=== PATIENT | female | born 1950 | race Hispanic/Latino ===

== ENCOUNTER 2017-02-06 21:37 | Inpatient (IN) | payer MEDICARE, MEDICAID ==
[2017-02-06 21:53] VITALS: BMI 29.7
--- NOTE | 2017-02-06 21:57 | ED PDOC ---
Arrival/HPI - General Time Seen by Provider: 02/06/17 21:38 Historian: Patient, Family (daughter ) - History of Present Illness Narrative History of Present Illness (Text): 02/06/17 21:54 Merrick Goldberg is a 66 year old female, with a history of diabetes, hyperlipidemia, and CVA, presents to the emergency department for evaluation of altered mental status. According to daughter, patient was eating dinner when she suddenly stopped talking and fell off the the chair onto the floor. Daughter reports that patient's eyes were open, but was non-responsive to verbal commands. Currently patient is awake, alert and oriented X3. Denies any headache, dizziness, fever, chills, chest pain, shortness of breath, nausea, vomiting, urinary incontinence, or any other complaints at this time. PMD: . Time/Duration: Prior to Arrival Symptom Onset: Sudden Symptom Course: Improving Context: Home Past Medical History - Provider Review Nursing Documentation Reviewed: Yes - Infectious Disease Hx of Infectious Diseases: None - Cardiac Hx Cardiac Disorders: Yes Hx Hypertension: Yes - Pulmonary Hx Respiratory Disorders: No - Neurological HX Cerebrovascular Accident: Yes - HEENT Hx HEENT Disorder: No - Renal Hx Renal Disorder: No - Endocrine/Metabolic Hx Diabetes Mellitus Type 2: Yes - Hematological/Oncological Hx Blood Disorders: Yes Hx Anemia: Yes Hx Blood Transfusions: No - Integumentary Hx Dermatological Disorder: No - Musculoskeletal/Rheumatological Hx Arthritis: Yes - Gastrointestinal Hx Gastrointestinal Disorders: No - Genitourinary/Gynecological Hx Genitourinary Disorders: Yes Hx Urinary Tract Infection: Yes - Psychiatric Hx Psychophysiologic Disorder: No Hx Substance Use: No - Surgical History Hx Cardiac Catheterization: Yes (MANY MANY YEARS AGO) Hx Coronary Stent: Yes (DAUGHTER THINKS SO , BUT NOT SURE) - Anesthesia Hx Anesthesia: No (IV SEDATION ONLY) Hx Anesthesia Reactions: No Hx Malignant Hyperthermia: No Family/Social History - Physician Review Nursing Documentation Reviewed: Yes Family/Social History: No Known Family HX Smoking Status: Heavy Smoker > 10 Cigarettes Daily Hx Alcohol Use: No Hx Substance Use: No Allergies/Home Meds Allergies/Adverse Reactions: Allergies No Known Allergies Allergy (Verified 06/29/16 06:57) Review of Systems - Physician Review All systems were reviewed & negative as marked: Yes - Review of Systems Constitutional: Normal. absent: Fatigue, Fevers Respiratory: Normal. absent: SOB, Cough Cardiovascular: Normal. absent: Chest Pain, Palpitations Genitourinary Female: Normal. absent: Dysuria, Frequency Neurological: Other (Altered mental status ). absent: Focal Weakness, Seizure Psychiatric: Normal. absent: Anxiety, Depression Physical Exam Vital Signs Temp Pulse Resp BP Pulse Ox 02/06/17 23:38 68 19 138/65 100 02/06/17 21:53 97.7 F 64 16 132/56 L 100 Temperature: Afebrile Blood Pressure: Normal Pulse: Regular Respiratory Rate: Normal Appearance: Positive for: Well-Appearing, Non-Toxic, Comfortable Pain Distress: None Mental Status: Positive for: Alert and Oriented X 3 - Systems Exam Head: Present: Atraumatic, Normocephalic Pupils: Present: PERRL Extroacular Muscles: Present: EOMI Mouth: Present: Moist Mucous Membranes Neck: Present: Normal Range of Motion Respiratory/Chest: Present: Clear to Auscultation, Good Air Exchange. No: Respiratory Distress, Accessory Muscle Use Cardiovascular: Present: Regular Rate and Rhythm, Normal S1, S2. No: Murmurs Abdomen: Present: Normal Bowel Sounds. No: Tenderness, Distention, Peritoneal Signs Upper Extremity: Present: Normal Inspection. No: Cyanosis, Edema Lower Extremity: Present: Normal Inspection. No: Edema Neurological: Present: GCS=15, CN II-XII Intact, Speech Normal, Motor Func Grossly Intact, Normal Sensory Function Skin: Present: Warm, Dry, Normal Color. No: Rashes Psychiatric: Present: Alert, Oriented x 3, Normal Insight, Normal Concentration Medical Decision Making ED Course and Treatment: 02/06/17 22:01 Impression: A 66 year old female who presents to the emergency department for evaluation of syncope and right sided facial droop. Differential Diagnosis included but are not limited to: TIA Plan: -- CT Head -- EKG -- Labs -- Chest X-ray -- Reassess and disposition Progress Notes: 02/06/17 22:01 Code stroke called Case discussed with who does not recommend tPA because symptoms have resolved. EKG reviewed by me: NSR @ [address]pm[address] Left [address] deviation[address] Head reviewed by me: IMPRESSION: No acute findings. Patient evaluated by , who agrees with the plan to observe patient at telemetry for TIA. Accepts patient under hospitalist service. - Lab Interpretations Lab Results: 02/06/17 22:20 02/06/17 22:20 Lab Results 02/06/17 22:20: Blood Type AB NEGATIVE, Antibody Screen Negative, BBK History Checked No verified bt 02/06/17 22:20: Sodium 139, Potassium 4.7, Chloride 108 H, Carbon Dioxide 24, Anion Gap 12, BUN 20, Creatinine 0.8, Est GFR ( Amer) > 60, Est GFR (Non- Af Amer) > 60, Random Glucose 227 H, Calcium 9.2, Total Bilirubin 0.3, AST 27, ALT 33, Alkaline Phosphatase 75, Troponin I < 0.01, Total Protein 7.5, Albumin 4.1, Globulin 3.4, Albumin/Globulin Ratio 1.2, Triglycerides 104, Cholesterol 177, LDL Cholesterol Direct 75, HDL Cholesterol 80 H 02/06/17 22:20: PT 10.8, INR 1.00, APTT 20.5 L 02/06/17 22:20: WBC 9.1 D, RBC 3.49 L, Hgb 10.0 L, Hct 29.7 L, MCV 85.1, MCH 28.7, MCHC 33.7, RDW 12.9, Plt Count 249, MPV 10.9, Gran % 59.7, Lymph % (Auto) 34.1, Preble % (Auto) 4.7, Eos % (Auto) 1.0 L, Baso % (Auto) 0.5, Gran # 5.44, Lymph # 3.1, Preble # 0.4, Eos # 0.1, Baso # 0.05 I have reviewed the lab results: Yes - RAD Interpretation Narrative RAD Interpretations (Text): EXAM: CT Head Without Intravenous Contrast FINDINGS: There is atrophy. There is chronic small vessel ischemic disease. Again seen is old lacunar infarct in the right basal ganglia with ex vacuo dilatation of the adjacent right lateral ventricle unchanged from prior. The previously seen left parietal occipital acute infarct has evolved to chronic encephalomalacia. No acute infarct. There is no hemorrhage or edema. No significant fluid in the sinuses. The osseous structures are normal. IMPRESSION: No acute findings. Radiology Orders: 02/06/17 21:53 HEAD W/O (CODE STROKE) [CT] Stat CHEST PORTABLE [RAD] Stat Outer Diameter Technician: Radiologist - Medication Orders Current Medication Orders: Acetaminophen (Tylenol 325mg Tab) 650 mg PO Q6H PRN PRN Reason: Pain, moderate (4-7) Aspirin (Aspirin Chewable) 81 mg PO DAILY [facility] Atorvastatin Calcium (Lipitor) 40 mg PO HS [facility] Donepezil HCl (Aricept) 5 mg PO HS [facility] Enoxaparin Sodium (Lovenox) 40 mg SC DAILY [facility] PRN Reason: Protocol Hydralazine HCl (Apresoline) 10 mg IVP Q6H PRN PRN Reason: Systolic Blood Pressure Sodium Chloride (Sodium Chloride 0.9%) 1,000 mls @ 100 mls/hr IV .Q10H [facility] Stop: 02/07/17 19:14 Last Admin: 02/06/17 23:47 Dose: 100 mls/hr Insulin Detemir (Levemir) 20 unit SC HS [facility] Nicotine (Nicoderm Cq) 1 patch TD DAILY [facility] Discontinued Medications Insulin Detemir (Levemir) 10 unit SC ONCE ONE Stop: 02/07/17 00:02 Last Admin: 02/07/17 00:55 Dose: Not Given Non-Admin Reason: Patient Refused NIHSS Scale ([place]) Time Performed: 21:50 - How Severe is the Stoke Baseline Level of Consciousness: 0=Alert LOC to Questions: 0=Both comments correct LOC to commands: 0=Obeys both correctly Best Gaze: 0=Normal Visual: 0=No visual loss Facial: 0=Normal Motor Arm - Left: 0=No drift Motor Arm - Right: 0=No drift Motor Leg - Left: 0=No drift Motor Leg - Right: 0=No drift Limb Ataxia: 0=Absent Sensory: 0=Normal Best Language: 0=No aphasia Dysarthia: 0=Normal articulation Extinction & Inattention (Neglect): 0=Normal, no object Score: 0 Risk Level: No Stroke Risk rTPA Inclusion/Exclusion - Refusal of Treatment Patient Refused Treatment: No - Inclusion Criteria for Altepase Patient is 18 years or Older: Yes The Clinical Diagnosis of Ischemic Stroke That is Causing a Potentially Disabling Neurological Deficit: No Time of Onset is Well Established to be Less Than 270 Minute Before Treatment Would Begin: Yes Risk/Benefit Discussed With Patient/Family Member Present: Yes - Exclusion Criteria for Altepase Uncontrolled Hypertension at Time of Treatment (Systolic BP above 185 or Diastolic BP above 110 mmHg): No - Warning to TPA With Conditions Following Conditions Weighed Against Anticipated Benefit: Yes Condition: Rapid Improvement - Scribe Statement The provider has reviewed the documentation as recorded by the Leandroibe Pablo Saha Provider Attestation: All medical record entries made by the Leandroibmahendra were at my direction and personally dictated by me. I have reviewed the chart and agree that the record accurately reflects my personal performance of the history, physical exam, medical decision making, and the department course for this patient. I have also personally directed, reviewed, and agree with the discharge instructions and disposition. Disposition/Present on Arrival - Present on Arrival Any Indicators Present on Arrival: No History of DVT/PE: No History of Uncontrolled Diabetes: Yes Urinary Catheter: No History Surgical Site Infection Following: None - Disposition Have Diagnosis and Disposition been Completed?: Yes Diagnosis: Altered mental state, Syncope, Transient ischemic attack Disposition: HOSPITALIZED Disposition Time: 22:45 Condition: GOOD
--- NOTE | 2017-02-06 22:17 | CT ---
EXAM: CT Head Without Intravenous Contrast CLINICAL HISTORY: 66 years old, female; Signs and symptoms; Other: Possible CVA; Additional info: Code stroke TECHNIQUE: Axial computed tomography images of the head/brain without intravenous contrast. This CT exam was performed using one or more of the following dose reduction techniques: automated exposure control, adjustment of the mA and/or kV according to patient size, and/or use of iterative reconstruction technique. EXAM DATE/TIME: 02/06/2017 9:53 PM COMPARISON: CT - HEAD W/O CONTRAST 09/28/2016 9:23:25 PM FINDINGS: There is atrophy. There is chronic small vessel ischemic disease. Again seen is old lacunar infarct in the right basal ganglia with ex vacuo dilatation of the adjacent right lateral ventricle unchanged from prior. The previously seen left parietal occipital acute infarct has evolved to chronic encephalomalacia. No acute infarct. There is no hemorrhage or edema. No significant fluid in the sinuses. The osseous structures are normal. IMPRESSION: No acute findings.
[2017-02-06 22:28] LABS: ADD MANUAL DIFF? NO
[2017-02-06 22:42] LABS: ALB/GLOB RATIO 1.2 (1.1-1.8); ALKALINE PHOSPHATASE 75 U/L (38-133); ALT/SGPT 33 U/L (7-56); AST/SGOT 27 U/L (15-39); BILIRUBIN,TOTAL 0.3 mg/dL (0.2-1.3); BLOOD UREA NITROGEN 20 mg/dL (7-21); CALCIUM 9.2 mg/dL (8.4-10.5); CARBON DIOXIDE 24 mmol/L (21-33); CHLORIDE 108 mmol/L (98-107); CHOLESTEROL 177 mg/dL (130-200); GFR AFRICAN-AMERICAN > 60; GLUCOSE,RANDOM 227 mg/dL (70-110); POTASSIUM 4.7 mmol/L (3.6-5.0); SODIUM 139 mmol/L (132-148); TOTAL PROTEIN 7.5 g/dL (5.8-8.3)
[2017-02-06 23:03] LABS: BASO # 0.05 K/mm3 (0.0-2.0); BASO % 0.5 % (0.0-3.0); EOS # 0.1 (0.0-0.7); GRAN # 5.44 (1.4-6.5); GRAN % 59.7 % (50.0-68.0); HEMATOCRIT 29.7 % (36.0-48.0); LYMPH # 3.1 (1.2-3.4); LYMPH % 34.1 % (22.0-35.0); MEAN CELL VOLUME 85.1 fL (80.0-105.0); MEAN CORPUSCULAR HEMOGLOBIN 28.7 pg (25.0-35.0); MEAN CORPUSCULAR HGB CONC 33.7 g/dl (31.0-37.0); MEAN PLATELET VOLUME 10.9 fl (7.0-11.0); MONO # 0.4 (0.1-0.6); MONO % 4.7 % (1.0-6.0); PLATELET COUNT 249 10^3/uL (120.0-450.0); RED CELL DISTRIBUTION WIDTH 12.9 % (11.5-14.5); TROPONIN I < 0.01 ng/mL; WHITE BLOOD COUNT 9.1 10^3/ul (4.5-11.0)
[2017-02-06 23:05] LABS: PARTIAL THROMBOPLASTIN TIME 20.5 Seconds (23.7-30.8)
--- NOTE | 2017-02-06 23:13 | CP.PCM.HP ---
History of Present Illness - History of Present Illness History of Present Illness: CC: CODE Stroke after AMS today HPI: 66 y/o female with a PMHx CVA (09/2016), Htn, DM, Dementia is brought in to the ED today via EMS due to a sudden change in her mental status witness by her family. Patient's daughter states they were all at the dinner table eating dinner when the patient suddenly stopped talking and appeared to have a blank stare on her face and fell off her chair on her side to the floor. She remained awake and did not lose conciousness however was not verbally responsive and had to have the food in her mouth removed by hand. Her daughter reports that she appeared "pale and yellow." EMS is reported to have found the patient with an adequate FSBS of 177 however blood pressure was 90/50mmHg and she received a 500cc IVF bolus en route to the ED. In the ED a Code stroke was called and her head CT returned negative for an acute CVA. tPA was not recommended as patient's symptoms resolved and she currently did not complain of having major defecits. The patient herself currently is complaining of left lower extremity weakness as well as numbness and tingling which is new, otherwise denies any complaints of shortness of breath, chest pain/heaviness, dizziness, light headedness, fever, chills, headache, nausea or vomiting. The patient's daughter states that the patient had stopped smoking for about 1 month after her last stroke, however began smoking again a few weeks after returning home from rehab. PMhx: Dementia (diagnosed 05/2016, daughter is unable to relay which type) CVA 09/2016 (patient was [place] [facility], treated for about a week and then discharged to [facility] where she stayed another 2 weeks) Htn DM OA Allergies:NKDA Fam Hx: DM, Htn, CAD in multiple family members Soc Hx: 2 ppd for over 50yrs; denies etoh use; denies illicit drug use, lives at home with her daughter and her family Meds: Levemir 20units SQ hs Metformin 1000mg po bid ASA 81mg po daily Donepezil - dose unknown Zestril 5mg po daily Lipitor 40mg po hs Tylenol prn Ferrex pills Present on Admission - Present on Admission Any Indicators Present on Admission: Yes History of Uncontrolled Diabetes: Yes Review of Systems - Review of Systems Review of Systems: As per HPI otherwise negative for a 12 point ROS Past Patient History - Infectious Disease Hx of Infectious Diseases: None - Past Medical History & Family History Past Medical History?: Yes - Past Social History Smoking Status: Heavy Smoker > 10 Cigarettes Daily Alcohol: None Drugs: Denies Home Situation {Lives}: With Family - CARDIAC Hx Cardiac Disorders: Yes Hx Hypertension: Yes - PULMONARY Hx Respiratory Disorders: No - NEUROLOGICAL HX Cerebrovascular Accident: Yes - HEENT Hx HEENT Problems: No - RENAL Hx Chronic Kidney Disease: No - ENDOCRINE/METABOLIC Hx Diabetes Mellitus Type 2: Yes - HEMATOLOGICAL/ONCOLOGICAL Hx Blood Disorders: Yes Hx Anemia: Yes Hx Blood Transfusions: No - INTEGUMENTARY Hx Dermatological Problems: No - MUSCULOSKELETAL/RHEUMATOLOGICAL Hx Arthritis: Yes - GASTROINTESTINAL Hx Gastrointestinal Disorders: No - GENITOURINARY/GYNECOLOGICAL Hx Genitourinary Disorders: Yes Hx Urinary Tract Infection: Yes - PSYCHIATRIC Hx Psychophysiologic Disorder: No Hx Substance Use: No - SURGICAL HISTORY Hx Cardiac Catheterization: Yes (MANY MANY YEARS AGO) Hx Coronary Stent: Yes (DAUGHTER THINKS SO , BUT NOT SURE) - ANESTHESIA Hx Anesthesia: No (IV SEDATION ONLY) Hx Anesthesia Reactions: No Hx Malignant Hyperthermia: No Meds Allergies/Adverse Reactions: Allergies Allergy/AdvReac Type Severity Reaction Status Date / Time No Known Allergies Allergy Verified 06/29/16 06:57 Physical Exam - Constitutional Appears: Non-toxic, No Acute Distress - Head Exam Head Exam: ATRAUMATIC, NORMOCEPHALIC - Eye Exam Eye Exam: EOMI - ENT Exam ENT Exam: Mucous Membranes Moist - Neck Exam Neck exam: Positive for: Normal Inspection - Respiratory Exam Respiratory Exam: Clear to Auscultation Bilateral, NORMAL BREATHING PATTERN. absent: Rales, Rhonchi, Wheezes - Cardiovascular Exam Cardiovascular Exam: REGULAR RHYTHM, +S1, +S2 - GI/Abdominal Exam GI & Abdominal Exam: Soft. absent: Distended, Guarding, Rebound, Tenderness - Rectal Exam Rectal Exam: Deferred - Neurological Exam Neurological exam: Alert, CN II-XII Intact, Oriented x3 Additional comments: 5/5 strength RUE/RLE; 3/5 strength LLE, 5/5 strength LUE; unable to discriminate between 2 points on the left lower extremity, able to tell on the RLE - Psychiatric Exam Psychiatric exam: Normal Affect, Normal Mood - Skin Skin Exam: Dry, Intact, Normal Color, Warm Results - Vital Signs Recent Vital Signs: Last Vital Signs Temp 97.7 F 02/06/17 21:53 Pulse 64 02/06/17 21:53 Resp 16 02/06/17 21:53 BP 132/56 L 02/06/17 21:53 Pulse Ox 100 02/06/17 21:53 - Labs Result Diagrams: 02/06/17 22:20 Labs: Laboratory Results - last 24 hr 02/06/17 22:20 Sodium 139 Potassium 4.7 Chloride 108 H Carbon Dioxide 24 Anion Gap 12 BUN 20 Creatinine 0.8 Est GFR ( Amer) > 60 Est GFR (Non-Af Amer) > 60 Random Glucose 227 H Calcium 9.2 Total Bilirubin 0.3 AST 27 ALT 33 Alkaline Phosphatase 75 Total Protein 7.5 Albumin 4.1 Globulin 3.4 Albumin/Globulin Ratio 1.2 Triglycerides 104 Cholesterol 177 HDL Cholesterol 80 H - EKG Data EKG Interpreted by: Myself EKG shows normal: Sinus rhythm (NSR @ 67 bpm; no ST elevations or depressions noted) - Imaging and Cardiology CT scan - head Status: Image reviewed by me, Report reviewed by me (no acute ICH/mass/shift) Assessment & Plan - Assessment and Plan (Free Text) Assessment: 66 y/o female with a PMHx Htn, DM, CVA earlier this year, tobacco use and Dementia presents to the ED after a brief period of AMS concerning for another CVA. Initial CT of the head is negative and patient is now more alert and responsive however does still have complaints of numbness and weakness of her left lower extremity. She will be admitted to further evaluate for TIA vs CVA. Plan: 1) AMS - CVA vs TIA vs transient hypotension - initial CT Head is negative; will place on neurocheck Q4h; c/w ASA 81mg po daily, lipitor 40hs; neuro consult with Dr. Reynolds who is aware of the patient. Patient was noted to improve rapidly with the administration of a 500cc fluid bolus by EMS which may also be a cause for her sudden change in mental status, however it does not explain the new left lower extremity weakness and numbness. May need an MRI tomorrow if her weakness persists; will defer to neurology. PT/OT eval as well as swallow eval in the aM. 2) Htn - will monitor and hold off on hypotensive agents for now 3) DM - will place on Levemir 20units HS + ISS; hold metformin for now; FS ACHS 4) Dementia - c/w donepezil 5mg po hs beginning tomorrow after she is seen by a speech therapist for a formal swallow evaluation 5) GI/DVT ppx - will place her on protonix po daily; Lovenox SQ QD 6) Tobacco use - nicotine patch 14mcg td daily while she is an inpatient.
[2017-02-06] MEDS ORDERED: Sodium Chloride 0.9% 1,000 ML IV SCH (23:15)
[2017-02-07] MEDS ORDERED: Insulin Detemir 100 units/ml Vial (Levemir) SC ONE (00:01)
[2017-02-07 06:57] LABS: ADD MANUAL DIFF? NO
[2017-02-07 07:01] LABS: BASO # 0.03 K/mm3 (0.0-2.0); BASO % 0.4 % (0.0-3.0); EOS # 0.1 (0.0-0.7); EOS % 0.9 % (1.5-5.0); GRAN # 5.03 (1.4-6.5); GRAN % 61.3 % (50.0-68.0); HEMATOCRIT 30.5 % (36.0-48.0); LYMPH # 2.7 (1.2-3.4); LYMPH % 32.8 % (22.0-35.0); MEAN CELL VOLUME 84.5 fL (80.0-105.0); MEAN CORPUSCULAR HEMOGLOBIN 29.4 pg (25.0-35.0); MEAN CORPUSCULAR HGB CONC 34.8 g/dl (31.0-37.0); MEAN PLATELET VOLUME 10.7 fl (7.0-11.0); MONO # 0.4 (0.1-0.6); MONO % 4.6 % (1.0-6.0); PLATELET COUNT 234 10^3/uL (120.0-450.0); RED CELL DISTRIBUTION WIDTH 12.9 % (11.5-14.5); WHITE BLOOD COUNT 8.2 10^3/ul (4.5-11.0)
[2017-02-07 07:17] LABS: ALB/GLOB RATIO 1.3 (1.1-1.8); ALKALINE PHOSPHATASE 79 U/L (38-133); ALT/SGPT 31 U/L (7-56); AST/SGOT 30 U/L (15-39); BILIRUBIN,TOTAL 0.3 mg/dL (0.2-1.3); BLOOD UREA NITROGEN 20 mg/dL (7-21); CARBON DIOXIDE 24 mmol/L (21-33); CHLORIDE 111 mmol/L (95-110); GFR AFRICAN-AMERICAN > 60; GLUCOSE,RANDOM 242 mg/dL (70-110); POTASSIUM 4.3 mmol/L (3.6-5.0); SODIUM 141 mmol/L (132-148); TOTAL PROTEIN 7.3 g/dL (5.8-8.3)
--- NOTE | 2017-02-07 08:01 | RAD ---
HISTORY: tia COMPARISON: 09/28/2016 FINDINGS: LUNGS: No active pulmonary disease. PLEURA: No significant pleural effusion identified, no pneumothorax apparent. CARDIOVASCULAR: Normal. OSSEOUS STRUCTURES: No significant abnormalities. VISUALIZED UPPER ABDOMEN: Normal. OTHER FINDINGS: None. IMPRESSION: No active disease.
[2017-02-07] MEDS: Enoxaparin 40 mg Syringe SC SCH (09:34)
--- NOTE | 2017-02-07 14:26 | CP.PCM.PN ---
<Henry Whyte - Last Filed: 02/07/17 15:38> Subjective - Date & Time of Evaluation Date of Evaluation: 02/07/17 Time of Evaluation: 09:00 - Subjective Subjective: Patient seen and examined this morning w/ medical attending. Patient appears to be in good mood. Patient is out of bed to chair. Patient reports improvement in her left lower extremity, she states she has better control over it than she did yesterday. No acute events over night. Tolerating diet. Objective - Vital Signs/Intake and Output Vital Signs (last 24 hours): Temp Pulse Resp BP Pulse Ox 98 F 69 20 166/57 H 99 02/07/17 12:00 02/07/17 12:28 02/07/17 12:00 02/07/17 12:28 02/07/17 05:47 Intake and Output: 02/07/17 02/07/17 06:59 18:59 Intake Total 500 Output Total 0 Balance 500 - Medications Medications: Current Medications Acetaminophen (Tylenol 325mg Tab) 650 mg PO Q6H PRN PRN Reason: Pain, moderate (4-7) Aspirin (Aspirin Chewable) 81 mg PO DAILY [facility] Last Admin: 02/07/17 09:31 Dose: 81 mg Atorvastatin Calcium (Lipitor) 40 mg PO HS [facility] Donepezil HCl (Aricept) 5 mg PO HS [facility] Enoxaparin Sodium (Lovenox) 40 mg SC DAILY [facility] PRN Reason: Protocol Last Admin: 02/07/17 09:34 Dose: 40 mg Hydralazine HCl (Apresoline) 10 mg IVP Q6H PRN PRN Reason: Systolic Blood Pressure Insulin Detemir (Levemir) 20 unit SC HS [facility] Insulin Human Regular (Humulin R Low) 0 units SC ACHS [facility] PRN Reason: Protocol Lisinopril (Zestril) 5 mg PO DAILY [facility] Last Admin: 02/07/17 12:28 Dose: 5 mg Nicotine (Nicoderm Cq) 1 patch TD DAILY [facility] Last Admin: 02/07/17 09:31 Dose: 1 patch - Labs Labs: 02/07/17 06:45 02/07/17 06:45 PT 10.8 Seconds (9.9-11.8) 02/06/17 22:20 INR 1.00 (0.93-1.08) 02/06/17 22:20 APTT 20.5 Seconds (23.7-30.8) L 02/06/17 22:20 - Constitutional Appears: No Acute Distress - Head Exam Head Exam: NORMOCEPHALIC - Eye Exam Eye Exam: Normal appearance - ENT Exam ENT Exam: Mucous Membranes Moist - Respiratory Exam Respiratory Exam: NORMAL BREATHING PATTERN - Cardiovascular Exam Cardiovascular Exam: +S1, +S2. absent: Tachycardia - GI/Abdominal Exam GI & Abdominal Exam: Soft. absent: Distended, Firm, Guarding, Rigid, Tenderness - Neurological Exam Neurological Exam: Alert, Awake Neuro motor strength exam: Left Upper Extremity: 4, Right Upper Extremity: 5, Left Lower Extremity: 3 (left thigh), Right Lower Extremity: 5 - Psychiatric Exam Psychiatric exam: Normal Mood - Skin Skin Exam: Dry, Warm Assessment and Plan - Assessment and Plan (Free Text) Assessment: 66F with a PMHx HTN , DM, CVA (09/2016), tobacco use and Dementia presents to the ED after a brief period of AMS concerning for another CVA. Initial CT of the head is negative and patient is now more alert and responsive reports numbness and weakness have improved. Plan: 1) AMS - CVA vs TIA vs transient hypotension -Initial CT Head is negative -neurocheck Q4h -ASA 81mg po daily -Lipitor 40hs -Neuro consult with Dr. Reynolds, recs appreciated -F/u MRI -PT/OT eval 2) HTN -will monitor -Lisinopril 5mg daily 3) DM -Levemir 20units HS + ISS; hold metformin for now; FS ACHS -Resume metformin 4) Dementia - donepezil 5mg po hs 5) GI/DVT ppx -Protonix -Lovenox 6) Tobacco use - nicotine patch 14mcg td daily while she is an inpatient. Assessment and plan discussed with medical attending. <Zheng CARRILLO,Marcia - Last Filed: 02/07/17 17:45> Objective - Vital Signs/Intake and Output Vital Signs (last 24 hours): Temp Pulse Resp BP Pulse Ox 98 F 61 20 166/57 H 99 02/07/17 12:00 02/07/17 14:00 02/07/17 12:00 02/07/17 12:28 02/07/17 05:47 Intake and Output: 02/07/17 02/07/17 06:59 18:59 Intake Total 1380 Output Total 2000 Balance -620 - Medications Medications: Current Medications Acetaminophen (Tylenol 325mg Tab) 650 mg PO Q6H PRN PRN Reason: Pain, moderate (4-7) Aspirin (Aspirin Chewable) 81 mg PO DAILY [facility] Last Admin: 02/07/17 09:31 Dose: 81 mg Atorvastatin Calcium (Lipitor) 40 mg PO HS [facility] Donepezil HCl (Aricept) 5 mg PO HS [facility] Enoxaparin Sodium (Lovenox) 40 mg SC DAILY [facility] PRN Reason: Protocol Last Admin: 02/07/17 09:34 Dose: 40 mg Hydralazine HCl (Apresoline) 10 mg IVP Q6H PRN PRN Reason: Systolic Blood Pressure Insulin Detemir (Levemir) 20 unit SC HS [facility] Insulin Human Regular (Humulin R Low) 0 units SC ACHS [facility] PRN Reason: Protocol Lisinopril (Zestril) 5 mg PO DAILY [facility] Last Admin: 02/07/17 12:28 Dose: 5 mg Metformin HCl (Glucophage) 1,000 mg PO BID [facility] Last Admin: 02/07/17 17:36 Dose: 1,000 mg Nicotine (Nicoderm Cq) 1 patch TD DAILY [facility] Last Admin: 02/07/17 09:31 Dose: 1 patch - Labs Labs: 02/07/17 06:45 02/07/17 06:45 PT 10.8 Seconds (9.9-11.8) 02/06/17 22:20 INR 1.00 (0.93-1.08) 02/06/17 22:20 APTT 20.5 Seconds (23.7-30.8) L 02/06/17 22:20 Attending/Attestation - Attestation I have personally seen and examined this patient.: Yes I have fully participated in the care of the patient.: Yes I have reviewed all pertinent clinical information, including history, physical exam and plan: Yes Notes (Text): 02/07/17 17:43 Patient was seen and examined with medical aides teacher .Agreed with resident assessment and plan. Patient leg weakness has improved.She is feeling at her base line.We will follow up MRI of Brain and will follow up Neurology consult. If MRI showed any new infarct, will switch aspirin to Plavix. Management plan was discussed in detail with patient Education was provided.
[2017-02-07] MEDS: Insulin Reg-LOW-Coverage SC SCH ×2 (17:36→21:49)
--- NOTE | 2017-02-07 19:33 | CON ---
DATE: 02/07/2017 CHIEF COMPLAINT: Altered mental status. HISTORY OF PRESENT ILLNESS: This is a 66-year-old woman with a history of CVA in 09/2016, hypertensio n, dementia, type 2 diabetes mellitus who had a sudden change in mental status witnessed by the famil y where she was at the dinner table eating dinner when suddenly she started talking and had a blank s tare on her face and fell off her chair on the side and did not lose any consciousness but had food i n her mouth and she appeared kind of pale and yellow; however, her blood pressure was taken where it was 90/50 and received a 500 mL IV bolus in the en route. Currently, CT head showed no acute intracr anial abnormalities. There is an old right lacunar basal ganglia infarct. Currently, she is sitting up and doing much better. She is no longer complaining of any paresthesias in her extremities, movi ng all extremities without any difficulty and is smiling and tolerating her diet. Her hemoglobin A1c is 10.6 indicating poorly controlled diabetes. She does have evidence of cognitive impairment on ex amination. PAST MEDICAL HISTORY: Type 2 diabetes mellitus, hypertension, CVA on 09/2016, history of tobacco use. SOCIAL HISTORY: Still smokes less than 10 cigarettes per day. No illicit alcohol or illicit drug us e. REVIEW OF SYSTEMS: A 14-point review of systems is negative except in the HPI. ALLERGIES: No known allergies. CURRENT MEDICATIONS: Reviewed via nurses' reconciliation sheet. PHYSICAL EXAMINATION: VITAL SIGNS: Temperature 97.6, pulse rate is 64, blood pressure 160/77, respiratory rate of 20. GENERAL: The patient is sitting up in bed in no acute distress. HEENT: Atraumatic, normocephalic. PERRLA. Extraocular muscles is intact. NECK: Supple, no JVD, no adenopathy noted. LUNGS: Clear to auscultation. No adventitious sounds. HEART: S1, S2, normal rate and rhythm. No murmurs, rubs, or gallops. ABDOMEN: Soft, nontender, nondistended. Bowel sounds are present. EXTREMITIES: No clubbing, no cyanosis. Peripheral pulses 2+ felt bilaterally. NEUROLOGIC: The patient is alert, oriented to person, place, month and year. Speech is fluent, with out any errors. Cranial nerves II-XII are intact. MOTOR: Moves all extremities equally. No pronator drift seen. SENSORY: Decreased light touch, pinprick bilaterally. Decreased vibration in toes. DTRs are 2+ throughout and 1 in both knees and 0 at the ankles. She does have evidence of cognitive impairmen t. She has poor attention span, poor recall after 5 minutes and slow thought process. COORDINATION: [id number] intact. GAIT: Deferred for now. LABORATORY DATA: A1c is 10.6 indicating poorly controlled diabetes. CT head showed no acute intracr anial abnormalities. Sodium is 141, potassium 4.3, chloride of 111, carbon dioxide 24, BUN of 20, cr eatinine 0.7, glucose of 242. ASSESSMENT AND PLAN: This is a 66-year-old woman with a past medical history of hypertension, diabet es, history of cerebrovascular accident earlier this year, tobacco use, dementia, had a brief period of altered mental status and CT head showed no acute intracranial abnormality. It was found that she had a low systolic and diastolic blood pressure of 90/50 and was given transient IV bolus of fluid a nd improved. Currently, she is denying any paresthesias in the extremities as she was complaining of on her admission. She does have evidence of diabetic peripheral neuropathy along with her uncontrol led diabetes with an A1c of 10.6. As well, she does have evidence of moderate cognitive impairment f rom underlying medical conditions. At this time, recommend: 1. Aspirin 81 mg and Lipitor 40 mg p.o. daily for stroke prevention. 2. Diabetic education needs to be given. Needs to have blood sugars between 140-180 and needs andrew r diabetic control given the uncontrolled A1c of 10.6. 3. Monitor electrolytes and correct accordingly. 4. Consider some physical therapy and follow up with the primary team with no further neurological w orkup needed at this time; will sign off. Arian Reynolds MD cc: [id number] TT: 02/07/2017 19:32:28 Confirmation # [id number] Dictation # [id number] eliza
[2017-02-07] MEDS: Insulin Detemir 100 units/ml Vial (Levemir) SC SCH (21:52)
--- NOTE | 2017-02-08 01:43 | CARD ---
APPROVED REPORT EKG Measurement Heart [id number] <Conclusion> Normal sinus rhythm Left axis deviation Moderate voltage criteria for LVH, may be normal variant Cannot rule out Septal infarct, age undetermined Abnormal ECG
[2017-02-08 07:37] LABS: ADD MANUAL DIFF? NO
[2017-02-08] MEDS: Insulin Reg-LOW-Coverage SC SCH ×4 (07:39→22:10)
[2017-02-08 07:47] LABS: BASO # 0.03 K/mm3 (0.0-2.0); BASO % 0.5 % (0.0-3.0); EOS # 0.1 (0.0-0.7); EOS % 1.4 % (1.5-5.0); GRAN # 2.63 (1.4-6.5); GRAN % 41.3 % (50.0-68.0); HEMATOCRIT 29.1 % (36.0-48.0); LYMPH # 3.2 (1.2-3.4); LYMPH % 50.4 % (22.0-35.0); MEAN CELL VOLUME 84.3 fL (80.0-105.0); MEAN CORPUSCULAR HEMOGLOBIN 28.1 pg (25.0-35.0); MEAN CORPUSCULAR HGB CONC 33.3 g/dl (31.0-37.0); MEAN PLATELET VOLUME 10.7 fl (7.0-11.0); MONO # 0.4 (0.1-0.6); MONO % 6.4 % (1.0-6.0); PLATELET COUNT 266 10^3/uL (120.0-450.0); RED CELL DISTRIBUTION WIDTH 13.2 % (11.5-14.5); WHITE BLOOD COUNT 6.4 10^3/ul (4.5-11.0)
[2017-02-08] MEDS: Enoxaparin 40 mg Syringe SC SCH (09:41)
--- NOTE | 2017-02-08 12:24 | CP.PCM.DIS ---
Provider - Provider Date of Admission: 02/06/17 22:47 Attending physician: Marcia Calzada MD Primary care physician: Avelino Greenfield MD [facility] Course - Lab Results Lab Results: Most Recent Lab Values WBC 6.4 10^3/ul (4.5-11.0) D 02/08/17 05:00 RBC 3.45 10^6/uL (3.5-6.1) L 02/08/17 05:00 Hgb 9.7 gm/dL (12.0-16.0) L 02/08/17 05:00 Hct 29.1 % (36.0-48.0) L 02/08/17 05:00 MCV 84.3 fL (80.0-105.0) 02/08/17 05:00 MCH 28.1 pg (25.0-35.0) 02/08/17 05:00 MCHC 33.3 g/dl (31.0-37.0) 02/08/17 05:00 RDW 13.2 % (11.5-14.5) 02/08/17 05:00 Plt Count 266 10^3/uL (120.0-450.0) 02/08/17 05:00 MPV 10.7 fl (7.0-11.0) 02/08/17 05:00 Gran % 41.3 % (50.0-68.0) L 02/08/17 05:00 Lymph % (Auto) 50.4 % (22.0-35.0) H 02/08/17 05:00 Ransom % (Auto) 6.4 % (1.0-6.0) H 02/08/17 05:00 Eos % (Auto) 1.4 % (1.5-5.0) L 02/08/17 05:00 Baso % (Auto) 0.5 % (0.0-3.0) 02/08/17 05:00 Gran # 2.63 (1.4-6.5) 02/08/17 05:00 Lymph # 3.2 (1.2-3.4) 02/08/17 05:00 Ransom # 0.4 (0.1-0.6) 02/08/17 05:00 Eos # 0.1 (0.0-0.7) 02/08/17 05:00 Baso # 0.03 K/mm3 (0.0-2.0) 02/08/17 05:00 PT 10.8 Seconds (9.9-11.8) 02/06/17 22:20 INR 1.00 (0.93-1.08) 02/06/17 22:20 APTT 20.5 Seconds (23.7-30.8) L 02/06/17 22:20 Sodium 141 mmol/L (132-148) 02/07/17 06:45 Potassium 4.3 mmol/L (3.6-5.0) 02/07/17 06:45 Chloride 111 mmol/L (95-110) H 02/07/17 06:45 Carbon Dioxide 24 mmol/L (21-33) 02/07/17 06:45 Anion Gap 10 (10-20) 02/07/17 06:45 BUN 20 mg/dL (7-21) 02/07/17 06:45 Creatinine 0.7 mg/dL (0.5-1.4) 02/07/17 06:45 Est GFR ( Amer) > 60 02/07/17 06:45 Est GFR (Non-Af Amer) > 60 02/07/17 06:45 POC Glucose (mg/dL) 188 mg/dL (65-110) H 02/08/17 11:15 Random Glucose 242 mg/dL (70-110) H 02/07/17 06:45 Hemoglobin A1c 10.6 % (4.2-6.5) H 02/07/17 06:45 Calcium 9.0 mg/dL (8.4-10.5) 02/07/17 06:45 Total Bilirubin 0.3 mg/dL (0.2-1.3) 02/07/17 06:45 AST 30 U/L (15-39) 02/07/17 06:45 ALT 31 U/L (7-56) 02/07/17 06:45 Alkaline Phosphatase 79 U/L (38-133) 02/07/17 06:45 Troponin I < 0.01 ng/mL 02/06/17 22:20 Total Protein 7.3 g/dL (5.8-8.3) 02/07/17 06:45 Albumin 4.1 g/dL (3.0-4.8) 02/07/17 06:45 Globulin 3.1 gm/dL 02/07/17 06:45 Albumin/Globulin Ratio 1.3 (1.1-1.8) 02/07/17 06:45 Triglycerides 104 mg/dL (35-160) 02/06/17 22:20 Cholesterol 177 mg/dL (130-200) 02/06/17 22:20 LDL Cholesterol Direct 75 mg/dL (0-129) 02/06/17 22:20 HDL Cholesterol 80 mg/dL (29-60) H 02/06/17 22:20 Blood Type AB NEGATIVE 02/06/17 22:20 Blood Type Confirm AB NEGATIVE 02/07/17 06:45 Antibody Screen Negative 02/06/17 22:20 BBK History Checked No verified bt 02/06/17 22:20 Discharge Exam - Head Exam Head Exam: NORMOCEPHALIC Discharge Plan - Follow Up Plan Condition: GOOD Disposition: HOME/ ROUTINE Referrals: Avelino Greenfield [Primary Care Provider] -
--- NOTE | 2017-02-08 15:57 | CP.PCM.PN ---
<Henry Whyte - Last Filed: 02/08/17 15:59> Subjective - Date & Time of Evaluation Date of Evaluation: 02/08/17 Time of Evaluation: 08:15 - Subjective Subjective: Patient seen and examined this morning with medical attending. Patient is alert and oriented to person and place. No acute events over night. Field Appraiser phone used to facilitated interview. 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 Tolerating diet. Awaiting placement as daughter states she is incapable of taking care of her mother. Objective - Vital Signs/Intake and Output Vital Signs (last 24 hours): Temp Pulse Resp BP Pulse Ox 98.3 F 59 L 18 150/69 100 02/08/17 12:00 02/08/17 12:00 02/08/17 12:00 02/08/17 12:00 02/08/17 05:38 Intake and Output: 02/08/17 02/08/17 06:59 18:59 Intake Total 533 Output Total 1000 Balance -467 - Medications Medications: Current Medications Acetaminophen (Tylenol 325mg Tab) 650 mg PO Q6H PRN PRN Reason: Pain, moderate (4-7) Aspirin (Aspirin Chewable) 81 mg PO DAILY [facility] Last Admin: 02/08/17 09:41 Dose: 81 mg Atorvastatin Calcium (Lipitor) 40 mg PO HS [facility] Last Admin: 02/07/17 21:27 Dose: 40 mg Donepezil HCl (Aricept) 5 mg PO HS [facility] Last Admin: 02/07/17 21:27 Dose: 5 mg Enoxaparin Sodium (Lovenox) 40 mg SC DAILY [facility] PRN Reason: Protocol Last Admin: 02/08/17 09:41 Dose: 40 mg Hydralazine HCl (Apresoline) 10 mg IVP Q6H PRN PRN Reason: Systolic Blood Pressure Insulin Detemir (Levemir) 20 unit SC HS [facility] Last Admin: 02/07/17 21:52 Dose: 20 unit Insulin Human Regular (Humulin R Low) 0 units SC [facility] PRN Reason: Protocol Last Admin: 02/08/17 11:37 Dose: 1 units Lisinopril (Zestril) 5 mg PO DAILY [facility] Last Admin: 02/08/17 09:41 Dose: 5 mg Metformin HCl (Glucophage) 1,000 mg PO BID [facility] Last Admin: 02/08/17 09:40 Dose: 1,000 mg Nicotine (Nicoderm Cq) 1 patch TD DAILY [facility] Last Admin: 02/08/17 09:41 Dose: 1 patch - Labs Labs: 02/08/17 05:00 02/07/17 06:45 PT 10.8 Seconds (9.9-11.8) 02/06/17 22:20 INR 1.00 (0.93-1.08) 02/06/17 22:20 APTT 20.5 Seconds (23.7-30.8) L 02/06/17 22:20 - Constitutional Appears: No Acute Distress - Head Exam Head Exam: NORMOCEPHALIC - Eye Exam Eye Exam: Normal appearance - ENT Exam ENT Exam: Mucous Membranes Moist - Respiratory Exam Respiratory Exam: NORMAL BREATHING PATTERN - Cardiovascular Exam Cardiovascular Exam: +S1, +S2 - GI/Abdominal Exam GI & Abdominal Exam: Soft. absent: Distended, Firm, Guarding, Rigid, Tenderness - Extremities Exam Extremities Exam: absent: Pedal Edema - Neurological Exam Neurological Exam: Alert, Awake - Psychiatric Exam Psychiatric exam: Normal Mood - Skin Skin Exam: Dry, Intact, Normal Color Assessment and Plan - Assessment and Plan (Free Text) Assessment: 66F with a PMHx HTN , DM, CVA (09/2016), tobacco use and Dementia presents to the ED after a brief period of AMS concerning for another CVA. Initial CT of the head is negative and patient is now more alert and responsive reports numbness and weakness have improved. Plan: 1) AMS - CVA vs TIA vs transient hypotension -Initial CT Head is negative -neurocheck Q4h -ASA 81mg po daily -Lipitor 40hs -Neuro consult with Dr. Reynolds, recommends continuation of ASA 81mg and lipitor 40mg -PT/OT eval 2) HTN -Lisinopril 5mg daily 3) DM -Levemir 20units HS + ISS;resume metformin 4) Dementia - donepezil 5mg po hs 5) GI/DVT ppx -Protonix -Lovenox 6) Tobacco use - nicotine patch 14mcg td daily while she is an inpatient. Awaiting possible TCU vs LTAC placement. Patient's daughter states she is not capable of taking care of her mother any longer. Assessment and plan discussed with medical attending. <Zheng CARRILLO,Marcia - Last Filed: 02/09/17 07:57> Objective - Vital Signs/Intake and Output Vital Signs (last 24 hours): Temp Pulse Resp BP Pulse Ox 98.3 F 68 18 141/65 97 02/09/17 07:42 02/09/17 07:42 02/09/17 07:42 02/09/17 07:42 02/09/17 07:42 Intake and Output: 02/09/17 02/09/17 06:59 18:59 Intake Total 427 Output Total 0 Balance 427 - Medications Medications: Current Medications Acetaminophen (Tylenol 325mg Tab) 650 mg PO Q6H PRN PRN Reason: Pain, moderate (4-7) Aspirin (Aspirin Chewable) 81 mg PO DAILY [facility] Last Admin: 02/08/17 09:41 Dose: 81 mg Atorvastatin Calcium (Lipitor) 40 mg PO HS [facility] Last Admin: 02/08/17 22:11 Dose: 40 mg Donepezil HCl (Aricept) 5 mg PO [facility] Last Admin: 02/08/17 22:09 Dose: 5 mg Enoxaparin Sodium (Lovenox) 40 mg SC DAILY [facility] PRN Reason: Protocol Last Admin: 02/08/17 09:41 Dose: 40 mg Hydralazine HCl (Apresoline) 10 mg IVP Q6H PRN PRN Reason: Systolic Blood Pressure Insulin Detemir (Levemir) 20 unit SC [facility] Last Admin: 02/08/17 22:10 Dose: 20 unit Insulin Human Regular (Humulin R Low) 0 units SC [facility] PRN Reason: Protocol Last Admin: 02/08/17 22:10 Dose: Not Given Lisinopril (Zestril) 5 mg PO DAILY [facility] Last Admin: 02/08/17 09:41 Dose: 5 mg Metformin HCl (Glucophage) 1,000 mg PO BID [facility] Last Admin: 02/08/17 17:06 Dose: 1,000 mg Nicotine (Nicoderm Cq) 1 patch TD DAILY [facility] Last Admin: 02/08/17 09:41 Dose: 1 patch - Labs Labs: PT 10.8 Seconds (9.9-11.8) 02/06/17 22:20 INR 1.00 (0.93-1.08) 02/06/17 22:20 APTT 20.5 Seconds (23.7-30.8) L 02/06/17 22:20 Attending/Attestation - Attestation I have personally seen and examined this patient.: Yes I have fully participated in the care of the patient.: Yes I have reviewed all pertinent clinical information, including history, physical exam and plan: Yes Notes (Text): 02/09/17 07:54 Patient was seen and examined with medical office secretary 66F with a PMHx HTN , DM, CVA (09/2016), tobacco use and Dementiawas admitted with Possible TIA, mental status is back to base line.Patient has advance dementia and family does not want to take her home, she is awaiting for placement.Case management is working on disposition.
[2017-02-08] MEDS: Insulin Detemir 100 units/ml Vial (Levemir) SC SCH (22:10)
[2017-02-09 07:39] LABS: ADD MANUAL DIFF? NO
[2017-02-09 07:57] LABS: BASO # 0.03 K/mm3 (0.0-2.0); BASO % 0.4 % (0.0-3.0); EOS # 0.1 (0.0-0.7); EOS % 1.8 % (1.5-5.0); GRAN # 2.89 (1.4-6.5); GRAN % 40.4 % (50.0-68.0); HEMATOCRIT 29.4 % (36.0-48.0); LYMPH # 3.6 (1.2-3.4); LYMPH % 50.7 % (22.0-35.0); MEAN CELL VOLUME 84.5 fL (80.0-105.0); MEAN CORPUSCULAR HEMOGLOBIN 28.7 pg (25.0-35.0); MEAN PLATELET VOLUME 10.7 fl (7.0-11.0); MONO # 0.5 (0.1-0.6); MONO % 6.7 % (1.0-6.0); PLATELET COUNT 258 10^3/uL (120.0-450.0); RED CELL DISTRIBUTION WIDTH 13.2 % (11.5-14.5); WHITE BLOOD COUNT 7.2 10^3/ul (4.5-11.0)
[2017-02-09] MEDS: Insulin Reg-LOW-Coverage SC SCH ×4 (08:00→21:29)
[2017-02-09] MEDS: Enoxaparin 40 mg Syringe SC SCH (09:41)
--- NOTE | 2017-02-09 13:36 | CP.PCM.DIS ---
Provider - Provider Date of Admission: 02/08/17 12:20 Attending physician: Marcia Calzada MD Primary care physician: Avelino Greenfield MD Consults: Dr. Brody Reynolds Time Spent in preparation of Discharge (in minutes): 35 Hospital Course - Lab Results Lab Results: Most Recent Lab Values WBC 7.2 10^3/ul (4.5-11.0) 02/09/17 07:00 RBC 3.48 10^6/uL (3.5-6.1) L 02/09/17 07:00 Hgb 10.0 gm/dL (12.0-16.0) L 02/09/17 07:00 Hct 29.4 % (36.0-48.0) L 02/09/17 07:00 MCV 84.5 fL (80.0-105.0) 02/09/17 07:00 MCH 28.7 pg (25.0-35.0) 02/09/17 07:00 MCHC 34.0 g/dl (31.0-37.0) 02/09/17 07:00 RDW 13.2 % (11.5-14.5) 02/09/17 07:00 Plt Count 258 10^3/uL (120.0-450.0) 02/09/17 07:00 MPV 10.7 fl (7.0-11.0) 02/09/17 07:00 Gran % 40.4 % (50.0-68.0) L 02/09/17 07:00 Lymph % (Auto) 50.7 % (22.0-35.0) H 02/09/17 07:00 Grady % (Auto) 6.7 % (1.0-6.0) H 02/09/17 07:00 Eos % (Auto) 1.8 % (1.5-5.0) 02/09/17 07:00 Baso % (Auto) 0.4 % (0.0-3.0) 02/09/17 07:00 Gran # 2.89 (1.4-6.5) 02/09/17 07:00 Lymph # 3.6 (1.2-3.4) H 02/09/17 07:00 Grady # 0.5 (0.1-0.6) 02/09/17 07:00 Eos # 0.1 (0.0-0.7) 02/09/17 07:00 Baso # 0.03 K/mm3 (0.0-2.0) 02/09/17 07:00 PT 10.8 Seconds (9.9-11.8) 02/06/17 22:20 INR 1.00 (0.93-1.08) 02/06/17 22:20 APTT 20.5 Seconds (23.7-30.8) L 02/06/17 22:20 Sodium 141 mmol/L (132-148) 02/07/17 06:45 Potassium 4.3 mmol/L (3.6-5.0) 02/07/17 06:45 Chloride 111 mmol/L (95-110) H 02/07/17 06:45 Carbon Dioxide 24 mmol/L (21-33) 02/07/17 06:45 Anion Gap 10 (10-20) 02/07/17 06:45 BUN 20 mg/dL (7-21) 02/07/17 06:45 Creatinine 0.7 mg/dL (0.5-1.4) 02/07/17 06:45 Est GFR ( Amer) > 60 02/07/17 06:45 Est GFR (Non-Af Amer) > 60 02/07/17 06:45 POC Glucose (mg/dL) 147 mg/dL (65-110) H 02/08/17 22:07 Random Glucose 242 mg/dL (70-110) H 02/07/17 06:45 Hemoglobin A1c 10.6 % (4.2-6.5) H 02/07/17 06:45 Calcium 9.0 mg/dL (8.4-10.5) 02/07/17 06:45 Total Bilirubin 0.3 mg/dL (0.2-1.3) 02/07/17 06:45 AST 30 U/L (15-39) 02/07/17 06:45 ALT 31 U/L (7-56) 02/07/17 06:45 Alkaline Phosphatase 79 U/L (38-133) 02/07/17 06:45 Troponin I < 0.01 ng/mL 02/06/17 22:20 Total Protein 7.3 g/dL (5.8-8.3) 02/07/17 06:45 Albumin 4.1 g/dL (3.0-4.8) 02/07/17 06:45 Globulin 3.1 gm/dL 02/07/17 06:45 Albumin/Globulin Ratio 1.3 (1.1-1.8) 02/07/17 06:45 Triglycerides 104 mg/dL (35-160) 02/06/17 22:20 Cholesterol 177 mg/dL (130-200) 02/06/17 22:20 LDL Cholesterol Direct 75 mg/dL (0-129) 02/06/17 22:20 HDL Cholesterol 80 mg/dL (29-60) H 02/06/17 22:20 Blood Type AB NEGATIVE 02/06/17 22:20 Blood Type Confirm AB NEGATIVE 02/07/17 06:45 Antibody Screen Negative 02/06/17 22:20 BBK History Checked No verified bt 02/06/17 22:20 - Hospital Course Hospital Course: HPI: 66 y/o female with a PMHx CVA (09/2016), Htn, DM, Dementia is brought in to the ED today via EMS due to a sudden change in her mental status witness by her family. Patient's daughter states they were all at the dinner table eating dinner when the patient suddenly stopped talking and appeared to have a blank stare on her face and fell off her chair on her side to the floor. She remained awake and did not lose conciousness however was not verbally responsive and had to have the food in her mouth removed by hand. Her daughter reports that she appeared "pale and yellow." EMS is reported to have found the patient with an adequate FSBS of 177 however blood pressure was 90/50mmHg and she received a 500cc IVF bolus en route to the ED. In the ED a Code stroke was called and her head CT returned negative for an acute CVA. tPA was not recommended as patient's symptoms resolved and she currently did not complain of having major defecits. The patient herself currently is complaining of left lower extremity weakness as well as numbness and tingling which is new, otherwise denies any complaints of shortness of breath, chest pain/heaviness, dizziness, light headedness, fever, chills, headache, nausea or vomiting. The patient's daughter states that the patient had stopped smoking for about 1 month after her last stroke, however began smoking again a few weeks after returning home from rehab. Telemetry, obs Syncope and TIA. 1) AMS - CVA vs TIA vs transient hypotension -Initial CT Head is negative -neurocheck Q4h -ASA 81mg po daily -Lipitor 40hs -Neuro consult with Dr. Reynolds, recs appreciated -F/u MRI -PT/OT eval 2) HTN -will monitor -Lisinopril 5mg daily 3) DM -Levemir 20units HS + ISS; hold metformin for now; FS ACHS -Resume metformin 4) Dementia - donepezil 5mg po hs 5) GI/DVT ppx -Protonix -Lovenox 6) Tobacco use - nicotine patch 14mcg td daily while she is an inpatient. Assessment and plan discussed with medical attending. MRI of Brain and will follow up Neurology consult. If MRI showed any new infarct, will switch aspirin to Plavix. 1) AMS - CVA vs TIA vs transient hypotension -Initial CT Head is negative -neurocheck Q4h -ASA 81mg po daily -Lipitor 40hs -Neuro consult with Dr. Reynolds, recommends continuation of ASA 81mg and lipitor 40mg -PT/OT eval 2) HTN -Lisinopril 5mg daily 3) DM -Levemir 20units HS + ISS;resume metformin 4) Dementia - donepezil 5mg po hs 5) GI/DVT ppx -Protonix -Lovenox 6) Tobacco use - nicotine patch 14mcg td daily while she is an inpatient. Awaiting possible TCU vs LTAC placement. Patient's daughter states she is not capable of taking care of her mother any longer. 66F with a PMHx HTN , DM, CVA (09/2016), tobacco use and Dementiawas admitted with Possible TIA, mental status is back to base line.Patient has advance dementia and family does not want to take her home, she is awaiting for placement.Case management is working on disposition. Discharge Exam - Head Exam Head Exam: ATRAUMATIC, NORMOCEPHALIC - Eye Exam Eye Exam: EOMI, Normal appearance - ENT Exam ENT Exam: Mucous Membranes Moist, Normal Exam - Respiratory Exam Respiratory Exam: Clear to PA & Lateral, NORMAL BREATHING PATTERN - Cardiovascular Exam Cardiovascular Exam: +S1, +S2. absent: Tachycardia - GI/Abdominal Exam GI & Abdominal Exam: Soft. absent: Tenderness - Exam External exam: absent: Ecchymosis, Erythema - Extremities Exam Extremities exam: normal inspection, pedal pulses present - Back Exam Back exam: absent: CVA tenderness (L), CVA tenderness (R) - Skin Skin Exam: Intact, Warm Discharge Plan - Follow Up Plan Condition: GOOD Disposition: REHAB FACILITY/REHAB UNIT Instructions: Syncope (DC), Syncope (GEN), Altered Mental Status (GEN) Referrals: Avelino Greenfield [Primary Care Provider] -
--- NOTE | 2017-02-09 16:11 | CP.PCM.PN ---
<Teresita Wilson - Last Filed: 02/09/17 16:14> Subjective - Date & Time of Evaluation Date of Evaluation: 02/09/17 Time of Evaluation: 08:55 - Subjective Subjective: Pt seen and evaluated at bedside. Afebrile overnight. Denies fever, SOB, chest pain, abd pain, N/V, urinary changes. Objective - Vital Signs/Intake and Output Vital Signs (last 24 hours): Temp Pulse Resp BP Pulse Ox 98.3 F 70 18 142/67 97 02/09/17 07:42 02/09/17 09:40 02/09/17 07:42 02/09/17 09:40 02/09/17 07:42 Intake and Output: 02/09/17 02/09/17 06:59 18:59 Intake Total 427 Output Total 0 Balance 427 - Medications Medications: Current Medications Acetaminophen (Tylenol 325mg Tab) 650 mg PO Q6H PRN PRN Reason: Pain, moderate (4-7) Aspirin (Aspirin Chewable) 81 mg PO DAILY [facility] Last Admin: 02/09/17 09:41 Dose: 81 mg Atorvastatin Calcium (Lipitor) 40 mg PO HS [facility] Last Admin: 02/08/17 22:11 Dose: 40 mg Donepezil HCl (Aricept) 5 mg PO HS [facility] Last Admin: 02/08/17 22:09 Dose: 5 mg Enoxaparin Sodium (Lovenox) 40 mg SC DAILY [facility] PRN Reason: Protocol Last Admin: 02/09/17 09:41 Dose: 40 mg Hydralazine HCl (Apresoline) 10 mg IVP Q6H PRN PRN Reason: Systolic Blood Pressure Insulin Detemir (Levemir) 20 unit SC HS [facility] Last Admin: 02/08/17 22:10 Dose: 20 unit Insulin Human Regular (Humulin R Low) 0 units SC [facility] PRN Reason: Protocol Last Admin: 02/09/17 12:12 Dose: 1 units Lisinopril (Zestril) 5 mg PO DAILY [facility] Last Admin: 02/09/17 09:40 Dose: 5 mg Metformin HCl (Glucophage) 1,000 mg PO BID [facility] Last Admin: 02/09/17 09:41 Dose: 1,000 mg Nicotine (Nicoderm Cq) 1 patch TD DAILY [facility] Last Admin: 02/09/17 09:40 Dose: 1 patch - Labs Labs: 02/09/17 07:00 PT 10.8 Seconds (9.9-11.8) 02/06/17 22:20 INR 1.00 (0.93-1.08) 02/06/17 22:20 APTT 20.5 Seconds (23.7-30.8) L 02/06/17 22:20 - Additional Findings Additional findings: - Head Exam Head Exam: ATRAUMATIC, NORMOCEPHALIC - Eye Exam Eye Exam: EOMI, Normal appearance - ENT Exam ENT Exam: Mucous Membranes Moist, Normal Exam - Respiratory Exam Respiratory Exam: Clear to PA & Lateral, NORMAL BREATHING PATTERN - Cardiovascular Exam Cardiovascular Exam: +S1, +S2. absent: Tachycardia - GI/Abdominal Exam GI & Abdominal Exam: Soft. absent: Tenderness - Exam External exam: absent: Ecchymosis, Erythema - Extremities Exam Extremities exam: normal inspection, pedal pulses present - Back Exam Back exam: absent: CVA tenderness (L), CVA tenderness (R) - Skin Skin Exam: Intact, Warm Assessment and Plan - Assessment and Plan (Free Text) Plan: 66F with a PMHx HTN , DM, CVA (09/2016), tobacco use and Dementiawas admitted with Possible TIA, mental status is back to base line. 1) AMS - CVA vs TIA vs transient hypotension -Initial CT Head is negative -neurocheck Q4h -ASA 81mg po daily -Lipitor 40hs -Neuro consult with Dr. Reynolds, recommends continuation of ASA 81mg and lipitor 40mg 2) HTN -Lisinopril 5mg daily 3) DM -Levemir 20units HS + ISS, metformin 4) Dementia - donepezil 5mg po hs 5) GI/DVT ppx -Protonix -Lovenox 6) Tobacco use - nicotine patch 14mcg td daily while she is an inpatient. 7) insomnia: ambien 5mg PO HS Awaiting TCU placement <Zheng CARRILLO,Marcia - Last Filed: 02/09/17 17:45> Objective - Vital Signs/Intake and Output Vital Signs (last 24 hours): Temp Pulse Resp BP Pulse Ox 97.9 F 81 18 104/60 96 02/09/17 16:44 02/09/17 16:44 02/09/17 16:44 02/09/17 16:44 02/09/17 16:44 Intake and Output: 02/09/17 02/09/17 06:59 18:59 Intake Total 427 Output Total 0 Balance 427 - Medications Medications: Current Medications Acetaminophen (Tylenol 325mg Tab) 650 mg PO Q6H PRN PRN Reason: Pain, moderate (4-7) Aspirin (Aspirin Chewable) 81 mg PO DAILY [facility] Last Admin: 02/09/17 09:41 Dose: 81 mg Atorvastatin Calcium (Lipitor) 40 mg PO HS [facility] Last Admin: 02/08/17 22:11 Dose: 40 mg Donepezil HCl (Aricept) 5 mg PO HS [facility] Last Admin: 02/08/17 22:09 Dose: 5 mg Enoxaparin Sodium (Lovenox) 40 mg SC DAILY [facility] PRN Reason: Protocol Last Admin: 02/09/17 09:41 Dose: 40 mg Hydralazine HCl (Apresoline) 10 mg IVP Q6H PRN PRN Reason: Systolic Blood Pressure Insulin Detemir (Levemir) 20 unit SC HS [facility] Last Admin: 02/08/17 22:10 Dose: 20 unit Insulin Human Regular (Humulin R Low) 0 units SC [facility] PRN Reason: Protocol Last Admin: 02/09/17 12:12 Dose: 1 units Lisinopril (Zestril) 5 mg PO DAILY [facility] Last Admin: 02/09/17 09:40 Dose: 5 mg Metformin HCl (Glucophage) 1,000 mg PO BID [facility] Last Admin: 02/09/17 09:41 Dose: 1,000 mg Nicotine (Nicoderm Cq) 1 patch TD DAILY [facility] Last Admin: 02/09/17 09:40 Dose: 1 patch Zolpidem Tartrate (Ambien) 5 mg PO HS PRN; Protocol PRN Reason: Insomnia - Labs Labs: 02/09/17 07:00 PT 10.8 Seconds (9.9-11.8) 02/06/17 22:20 INR 1.00 (0.93-1.08) 02/06/17 22:20 APTT 20.5 Seconds (23.7-30.8) L 02/06/17 22:20 Attending/Attestation - Attestation I have personally seen and examined this patient.: Yes I have fully participated in the care of the patient.: Yes I have reviewed all pertinent clinical information, including history, physical exam and plan: Yes Notes (Text): 02/09/17 17:44 Patient was seen and examined with medical secretary teacher .Agreed with resident assessment and plan. Patient is stable at base line, has advance dementia, she is awaiting for placement.Mental status is at base line. Management plan was discussed in detail with patient Education was provided.
--- NOTE | 2017-02-09 18:18 | PN ---
DATE: 02/09/2017 This is a 66-year-old female with past medical history of hypertension, diabetes, CVA and also has a history of dementia, and brief period of altered mental state. CT scan was done which shows CAT scan was negative. PHYSICAL EXAMINATION: HEENT: Normocephalic, atraumatic. NECK: Supple. NEUROLOGIC: Awake, oriented to self and place. No aphasia. Cranial nerves II through XII were test ed. Pupils reactive and EOM intact. Visual piedra full. No facial asymmetry. Tongue midline. Mo tor examination: Moves all the extremities equally. Tone normal. Deep tendon reflexes 1+. Both pl antars are downgoing. Sensory grossly intact. Cerebellar gait deferred. The patient is ambulating hallway. Waiting for TRCU. Continue present management. We will follow up. Patrick Reynolds MD cc: [id number] TT: 02/09/2017 18:17:13 Confirmation # [id number] Dictation # [id number] fabby
[2017-02-09] MEDS: Insulin Detemir 100 units/ml Vial (Levemir) SC SCH (21:32)
[2017-02-10 06:50] LABS: ADD MANUAL DIFF? NO
[2017-02-10 06:55] LABS: URINE BILIRUBIN NEGATIVE (NEGATIVE); URINE BLOOD TRACE-INTACT (NEGATIVE); URINE GLUCOSE (UA) NEGATIVE (NEGATIVE); URINE KETONE NEGATIVE (NEGATIVE); URINE LEUKOCYTE ESTERASE SMALL Leu/uL (NEGATIVE); URINE PROTEIN NEGATIVE mg/dL (<30 mg/dL); URINE UROBILINOGEN 0.2 E.U./dL (<1 E.U./dL)
[2017-02-10 07:01] LABS: URINE APPEARANCE SL CLOUDY (CLEAR); URINE COLOR YELLOW (YELLOW)
[2017-02-10 07:02] LABS: URINE BACTERIA TRACE (NEG); URINE EPITHELIAL CELLS 0 - 2 /hpf (0-5)
[2017-02-10 07:23] LABS: BASO # 0.02 K/mm3 (0.0-2.0); BASO % 0.3 % (0.0-3.0); EOS # 0.1 (0.0-0.7); EOS % 1.2 % (1.5-5.0); GRAN # 3.31 (1.4-6.5); GRAN % 43.9 % (50.0-68.0); HEMATOCRIT 30.3 % (36.0-48.0); LYMPH # 3.6 (1.2-3.4); LYMPH % 47.7 % (22.0-35.0); MEAN CELL VOLUME 84.6 fL (80.0-105.0); MEAN CORPUSCULAR HEMOGLOBIN 28.8 pg (25.0-35.0); MEAN PLATELET VOLUME 10.4 fl (7.0-11.0); MONO # 0.5 (0.1-0.6); MONO % 6.9 % (1.0-6.0); PLATELET COUNT 256 10^3/uL (120.0-450.0); RED CELL DISTRIBUTION WIDTH 13.1 % (11.5-14.5); WHITE BLOOD COUNT 7.5 10^3/ul (4.5-11.0)
[2017-02-10] MEDS: Insulin Reg-LOW-Coverage SC SCH ×4 (08:25→21:24)
--- NOTE | 2017-02-10 09:39 | CP.PCM.PN ---
<Teresita Wilson - Last Filed: 02/10/17 11:26> Subjective - Date & Time of Evaluation Date of Evaluation: 02/10/17 Time of Evaluation: 07:50 - Subjective Subjective: Pt seen and evaluated at bedside. Denies chest pain, n/v, abdominal pain and urinary changes. Afebrile overnight. Objective - Vital Signs/Intake and Output Vital Signs (last 24 hours): Temp Pulse Resp BP Pulse Ox 98.0 F 61 18 131/63 97 02/10/17 06:00 02/10/17 06:00 02/10/17 06:00 02/10/17 06:00 02/10/17 06:00 Intake and Output: 02/10/17 02/10/17 06:59 18:59 Intake Total 600 Balance 600 - Medications Medications: Current Medications Acetaminophen (Tylenol 325mg Tab) 650 mg PO Q6H PRN PRN Reason: Pain, moderate (4-7) Aspirin (Aspirin Chewable) 81 mg PO DAILY [facility] Last Admin: 02/09/17 09:41 Dose: 81 mg Atorvastatin Calcium (Lipitor) 40 mg PO HS [facility] Last Admin: 02/09/17 21:32 Dose: 40 mg Donepezil HCl (Aricept) 5 mg PO HS [facility] Last Admin: 02/09/17 21:28 Dose: 5 mg Enoxaparin Sodium (Lovenox) 40 mg SC DAILY [facility] PRN Reason: Protocol Last Admin: 02/09/17 09:41 Dose: 40 mg Hydralazine HCl (Apresoline) 10 mg IVP Q6H PRN PRN Reason: Systolic Blood Pressure Insulin Detemir (Levemir) 20 unit SC HS [facility] Last Admin: 02/09/17 21:32 Dose: 20 unit Insulin Human Regular (Humulin R Low) 0 units SC [facility] PRN Reason: Protocol Last Admin: 02/09/17 21:29 Dose: Not Given Lisinopril (Zestril) 5 mg PO DAILY [facility] Last Admin: 02/09/17 09:40 Dose: 5 mg Metformin HCl (Glucophage) 1,000 mg PO BID [facility] Last Admin: 02/09/17 18:18 Dose: 1,000 mg Nicotine (Nicoderm Cq) 1 patch TD DAILY [facility] Last Admin: 02/09/17 09:40 Dose: 1 patch Zolpidem Tartrate (Ambien) 5 mg PO HS PRN; Protocol PRN Reason: Insomnia - Labs Labs: 02/10/17 06:40 PT 10.8 Seconds (9.9-11.8) 02/06/17 22:20 INR 1.00 (0.93-1.08) 02/06/17 22:20 APTT 20.5 Seconds (23.7-30.8) L 02/06/17 22:20 - Constitutional Appears: Non-toxic, No Acute Distress - Head Exam Head Exam: ATRAUMATIC, NORMOCEPHALIC - Eye Exam Eye Exam: EOMI, Normal appearance - ENT Exam ENT Exam: Mucous Membranes Moist, Normal Exam - Respiratory Exam Respiratory Exam: Clear to Ausculation Bilateral, NORMAL BREATHING PATTERN - Cardiovascular Exam Cardiovascular Exam: +S1, +S2. absent: Bradycardia - GI/Abdominal Exam GI & Abdominal Exam: Soft. absent: Tenderness - Exam External exam: absent: Ecchymosis, Erythema - Extremities Exam Extremities Exam: Normal Capillary Refill. absent: Tenderness - Neurological Exam Neurological Exam: Alert, Awake Additional comments: oriented to self and place only - Skin Skin Exam: Intact, Normal Color Assessment and Plan - Assessment and Plan (Free Text) Plan: 66F with a PMHx HTN , DM, CVA (09/2016), tobacco use and Dementiawas admitted with Possible TIA, mental status is back to base line. 1) AMS - CVA vs TIA vs transient hypotension -Initial CT Head is negative -neurocheck Q4h -ASA 81mg po daily -Lipitor 40hs -Neuro consult with Dr. Reynolds, recommends continuation of ASA 81mg and lipitor 40mg 2) HTN -Lisinopril 5mg daily 3) DM -Levemir 20units HS + ISS, metformin 4) Dementia - donepezil 5mg po hs 5) GI/DVT ppx -Protonix -Lovenox 6) Tobacco use - nicotine patch 14mcg td daily while she is an inpatient. 7) insomnia: ambien 5mg PO HS Awaiting TCU placement <Zheng CARRILLO,Marcia - Last Filed: 02/10/17 11:51> Objective - Vital Signs/Intake and Output Vital Signs (last 24 hours): Temp Pulse Resp BP Pulse Ox 98.0 F 61 18 131/63 97 02/10/17 06:00 02/10/17 06:00 02/10/17 06:00 02/10/17 09:41 02/10/17 06:00 Intake and Output: 02/10/17 02/10/17 06:59 18:59 Intake Total 600 180 Balance 600 180 - Medications Medications: Current Medications Acetaminophen (Tylenol 325mg Tab) 650 mg PO Q6H PRN PRN Reason: Pain, moderate (4-7) Aspirin (Aspirin Chewable) 81 mg PO DAILY [facility] Last Admin: 02/10/17 09:42 Dose: 81 mg Atorvastatin Calcium (Lipitor) 40 mg PO HS [facility] Last Admin: 02/09/17 21:32 Dose: 40 mg Donepezil HCl (Aricept) 5 mg PO HS [facility] Last Admin: 02/09/17 21:28 Dose: 5 mg Enoxaparin Sodium (Lovenox) 40 mg SC DAILY [facility] PRN Reason: Protocol Last Admin: 02/10/17 09:42 Dose: 40 mg Hydralazine HCl (Apresoline) 10 mg IVP Q6H PRN PRN Reason: Systolic Blood Pressure Insulin Detemir (Levemir) 20 unit SC HS [facility] Last Admin: 02/09/17 21:32 Dose: 20 unit Insulin Human Regular (Humulin R Low) 0 units SC [facility] PRN Reason: Protocol Last Admin: 02/10/17 08:25 Dose: Not Given Lisinopril (Zestril) 5 mg PO DAILY [facility] Last Admin: 02/10/17 09:41 Dose: 5 mg Metformin HCl (Glucophage) 1,000 mg PO BID [facility] Last Admin: 02/10/17 09:42 Dose: 1,000 mg Nicotine (Nicoderm Cq) 1 patch TD DAILY [facility] Last Admin: 02/10/17 09:42 Dose: 1 patch Zolpidem Tartrate (Ambien) 5 mg PO HS PRN; Protocol PRN Reason: Insomnia - Labs Labs: 02/10/17 06:40 PT 10.8 Seconds (9.9-11.8) 02/06/17 22:20 INR 1.00 (0.93-1.08) 02/06/17 22:20 APTT 20.5 Seconds (23.7-30.8) L 02/06/17 22:20 Attending/Attestation - Attestation I have personally seen and examined this patient.: Yes I have fully participated in the care of the patient.: Yes I have reviewed all pertinent clinical information, including history, physical exam and plan: Yes Notes (Text): 02/10/17 11:50 Patient was seen and examined with medical support specialist .Agreed with resident assessment and plan. 66 F with PMH of HTN , DM, CVA (09/2016), tobacco use and Dementia, was admitted with Possible TIA, (Patient was found to be confused, unable to speak), was found to be hypotensive at that time, blood pressure improved with IV fluid bolus, CT head was negative, mental status is back to base line. Tele was negative for any arrhythmia. Patient was evaluated by Neurology, no further work up was needed. Patient has advance dementia and family does not want to take her home, she is awaiting for TCU placement. Management plan was discussed in detail with patient Education was provided.
[2017-02-10] MEDS: Enoxaparin 40 mg Syringe SC SCH (09:42)
[2017-02-10 17:12] VITALS: TEMP 98
[2017-02-10] MEDS: Insulin Detemir 100 units/ml Vial (Levemir) SC SCH (21:33)
[2017-02-11 06:54] LABS: ADD MANUAL DIFF? NO
[2017-02-11 07:13] LABS: BASO # 0.01 K/mm3 (0.0-2.0); BASO % 0.2 % (0.0-3.0); EOS # 0.1 (0.0-0.7); EOS % 1.5 % (1.5-5.0); GRAN # 3.01 (1.4-6.5); GRAN % 49.8 % (50.0-68.0); HEMATOCRIT 30.4 % (36.0-48.0); LYMPH # 2.6 (1.2-3.4); LYMPH % 42.9 % (22.0-35.0); MEAN CELL VOLUME 83.7 fL (80.0-105.0); MEAN CORPUSCULAR HEMOGLOBIN 27.8 pg (25.0-35.0); MEAN CORPUSCULAR HGB CONC 33.2 g/dl (31.0-37.0); MEAN PLATELET VOLUME 10.6 fl (7.0-11.0); MONO # 0.3 (0.1-0.6); MONO % 5.6 % (1.0-6.0); PLATELET COUNT 258 10^3/uL (120.0-450.0); RED CELL DISTRIBUTION WIDTH 13.1 % (11.5-14.5)
[2017-02-11 07:15] LABS: ALB/GLOB RATIO 1.2 (1.1-1.8); ALKALINE PHOSPHATASE 66 U/L (38-133); ALT/SGPT 33 U/L (7-56); AST/SGOT 28 U/L (15-39); BILIRUBIN,TOTAL 0.3 mg/dL (0.2-1.3); BLOOD UREA NITROGEN 21 mg/dL (7-21); CALCIUM 9.4 mg/dL (8.4-10.5); CARBON DIOXIDE 28 mmol/L (21-33); CHLORIDE 109 mmol/L (98-107); GFR AFRICAN-AMERICAN > 60; GLUCOSE,RANDOM 54 mg/dL (70-110); POTASSIUM 4.3 mmol/L (3.6-5.0); SODIUM 145 mmol/L (132-148); TOTAL PROTEIN 7.2 g/dL (5.8-8.3)
[2017-02-11 07:18] VITALS: PULSE 65; RESP 18; O2SAT 99
[2017-02-11] MEDS: Insulin Reg-LOW-Coverage SC SCH ×3 (09:08→16:21)
[2017-02-11] MEDS: Enoxaparin 40 mg Syringe SC SCH (10:25)
[2017-02-11 10:29] VITALS: BP 166/78
[2017-02-11] MEDS ORDERED: Insulin Detemir 100 units/ml Vial (Levemir) SC SCH (12:44)
--- NOTE | 2017-02-11 14:32 | CP.PCM.DIS ---
<Teresita Wilson - Last Filed: 02/11/17 14:32> Provider - Provider Date of Admission: 02/08/17 12:20 Attending physician: Yelena Rojas MD Primary care physician: Avelino Greenfield MD Consults: Dr. Brody Reynolds Time Spent in preparation of Discharge (in minutes): 35 Hospital Course - Lab Results Lab Results: Micro Results 02/10/17 06:00 Urine,Clean Catch Urine Culture - Final No Growth (<1,000 CFU/ML) Most Recent Lab Values WBC 6.0 10^3/ul (4.5-11.0) 02/11/17 06:30 RBC 3.63 10^6/uL (3.5-6.1) 02/11/17 06:30 Hgb 10.1 gm/dL (12.0-16.0) L 02/11/17 06:30 Hct 30.4 % (36.0-48.0) L 02/11/17 06:30 MCV 83.7 fL (80.0-105.0) 02/11/17 06:30 MCH 27.8 pg (25.0-35.0) 02/11/17 06:30 MCHC 33.2 g/dl (31.0-37.0) 02/11/17 06:30 RDW 13.1 % (11.5-14.5) 02/11/17 06:30 Plt Count 258 10^3/uL (120.0-450.0) 02/11/17 06:30 MPV 10.6 fl (7.0-11.0) 02/11/17 06:30 Gran % 49.8 % (50.0-68.0) L 02/11/17 06:30 Lymph % (Auto) 42.9 % (22.0-35.0) H 02/11/17 06:30 [place] % (Auto) 5.6 % (1.0-6.0) 02/11/17 06:30 Eos % (Auto) 1.5 % (1.5-5.0) 02/11/17 06:30 Baso % (Auto) 0.2 % (0.0-3.0) 02/11/17 06:30 Gran # 3.01 (1.4-6.5) 02/11/17 06:30 Lymph # 2.6 (1.2-3.4) 02/11/17 06:30 [place] # 0.3 (0.1-0.6) 02/11/17 06:30 Eos # 0.1 (0.0-0.7) 02/11/17 06:30 Baso # 0.01 K/mm3 (0.0-2.0) 02/11/17 06:30 PT 10.8 Seconds (9.9-11.8) 02/06/17 22:20 INR 1.00 (0.93-1.08) 02/06/17 22:20 APTT 20.5 Seconds (23.7-30.8) L 02/06/17 22:20 Sodium 145 mmol/L (132-148) 02/11/17 06:30 Potassium 4.3 mmol/L (3.6-5.0) 02/11/17 06:30 Chloride 109 mmol/L (98-107) H 02/11/17 06:30 Carbon Dioxide 28 mmol/L (21-33) 02/11/17 06:30 Anion Gap 12 (10-20) 02/11/17 06:30 BUN 21 mg/dL (7-21) 02/11/17 06:30 Creatinine 0.9 mg/dL (0.5-1.4) 02/11/17 06:30 Est GFR ( Amer) > 60 02/11/17 06:30 Est GFR (Non-Af Amer) > 60 02/11/17 06:30 POC Glucose (mg/dL) 159 mg/dL (65-110) H 02/10/17 11:31 Random Glucose 54 mg/dL (70-110) L 02/11/17 06:30 Hemoglobin A1c 10.6 % (4.2-6.5) H 02/07/17 06:45 Calcium 9.4 mg/dL (8.4-10.5) 02/11/17 06:30 Total Bilirubin 0.3 mg/dL (0.2-1.3) 02/11/17 06:30 AST 28 U/L (15-39) 02/11/17 06:30 ALT 33 U/L (7-56) 02/11/17 06:30 Alkaline Phosphatase 66 U/L (38-133) 02/11/17 06:30 Troponin I < 0.01 ng/mL 02/06/17 22:20 Total Protein 7.2 g/dL (5.8-8.3) 02/11/17 06:30 Albumin 3.9 g/dL (3.0-4.8) 02/11/17 06:30 Globulin 3.3 gm/dL 02/11/17 06:30 Albumin/Globulin Ratio 1.2 (1.1-1.8) 02/11/17 06:30 Triglycerides 104 mg/dL (35-160) 02/06/17 22:20 Cholesterol 177 mg/dL (130-200) 02/06/17 22:20 LDL Cholesterol Direct 75 mg/dL (0-129) 02/06/17 22:20 HDL Cholesterol 80 mg/dL (29-60) H 02/06/17 22:20 Urine Color Yellow (YELLOW) 02/10/17 06:00 Urine Appearance Sl cloudy (CLEAR) 02/10/17 06:00 Urine pH 6.0 (4.7-8.0) 02/10/17 06:00 Ur Specific [place] <= 1.005 (1.005-1.035) 02/10/17 06:00 Urine Protein Negative mg/dL (<30 mg/dL) 02/10/17 06:00 Urine Glucose (UA) Negative mg/dL (NEGATIVE) 02/10/17 06:00 Urine Ketones Negative mg/dL (NEGATIVE) 02/10/17 06:00 Urine Blood Trace-intact (NEGATIVE) H 02/10/17 06:00 Urine Nitrate Negative (NEGATIVE) 02/10/17 06:00 Urine Bilirubin Negative (NEGATIVE) 02/10/17 06:00 Urine Urobilinogen 0.2 E.U./dL (<1 E.U./dL) 02/10/17 06:00 Ur Leukocyte Esterase Small Kae/uL (NEGATIVE) H 02/10/17 06:00 Urine RBC 1 - 3 /hpf (0-2) 02/10/17 06:00 Urine WBC 1 - 3 /hpf (0-6) 02/10/17 06:00 Ur Epithelial Cells 0 - 2 /hpf (0-5) 02/10/17 06:00 Urine Bacteria Trace (NEG) 02/10/17 06:00 Blood Type AB NEGATIVE 02/06/17 22:20 Blood Type Confirm AB NEGATIVE 02/07/17 06:45 Antibody Screen Negative 02/06/17 22:20 BBK History Checked No verified bt 02/06/17 22:20 Discharge Exam - Additional Findings Additional findings: - Constitutional Appears: Non-toxic, No Acute Distress - Head Exam Head Exam: ATRAUMATIC, NORMOCEPHALIC - Eye Exam Eye Exam: EOMI, Normal appearance - ENT Exam ENT Exam: Mucous Membranes Moist, Normal Exam - Respiratory Exam Respiratory Exam: Clear to Ausculation Bilateral, NORMAL BREATHING PATTERN - Cardiovascular Exam Cardiovascular Exam: +S1, +S2. absent: tachycardia - GI/Abdominal Exam GI & Abdominal Exam: Soft, Non-tender - Exam External exam: absent: Ecchymosis, Erythema - Extremities Exam Extremities Exam: Normal Capillary Refill. absent: Tenderness - Neurological Exam Neurological Exam: Alert, Awake - Skin Skin Exam: Intact, Normal Color Discharge Plan - Follow Up Plan Condition: GOOD Disposition: REHAB FACILITY/REHAB UNIT Instructions: Syncope (DC), Syncope (GEN), Altered Mental Status (GEN) Referrals: Avelino Greenfield [Primary Care Provider] - <Yelena Rojas - Last Filed: 02/11/17 19:58> Provider - Provider Date of Admission: 02/08/17 12:20 Attending physician: Yelena Rojas MD Primary care physician: Avelino Greenfield MD Hospital Course - Lab Results Lab Results: Micro Results 02/10/17 06:00 Urine,Clean Catch Urine Culture - Final No Growth (<1,000 CFU/ML) Most Recent Lab Values WBC 6.0 10^3/ul (4.5-11.0) 02/11/17 06:30 RBC 3.63 10^6/uL (3.5-6.1) 02/11/17 06:30 Hgb 10.1 gm/dL (12.0-16.0) L 02/11/17 06:30 Hct 30.4 % (36.0-48.0) L 02/11/17 06:30 MCV 83.7 fL (80.0-105.0) 02/11/17 06:30 MCH 27.8 pg (25.0-35.0) 02/11/17 06:30 MCHC 33.2 g/dl (31.0-37.0) 02/11/17 06:30 RDW 13.1 % (11.5-14.5) 02/11/17 06:30 Plt Count 258 10^3/uL (120.0-450.0) 02/11/17 06:30 MPV 10.6 fl (7.0-11.0) 02/11/17 06:30 Gran % 49.8 % (50.0-68.0) L 02/11/17 06:30 Lymph % (Auto) 42.9 % (22.0-35.0) H 02/11/17 06:30 [place] % (Auto) 5.6 % (1.0-6.0) 02/11/17 06:30 Eos % (Auto) 1.5 % (1.5-5.0) 02/11/17 06:30 Baso % (Auto) 0.2 % (0.0-3.0) 02/11/17 06:30 Gran # 3.01 (1.4-6.5) 02/11/17 06:30 Lymph # 2.6 (1.2-3.4) 02/11/17 06:30 [place] # 0.3 (0.1-0.6) 02/11/17 06:30 Eos # 0.1 (0.0-0.7) 02/11/17 06:30 Baso # 0.01 K/mm3 (0.0-2.0) 02/11/17 06:30 PT 10.8 Seconds (9.9-11.8) 02/06/17 22:20 INR 1.00 (0.93-1.08) 02/06/17 22:20 APTT 20.5 Seconds (23.7-30.8) L 02/06/17 22:20 Sodium 145 mmol/L (132-148) 02/11/17 06:30 Potassium 4.3 mmol/L (3.6-5.0) 02/11/17 06:30 Chloride 109 mmol/L (98-107) H 02/11/17 06:30 Carbon Dioxide 28 mmol/L (21-33) 02/11/17 06:30 Anion Gap 12 (10-20) 02/11/17 06:30 BUN 21 mg/dL (7-21) 02/11/17 06:30 Creatinine 0.9 mg/dL (0.5-1.4) 02/11/17 06:30 Est GFR ( Amer) > 60 02/11/17 06:30 Est GFR (Non-Af Amer) > 60 02/11/17 06:30 POC Glucose (mg/dL) 159 mg/dL (65-110) H 02/10/17 11:31 Random Glucose 54 mg/dL (70-110) L 02/11/17 06:30 Hemoglobin A1c 10.6 % (4.2-6.5) H 02/07/17 06:45 Calcium 9.4 mg/dL (8.4-10.5) 02/11/17 06:30 Total Bilirubin 0.3 mg/dL (0.2-1.3) 02/11/17 06:30 AST 28 U/L (15-39) 02/11/17 06:30 ALT 33 U/L (7-56) 02/11/17 06:30 Alkaline Phosphatase 66 U/L (38-133) 02/11/17 06:30 Troponin I < 0.01 ng/mL 02/06/17 22:20 Total Protein 7.2 g/dL (5.8-8.3) 02/11/17 06:30 Albumin 3.9 g/dL (3.0-4.8) 02/11/17 06:30 Globulin 3.3 gm/dL 02/11/17 06:30 Albumin/Globulin Ratio 1.2 (1.1-1.8) 02/11/17 06:30 Triglycerides 104 mg/dL (35-160) 02/06/17 22:20 Cholesterol 177 mg/dL (130-200) 02/06/17 22:20 LDL Cholesterol Direct 75 mg/dL (0-129) 02/06/17 22:20 HDL Cholesterol 80 mg/dL (29-60) H 02/06/17 22:20 Urine Color Yellow (YELLOW) 02/10/17 06:00 Urine Appearance Sl cloudy (CLEAR) 02/10/17 06:00 Urine pH 6.0 (4.7-8.0) 02/10/17 06:00 Ur Specific [place] <= 1.005 (1.005-1.035) 02/10/17 06:00 Urine Protein Negative mg/dL (<30 mg/dL) 02/10/17 06:00 Urine Glucose (UA) Negative mg/dL (NEGATIVE) 02/10/17 06:00 Urine Ketones Negative mg/dL (NEGATIVE) 02/10/17 06:00 Urine Blood Trace-intact (NEGATIVE) H 02/10/17 06:00 Urine Nitrate Negative (NEGATIVE) 02/10/17 06:00 Urine Bilirubin Negative (NEGATIVE) 02/10/17 06:00 Urine Urobilinogen 0.2 E.U./dL (<1 E.U./dL) 02/10/17 06:00 Ur Leukocyte Esterase Small Kae/uL (NEGATIVE) H 02/10/17 06:00 Urine RBC 1 - 3 /hpf (0-2) 02/10/17 06:00 Urine WBC 1 - 3 /hpf (0-6) 02/10/17 06:00 Ur Epithelial Cells 0 - 2 /hpf (0-5) 02/10/17 06:00 Urine Bacteria Trace (NEG) 02/10/17 06:00 Blood Type AB NEGATIVE 02/06/17 22:20 Blood Type Confirm AB NEGATIVE 02/07/17 06:45 Antibody Screen Negative 02/06/17 22:20 BBK History Checked No verified bt 02/06/17 22:20 Attending/Attestation - Attestation I have personally seen and examined this patient.: Yes I have fully participated in the care of the patient.: Yes I have reviewed all pertinent clinical information, including history, physical exam and plan: Yes Notes (Text): 02/11/17 19:57 Patient seen and examined independently at the bedside along with the resident. Labs, vitals and notes reviewed. Discussed and agree with the plan of care outlined by the resident post discharge to the TCU
--- NOTE | 2017-02-13 07:23 | CON ---
DATE: 02/12/2017 CHIEF COMPLAINT: Followup for altered mental status. Currently in TCU. HISTORY OF PRESENT ILLNESS: This is a 66-year-old woman with a history of CVA in 09/2016, hypertensio n, dementia and type 2 diabetes mellitus who was admitted initially to [facility] 02/07/20 17 for sudden change in mental status, which was witnessed by the family where she was eating dinner at the dinner table and when she started talking, had a blank stare and fell off a chair, but did not lose any consciousness, but had food in her mouth and she appeared kind of pale and her blood pressu re at that time was 90/50 and received a 500 mL IV bolus en route to the hospital. CAT scan showed n o acute intracranial abnormalities, just an old right lacunar basis infarct. Currently, she was hydr ated and her electrolytes were corrected throughout her hospital course. She had an A1c of 10.6 and her diabetic regimen was managed. She is currently in TCU for underlying physical rehabilitation. S he is following commands. PAST MEDICAL HISTORY: Type 2 diabetes mellitus, history of hypertension, CVA on 09/2016, history of t obacco use. SOCIAL HISTORY: Smokes less than 10 cigarettes per day. No illicit drug use or alcohol abuse. REVIEW OF SYSTEMS: A 14-point review of systems was negative except for the HPI. ALLERGIES: No known drug allergies. CURRENT MEDICATIONS: Reviewed via nurses' reconciliation sheet. PHYSICAL EXAMINATION: VITAL SIGNS: Temperature 98, pulse rate of 71, blood pressure 125/54, respiratory rate of 15, oxygen saturation of 96% on room air. GENERAL: The patient is sitting up in bed in no acute distress. HEENT: Atraumatic, normocephalic. PERRLA. Extraocular muscles intact. NECK: Supple, no JVD, no adenopathy noted. LUNGS: Clear to auscultation. No adventitious sounds. HEART: S1, S2, normal rate and rhythm. No murmurs, rubs, or gallops. ABDOMEN: Soft, nontender, nondistended. Bowel sounds present. EXTREMITIES: No clubbing, no cyanosis. Peripheral pulses 2+ felt bilaterally. NEUROLOGIC: The patient is alert, oriented to person, place, month and year. Speech is fluent, with out any errors. Cranial nerves II through XII are intact. MOTOR: Slight increased tone throughout. Moves all extremities equally. No pronator drift seen. SENSORY: Decreased light touch and pinprick up to the calves bilaterally. Decreased vibration in th e toes. Proprioception intact bilaterally. DTRs 2+ throughout, 1 at both knees and 0 at the ankles. She does have evidence of cognitive impairment and poor attention span, poor recall and slow though t process from a mental status perspective, but otherwise gait is deferred for now. LABORATORY DATA: Sodium is 141, potassium 5.4, chloride of 106, carbon dioxide 28, BUN of 25, creati nine , glucose of 177. ASSESSMENT AND PLAN: This is a 66-year-old woman with a past medical history of hypertension, type 2 diabetes mellitus, history of cerebrovascular accident earlier this year in 09/2016, tobacco use and dementia who had a brief period of altered mental status on 02/06/2017 and was brought to the hospital and found to have low systolic and diastolic blood pressure of 90/50 mmHg and given IV fluid boluses and was transfused and did well. Her electrolytes were maintained. She is currently in TCU for zaria abilitation. Her brief period of altered mental status was secondary to transient cerebral hypoperfu sivan to the brain. Her gait instability is secondary to diabetic peripheral neuropathy from uncontro lled diabetes given an A1c of 10.6, and she does have moderate cognitive impairment from underlying g eneral medical conditions. At this time, recommend: 1. Aspirin 81 mg and Lipitor 40 mg p.o. daily for stroke prevention. 2. Diabetic education needs to be given. Is to keep her blood sugars between 140-180 and better andre betic control given her uncontrolled A1c of 10.6. 3. Monitor electrolytes. She has hyperkalemia today. Need to monitor and replace or correct. 4. She is to continue with physical and occupational therapy; currently in rehabilitation and contin ue with current present localized. No further neurological workup at this time. Thank you, will sign off. Arian Reynolds MD cc: [phone] TT: 02/12/2017 16:53:36 Confirmation # [id number] Dictation # [id number]
--- NOTE | 2017-02-17 09:24 | PQF GENQUE ---
02/17/17 Dr. Brody Rojas, Per [employer] income auditor, please clarify principal diagnosis--TIA? Hypotension? Other? Thank you. Clarification of your documentation is requested to better reflect the severity of illness and intensity of treatment of your patient. Indicators present [] Specify: [] [] Specify: [] [] Specify: [] [] Specify: [] Location in the medical record that reflects the above clinical findings: [] Treatment Provided: [] PHYSICIAN'S RESPONSE Transient Hypotension would be the discharge diagnosis based upon review of her vitals, resolution of symptoms and exam. Neurology evaluation is consistent with this assessment and diagnosis as well. Based on your medical judgment of the clinical indicators outlined above please clarify the following: [] Practitioner response [] If unable to determine, please check the box, sign and date. Present On Admission (POA) Indicator: [] Present at the time of admission [] Not present at the time of admission [] Clinically Undetermined In responding to this query, please exercise your independent professional judgment. The fact that a question is asked does not imply that any particular answer is desired or expected. Thank you for your clarification on this documentation. If you have any questions please call:[ ] * Thank you, [ ] manager wound care [facility]
== END 2017-02-11 16:30 | DRG 315 ==
LOC: ED 21:37 → UNDOADMOB 22:47 → ERH 22:47 → 2RSO 02-07 00:50 → ERH 02-07 00:50 → INTOOBSV 02-08 11:20 → OBSVTOIN 02-08 11:20 → 2RSO 02-08 12:20 → 3RNO 02-08 18:40
PROVIDERS: ADMIT Internal Medicine; ATTEND Internal Medicine
DX: I95.9 Hypotension, unspecified (principal); G45.9 Transient cerebral ischemic attack, unspecified; E11.42 Type 2 diabetes mellitus with diabetic polyneuropathy; F03.90 Unspecified dementia, unspecified severity, without behavioral disturbance, psychotic disturbance, mood disturbance, and anxiety; E11.65 Type 2 diabetes mellitus with hyperglycemia; E87.5 Hyperkalemia; W07.XXXA Fall from chair, initial encounter; R41.82 Altered mental status, unspecified; E78.5 Hyperlipidemia, unspecified; F17.210 Nicotine dependence, cigarettes, uncomplicated; I10 Essential (primary) hypertension; Z82.49 Family history of ischemic heart disease and other diseases of the circulatory system; Z83.3 Family history of diabetes mellitus; Z86.73 Personal history of transient ischemic attack (TIA), and cerebral infarction without residual deficits; Z87.440 Personal history of urinary (tract) infections; Z95.5 Presence of coronary angioplasty implant and graft; M19.90 Unspecified osteoarthritis, unspecified site; R40.2412 Glasgow coma scale score 13-15, at arrival to emergency department; Y92.001 Dining room of unspecified non-institutional (private) residence as the place of occurrence of the external cause; D64.9 Anemia, unspecified; G47.00 Insomnia, unspecified

== ENCOUNTER 2017-02-11 16:33 | Inpatient (IN) | payer OTHER, MEDICAID ==
[2017-02-11] MEDS ORDERED: Pneumococcal 23-Valent Vaccine IM ONE (18:02)
[2017-02-11 18:03] VITALS: BMI 28.6
[2017-02-11] MEDS: Insulin Reg-LOW-Coverage SC SCH (21:54)
[2017-02-11] MEDS: Insulin Detemir 100 units/ml Vial (Levemir) SC SCH (21:55)
[2017-02-12] MEDS: Enoxaparin 40 mg Syringe SC SCH (06:11)
[2017-02-12] MEDS: Insulin Reg-LOW-Coverage SC SCH ×5 (07:36→21:56)
[2017-02-12 08:32] LABS: ADD MANUAL DIFF? NO
[2017-02-12 08:37] LABS: BASO # 0.05 K/mm3 (0.0-2.0); BASO % 0.6 % (0.0-3.0); EOS # 0.1 (0.0-0.7); EOS % 1.7 % (1.5-5.0); GRAN # 3.99 (1.4-6.5); GRAN % 50.9 % (50.0-68.0); LYMPH # 3.2 (1.2-3.4); LYMPH % 41.3 % (22.0-35.0); MEAN CELL VOLUME 84.5 fL (80.0-105.0); MEAN CORPUSCULAR HEMOGLOBIN 28.6 pg (25.0-35.0); MEAN CORPUSCULAR HGB CONC 33.9 g/dl (31.0-37.0); MEAN PLATELET VOLUME 10.9 fl (7.0-11.0); MONO # 0.4 (0.1-0.6); MONO % 5.5 % (1.0-6.0); PLATELET COUNT 264 10^3/uL (120.0-450.0); RED CELL DISTRIBUTION WIDTH 13.1 % (11.5-14.5); WHITE BLOOD COUNT 7.8 10^3/ul (4.5-11.0)
[2017-02-12 08:48] LABS: ALB/GLOB RATIO 1.3 (1.1-1.8); ALKALINE PHOSPHATASE 88 U/L (38-133); ALT/SGPT 31 U/L (7-56); AST/SGOT 29 U/L (15-39); BILIRUBIN,TOTAL 0.5 mg/dL (0.2-1.3); BLOOD UREA NITROGEN 25 mg/dL (7-21); CALCIUM 9.6 mg/dL (8.4-10.5); CARBON DIOXIDE 28 mmol/L (21-33); CHLORIDE 106 mmol/L (98-107); GFR AFRICAN-AMERICAN > 60; GLUCOSE,RANDOM 177 mg/dL (70-110); POTASSIUM 5.4 mmol/L (3.6-5.0); SODIUM 141 mmol/L (132-148); TOTAL PROTEIN 7.7 g/dL (5.8-8.3)
[2017-02-12] MEDS ORDERED: Sod Polystyrene Sulf 15 gm/60 ml Oral Susp PO ONE (09:44)
--- NOTE | 2017-02-12 21:04 | CP.PCM.HP ---
<Teresita Wilson - Last Filed: 02/12/17 21:21> History of Present Illness - History of Present Illness History of Present Illness: 66 yo F w/PMHx history of HTN, DM, CVA, dementia, presents from discharge from [facility] admission for AMS, TIA and syncope, for the purpose of rehabilitation. Pt denies chest pain, abdominal pain, n/v/fever/chills, hematuria, dysuria, and diarrhea. PMHx: HTN, DM, CVA, dementia PSHx: questionable cardiac cath SocialHx: 2 ppd for over 50yrs; denies etoh use; denies illicit drug use, lives at home with her daughter and her family Allergies: NKDA HomeMeds: Levemir 20units SQ hs, Metformin 1000mg po bid, ASA 81mg po daily, Donepezil - dose unknown, Zestril 5mg po daily, Lipitor 40mg po hs, Tylenol prn , Ferrex pills Fam Hx: DM, Htn, CAD in multiple family members Present on Admission - Present on Admission Any Indicators Present on Admission: No Review of Systems - Review of Systems All systems: reviewed and no additional remarkable complaints except - Constitutional Constitutional: absent: Chills, Fever - Cardiovascular Cardiovascular: absent: Chest Pain, Dyspnea - Respiratory Respiratory: absent: Cough, Dyspnea - Gastrointestinal Gastrointestinal: absent: Abdominal Pain, Diarrhea - Genitourinary Genitourinary: absent: Hematuria, Pyuria Past Patient History - Infectious Disease Hx of Infectious Diseases: None - Past Medical History & Family History Past Medical History?: Yes - Past Social History Smoking Status: Heavy Smoker > 10 Cigarettes Daily - CARDIAC Hx Cardiac Disorders: Yes Hx Congestive Heart Failure: No Hx Hypercholesterolemia: Yes Hx Hypertension: Yes - PULMONARY Hx Chronic Obstructive Pulmonary Disease (COPD): No Hx Pneumonia: No - NEUROLOGICAL HX Cerebrovascular Accident: Yes - HEENT Hx HEENT Problems: No - RENAL Hx Renal Failure: No - ENDOCRINE/METABOLIC Hx Diabetes Mellitus Type 1: No Hx Diabetes Mellitus Type 2: Yes Hx Hypothyroidism: No - HEMATOLOGICAL/ONCOLOGICAL Hx Cancer: No - INTEGUMENTARY Hx Dermatological Problems: No - MUSCULOSKELETAL/RHEUMATOLOGICAL Hx Arthritis: Yes Hx Rheumatoid Arthritis: No - GASTROINTESTINAL Hx Gastroesophageal Reflux: No - GENITOURINARY/GYNECOLOGICAL Hx Reproductive Disorders: No - PSYCHIATRIC Hx Psychophysiologic Disorder: No Hx Substance Use: No - SURGICAL HISTORY Hx Cardiac Catheterization: Yes (MANY MANY YEARS AGO) Hx Coronary Stent: Yes (DAUGHTER THINKS SO , BUT NOT SURE) - ANESTHESIA Hx Anesthesia: No (IV SEDATION ONLY) Hx Anesthesia Reactions: No Hx Malignant Hyperthermia: No Meds Allergies/Adverse Reactions: Allergies Allergy/AdvReac Type Severity Reaction Status Date / Time No Known Allergies Allergy Verified 06/29/16 06:57 Physical Exam - Constitutional Appears: Non-toxic, No Acute Distress - Head Exam Head Exam: ATRAUMATIC, NORMOCEPHALIC - Eye Exam Eye Exam: EOMI, Normal appearance - ENT Exam ENT Exam: Mucous Membranes Moist, Normal Exam - Respiratory Exam Respiratory Exam: Clear to Auscultation Bilateral, NORMAL BREATHING PATTERN - Cardiovascular Exam Cardiovascular Exam: +S1, +S2. absent: Bradycardia - GI/Abdominal Exam GI & Abdominal Exam: Soft. absent: Tenderness - Exam External exam: absent: Ecchymosis, Erythema - Extremities Exam Extremities exam: Positive for: normal capillary refill, pedal pulses present - Back Exam Back exam: absent: CVA tenderness (L), CVA tenderness (R) - Neurological Exam Neurological exam: Alert - Skin Skin Exam: Intact, Normal Color Results - Vital Signs Recent Vital Signs: Last Vital Signs Temp 98 F 02/11/17 17:52 Pulse 65 02/12/17 11:00 Resp 15 02/11/17 17:52 BP 161/73 H 02/12/17 11:00 Pulse Ox - Labs Result Diagrams: 02/12/17 08:31 02/12/17 08:31 Labs: Laboratory Results - last 24 hr 02/11/17 02/12/17 02/12/17 21:42 08:31 08:31 WBC 7.8 D RBC 3.67 Hgb 10.5 L Hct 31.0 L MCV 84.5 MCH 28.6 MCHC 33.9 RDW 13.1 Plt Count 264 MPV 10.9 Gran % 50.9 Lymph % (Auto) 41.3 H Stearns % (Auto) 5.5 Eos % (Auto) 1.7 Baso % (Auto) 0.6 Gran # 3.99 Lymph # 3.2 Stearns # 0.4 Eos # 0.1 Baso # 0.05 Sodium 141 Potassium 5.4 H Chloride 106 Carbon Dioxide 28 Anion Gap 12 BUN 25 H Creatinine 1.0 Est GFR ( Amer) > 60 Est GFR (Non-Af Amer) 55 POC Glucose (mg/dL) 125 H Random Glucose 177 H Calcium 9.6 Total Bilirubin 0.5 AST 29 ALT 31 Alkaline Phosphatase 88 Total Protein 7.7 Albumin 4.3 Globulin 3.4 Albumin/Globulin Ratio 1.3 02/12/17 11:34 WBC RBC Hgb Hct MCV MCH MCHC RDW Plt Count MPV Gran % Lymph % (Auto) Stearns % (Auto) Eos % (Auto) Baso % (Auto) Gran # Lymph # Stearns # Eos # Baso # Sodium Potassium Chloride Carbon Dioxide Anion Gap BUN Creatinine Est GFR ( Amer) Est GFR (Non-Af Amer) POC Glucose (mg/dL) 199 H Random Glucose Calcium Total Bilirubin AST ALT Alkaline Phosphatase Total Protein Albumin Globulin Albumin/Globulin Ratio Assessment & Plan - Assessment and Plan (Free Text) Plan: 66 yo F w/PMHx history of HTN, DM, CVA, dementia, presents from discharge from [facility] admission for AMS and syncope, for the purpose of rehabilitation: TIA-ASA 81mg po daily, Lipitor 40hs HTN-Lisinopril 5mg daily DM -Levemir 15 units HS + ISS, metformin Tobacco use - nicotine patch 14mcg td daily insomnia: ambien 5mg PO HS Dementia - donepezil 5mg po hs GI/DVT ppx -Protonix, Lovenox -Lovenox <Yelena Rojas - Last Filed: 02/13/17 18:02> Results - Vital Signs Recent Vital Signs: Last Vital Signs Temp 98 F 02/11/17 17:52 Pulse 62 02/13/17 10:29 Resp 15 02/11/17 17:52 BP 133/53 L 02/13/17 10:29 Pulse Ox - Labs Result Diagrams: 02/13/17 06:30 02/13/17 07:45 Labs: Laboratory Results - last 24 hr 02/12/17 02/12/17 02/12/17 06:47 16:50 21:31 WBC RBC Hgb Hct MCV MCH MCHC RDW Plt Count MPV Gran % Lymph % (Auto) Stearns % (Auto) Eos % (Auto) Baso % (Auto) Gran # Lymph # Stearns # Eos # Baso # Sodium Potassium Chloride Carbon Dioxide Anion Gap BUN Creatinine Est GFR ( Amer) Est GFR (Non-Af Amer) POC Glucose (mg/dL) 131 H 320 H 263 H Random Glucose Calcium Phosphorus Magnesium Total Bilirubin AST ALT Alkaline Phosphatase Total Protein Albumin Globulin Albumin/Globulin Ratio 02/13/17 02/13/17 02/13/17 06:12 06:30 07:45 WBC 6.7 RBC 3.40 L Hgb 9.8 L Hct 28.5 L MCV 83.8 MCH 28.8 MCHC 34.4 RDW 13.1 Plt Count 250 MPV 10.8 Gran % 46.6 L Lymph % (Auto) 44.6 H Stearns % (Auto) 6.6 H Eos % (Auto) 1.8 Baso % (Auto) 0.4 Gran # 3.13 Lymph # 3.0 Stearns # 0.4 Eos # 0.1 Baso # 0.03 Sodium 143 Potassium 3.9 Chloride 108 H Carbon Dioxide 27 Anion Gap 12 BUN 27 H Creatinine 0.9 Est GFR ( Amer) > 60 Est GFR (Non-Af Amer) > 60 POC Glucose (mg/dL) 67 Random Glucose 55 L Calcium 9.2 Phosphorus 4.5 Magnesium 1.9 Total Bilirubin 0.3 AST 30 ALT 35 Alkaline Phosphatase 70 Total Protein 7.2 Albumin 4.0 Globulin 3.2 Albumin/Globulin Ratio 1.3 02/13/17 11:27 WBC RBC Hgb Hct MCV MCH MCHC RDW Plt Count MPV Gran % Lymph % (Auto) Stearns % (Auto) Eos % (Auto) Baso % (Auto) Gran # Lymph # Stearns # Eos # Baso # Sodium Potassium Chloride Carbon Dioxide Anion Gap BUN Creatinine Est GFR ( Amer) Est GFR (Non-Af Amer) POC Glucose (mg/dL) 156 H Random Glucose Calcium Phosphorus Magnesium Total Bilirubin AST ALT Alkaline Phosphatase Total Protein Albumin Globulin Albumin/Globulin Ratio Attending/Attestation - Attestation I have personally seen and examined this patient.: Yes I have fully participated in the care of the patient.: Yes I have reviewed all pertinent clinical information: Yes Notes (Text): 02/13/17 18:01 Patient seen and examined. Vitas, labs, discharge paperwork and medications reviewed. Admitted for sub-acute rehab. Continue chronic medications. Agree with the plan outlined above by the resident.
[2017-02-12] MEDS: Insulin Detemir 100 units/ml Vial (Levemir) SC SCH (21:55)
[2017-02-13] MEDS: Enoxaparin 40 mg Syringe SC SCH (06:15)
[2017-02-13 06:53] LABS: ADD MANUAL DIFF? NO
[2017-02-13] MEDS: Insulin Reg-LOW-Coverage SC SCH ×3 (06:53→17:58)
[2017-02-13 07:08] LABS: BASO # 0.03 K/mm3 (0.0-2.0); BASO % 0.4 % (0.0-3.0); EOS # 0.1 (0.0-0.7); EOS % 1.8 % (1.5-5.0); GRAN # 3.13 (1.4-6.5); GRAN % 46.6 % (50.0-68.0); HEMATOCRIT 28.5 % (36.0-48.0); LYMPH % 44.6 % (22.0-35.0); MEAN CELL VOLUME 83.8 fL (80.0-105.0); MEAN CORPUSCULAR HEMOGLOBIN 28.8 pg (25.0-35.0); MEAN CORPUSCULAR HGB CONC 34.4 g/dl (31.0-37.0); MEAN PLATELET VOLUME 10.8 fl (7.0-11.0); MONO # 0.4 (0.1-0.6); MONO % 6.6 % (1.0-6.0); PLATELET COUNT 250 10^3/uL (120.0-450.0); RED CELL DISTRIBUTION WIDTH 13.1 % (11.5-14.5); WHITE BLOOD COUNT 6.7 10^3/ul (4.5-11.0)
[2017-02-13 08:37] LABS: ALB/GLOB RATIO 1.3 (1.1-1.8); ALKALINE PHOSPHATASE 70 U/L (38-133); ALT/SGPT 35 U/L (7-56); AST/SGOT 30 U/L (15-39); BILIRUBIN,TOTAL 0.3 mg/dL (0.2-1.3); BLOOD UREA NITROGEN 27 mg/dL (7-21); CALCIUM 9.2 mg/dL (8.4-10.5); CARBON DIOXIDE 27 mmol/L (21-33); CHLORIDE 108 mmol/L (98-107); GFR AFRICAN-AMERICAN > 60; GLUCOSE,RANDOM 55 mg/dL (70-110); MAGNESIUM 1.9 mg/dL (1.7-2.2); PHOSPHOROUS 4.5 mg/dL (2.5-4.5); POTASSIUM 3.9 mmol/L (3.6-5.0); SODIUM 143 mmol/L (132-148); TOTAL PROTEIN 7.2 g/dL (5.8-8.3)
[2017-02-13] MEDS: Insulin Detemir 100 units/ml Vial (Levemir) SC SCH (22:37)
[2017-02-14] MEDS: Enoxaparin 40 mg Syringe SC SCH (05:10)
[2017-02-14] MEDS: Insulin Reg-LOW-Coverage SC SCH ×3 (07:38→22:02)
[2017-02-14 08:22] LABS: ADD MANUAL DIFF? NO
[2017-02-14 08:29] LABS: BASO # 0.04 K/mm3 (0.0-2.0); BASO % 0.6 % (0.0-3.0); EOS # 0.1 (0.0-0.7); EOS % 1.6 % (1.5-5.0); GRAN # 3.15 (1.4-6.5); HEMATOCRIT 30.9 % (36.0-48.0); LYMPH # 2.7 (1.2-3.4); LYMPH % 42.2 % (22.0-35.0); MEAN CELL VOLUME 86.1 fL (80.0-105.0); MEAN CORPUSCULAR HEMOGLOBIN 28.1 pg (25.0-35.0); MEAN CORPUSCULAR HGB CONC 32.7 g/dl (31.0-37.0); MEAN PLATELET VOLUME 10.3 fl (7.0-11.0); MONO # 0.4 (0.1-0.6); MONO % 5.6 % (1.0-6.0); PLATELET COUNT 231 10^3/uL (120.0-450.0); RED CELL DISTRIBUTION WIDTH 12.8 % (11.5-14.5); WHITE BLOOD COUNT 6.3 10^3/ul (4.5-11.0)
--- NOTE | 2017-02-14 14:14 | CP.PCM.PN ---
<Alexander Tariq - Last Filed: 02/14/17 15:59> Subjective - Date & Time of Evaluation Date of Evaluation: 02/14/17 Time of Evaluation: 07:40 - Subjective Subjective: Internal Medicine Progress Note for Dr. Poole Patient seen and examined at bedside in the TCU. Resting comfortably in bed. No acute events overnight. Continues to have no complaints, feels well, believes she is leaving tomorrow. Denies chest pain, shortness of breath, new focal weakness, generalized weakness, nausea, or emesis. States she is walking well with PT. Objective - Vital Signs/Intake and Output Vital Signs (last 24 hours): Temp Pulse Resp BP Pulse Ox 98.2 F 62 18 136/72 99 02/14/17 10:00 02/14/17 10:55 02/14/17 10:00 02/14/17 10:55 02/14/17 10:00 - Medications Medications: Current Medications Acetaminophen (Tylenol 325mg Tab) 650 mg PO Q6 PRN; Protocol PRN Reason: Pain 4-10 Aspirin (Ecotrin) 81 mg PO 0800 HERBERT PRN Reason: Protocol Last Admin: 02/14/17 08:39 Dose: 81 mg Atorvastatin Calcium (Lipitor) 40 mg PO HS HERBERT PRN Reason: Protocol Last Admin: 02/13/17 22:38 Dose: 40 mg Donepezil HCl (Aricept) 5 mg PO HS HERBERT PRN Reason: Protocol Last Admin: 02/13/17 22:38 Dose: 5 mg Enoxaparin Sodium (Lovenox) 40 mg SC 0600 HERBERT PRN Reason: Protocol Last Admin: 02/14/17 05:10 Dose: 40 mg Hydralazine HCl (Apresoline) 10 mg IVP Q6 PRN; Protocol PRN Reason: Systolic Blood Pressure Insulin Detemir (Levemir) 15 unit SC HS HERBERT PRN Reason: Protocol Last Admin: 02/13/17 22:37 Dose: 15 unit Insulin Human Regular (Humulin R Low) 0 units SC ACHS HERBERT PRN Reason: Protocol Last Admin: 02/14/17 07:38 Dose: Not Given Lisinopril (Zestril) 5 mg PO DAILY HERBERT PRN Reason: Protocol Last Admin: 02/14/17 10:55 Dose: 5 mg Metformin HCl (Glucophage) 1,000 mg PO BID HERBERT PRN Reason: Protocol Last Admin: 02/14/17 10:55 Dose: 1,000 mg Nicotine (Nicoderm Cq) 1 patch TD DAILY [facility] Last Admin: 02/14/17 10:54 Dose: 1 patch Zolpidem Tartrate (Ambien) 5 mg PO HS PRN; Protocol PRN Reason: Insomnia - Labs Labs: 02/14/17 06:00 02/13/17 07:45 - Constitutional Appears: Non-toxic, No Acute Distress - Head Exam Head Exam: ATRAUMATIC, NORMAL INSPECTION, NORMOCEPHALIC - Eye Exam Eye Exam: EOMI, Normal appearance. absent: Conjunctival injection, Scleral icterus Pupil Exam: absent: Irregular, Unequal - ENT Exam ENT Exam: Mucous Membranes Moist - Neck Exam Neck Exam: Full ROM. absent: Tenderness - Respiratory Exam Respiratory Exam: Clear to Ausculation Bilateral, NORMAL BREATHING PATTERN - Cardiovascular Exam Cardiovascular Exam: REGULAR RHYTHM, RRR, +S1, +S2. absent: Bradycardia, Tachycardia, Irregular Rhythm, +S4 - GI/Abdominal Exam GI & Abdominal Exam: Soft, Normal Bowel Sounds. absent: Distended, Firm, Rigid , Tenderness, Diminished Bowel Sounds, Hyperactive Bowel Sounds, Hypoactive Bowel Sounds - Extremities Exam Extremities Exam: Normal Inspection. absent: Calf Tenderness, Pedal Edema - Neurological Exam Neurological Exam: Alert, Awake - Psychiatric Exam Psychiatric exam: Normal Affect, Normal Mood - Skin Skin Exam: Dry, Intact, Normal Color, Warm Assessment and Plan - Assessment and Plan (Free Text) Assessment: This is a 84 yo F with PMH of HTN, DM, CVA, and dementia who was admitted to TCU for rehab after admission to [facility] for AMS/Syncope, likely TIA. Plan: 1) AMS: Resolved -likely TIA vs transient hypotension, unlikely CVA -CT head negative -continue ASA and Statin as per Neuro -No obvious deficits on exam -Continue rehab in TCU, tolerating PT/OT activities well 2) HTN -Continue Lisinopril, PRN Hydralazine 3) DM -Continue Levemir 20units HS + ISS-Low, metformin -Fingersticks ACHS 4) Dementia -Continue Donepezil and Aricept 5) Tobacco abuse -continue nicotine patch 14mcg Dispo: TCU, continuing to undergoing strengthening FEN: Dysphagia/Modified Consistence Access: Peripheral IVs Consults: Neuro Ppx: [place] for DVT Patient seen, reviewed, and discussed with attending, Dr. Poole. <Farzad Poole - Last Filed: 02/15/17 07:24> Objective - Vital Signs/Intake and Output Vital Signs (last 24 hours): Temp Pulse Resp BP Pulse Ox 98.2 F 62 18 136/72 99 02/14/17 10:00 02/14/17 10:55 02/14/17 10:00 02/14/17 10:55 02/14/17 10:00 - Medications Medications: Current Medications Acetaminophen (Tylenol 325mg Tab) 650 mg PO Q6 PRN; Protocol PRN Reason: Pain 4-10 Aspirin (Ecotrin) 81 mg PO 0800 HERBERT PRN Reason: Protocol Last Admin: 02/14/17 08:39 Dose: 81 mg Atorvastatin Calcium (Lipitor) 40 mg PO HS HERBERT PRN Reason: Protocol Last Admin: 02/14/17 22:01 Dose: 40 mg Donepezil HCl (Aricept) 5 mg PO HS HERBERT PRN Reason: Protocol Last Admin: 02/14/17 22:02 Dose: 5 mg Enoxaparin Sodium (Lovenox) 40 mg SC 0600 HERBERT PRN Reason: Protocol Last Admin: 02/15/17 05:46 Dose: 40 mg Hydralazine HCl (Apresoline) 10 mg PO QID PRN PRN Reason: high SBP Insulin Detemir (Levemir) 15 unit SC HS HERBERT PRN Reason: Protocol Last Admin: 02/14/17 22:03 Dose: 15 unit Insulin Human Regular (Humulin R Low) 0 units SC ACHS HERBERT PRN Reason: Protocol Last Admin: 02/15/17 07:01 Dose: Not Given Lisinopril (Zestril) 5 mg PO DAILY HERBERT PRN Reason: Protocol Last Admin: 02/14/17 10:55 Dose: 5 mg Metformin HCl (Glucophage) 1,000 mg PO BID HERBERT PRN Reason: Protocol Last Admin: 02/14/17 17:35 Dose: 1,000 mg Nicotine (Nicoderm Cq) 1 patch TD DAILY HERBERT Last Admin: 02/14/17 10:54 Dose: 1 patch Zolpidem Tartrate (Ambien) 5 mg PO HS PRN; Protocol PRN Reason: Insomnia Last Admin: 02/14/17 22:02 Dose: 5 mg - Labs Labs: 02/14/17 06:00 02/13/17 07:45 Attending/Attestation - Attestation I have personally seen and examined this patient.: Yes I have fully participated in the care of the patient.: Yes I have reviewed all pertinent clinical information, including history, physical exam and plan: Yes Notes (Text): 02/14/17 84 year old female with past medical history of hypertension, diabetes, CVA and dementia who presented with weakness and altered mental status now improved. CT head was negative. She was seen by neurology. Symptoms were likely secondary to TIA. Continue with aspirin and statin. She was transferred to TCU for rehab therapy. Continue with lisinopril for hypertension and levemir and metformin for diabetes. She is also on donepezil and aricept for dementia. Farzad Poole MD Hospitalist.
[2017-02-14] MEDS: Insulin Detemir 100 units/ml Vial (Levemir) SC SCH (22:03)
[2017-02-15] MEDS: Enoxaparin 40 mg Syringe SC SCH (05:46)
[2017-02-15] MEDS: Insulin Reg-LOW-Coverage SC SCH ×3 (07:01→21:57)
[2017-02-15] MEDS: Insulin Detemir 100 units/ml Vial (Levemir) SC SCH (22:13)
[2017-02-16] MEDS: Enoxaparin 40 mg Syringe SC SCH (05:13)
[2017-02-16] MEDS: Insulin Reg-LOW-Coverage SC SCH ×4 (06:35→23:15)
--- NOTE | 2017-02-16 18:33 | CP.PCM.PN ---
<Alexander Tariq - Last Filed: 02/16/17 18:31> Subjective - Date & Time of Evaluation Date of Evaluation: 02/16/17 Time of Evaluation: 07:30 - Subjective Subjective: Internal Medicine Progress Note for Dr. Poole Patient seen and examined at bedside in the TCU. Resting comfortably in bed. No acute events overnight. Continues to have no complaints, feels well. Denies chest pain, shortness of breath, new focal weakness, generalized weakness , nausea, or emesis. States she is walking well with PT. Objective - Vital Signs/Intake and Output Vital Signs (last 24 hours): Temp Pulse Resp BP Pulse Ox 98.2 F 70 18 129/74 99 02/16/17 10:00 02/16/17 10:06 02/16/17 10:00 02/16/17 10:06 02/16/17 10:00 - Medications Medications: Current Medications Acetaminophen (Tylenol 325mg Tab) 650 mg PO Q6 PRN; Protocol PRN Reason: Pain 4-10 Aspirin (Ecotrin) 81 mg PO 0800 HERBERT PRN Reason: Protocol Last Admin: 02/16/17 08:40 Dose: 81 mg Atorvastatin Calcium (Lipitor) 40 mg PO HS HERBERT PRN Reason: Protocol Last Admin: 02/15/17 21:41 Dose: 40 mg Donepezil HCl (Aricept) 5 mg PO HS HERBERT PRN Reason: Protocol Last Admin: 02/15/17 21:41 Dose: 5 mg Enoxaparin Sodium (Lovenox) 40 mg SC 0600 HERBERT PRN Reason: Protocol Last Admin: 02/16/17 05:13 Dose: 40 mg Hydralazine HCl (Apresoline) 10 mg PO QID PRN PRN Reason: high SBP Insulin Detemir (Levemir) 15 unit SC HS HERBERT PRN Reason: Protocol Last Admin: 02/15/17 22:13 Dose: 15 unit Insulin Human Regular (Humulin R Low) 0 units SC ACHS HERBERT PRN Reason: Protocol Last Admin: 02/16/17 17:30 Dose: Not Given Lisinopril (Zestril) 5 mg PO DAILY HERBERT PRN Reason: Protocol Last Admin: 02/16/17 10:06 Dose: 5 mg Metformin HCl (Glucophage) 1,000 mg PO BID HERBERT PRN Reason: Protocol Last Admin: 02/16/17 17:53 Dose: 1,000 mg Nicotine (Nicoderm Cq) 1 patch TD DAILY HERBERT Last Admin: 02/16/17 10:09 Dose: 1 patch Zolpidem Tartrate (Ambien) 5 mg PO HS PRN; Protocol PRN Reason: Insomnia Last Admin: 02/14/17 22:02 Dose: 5 mg - Labs Labs: 02/14/17 06:00 02/13/17 07:45 - Additional Findings Additional findings: - Constitutional Appears: Non-toxic, No Acute Distress - Head Exam Head Exam: ATRAUMATIC, NORMAL INSPECTION, NORMOCEPHALIC - Eye Exam Eye Exam: EOMI, Normal appearance. absent: Conjunctival injection, Scleral icterus Pupil Exam: absent: Irregular, Unequal - ENT Exam ENT Exam: Mucous Membranes Moist - Neck Exam Neck Exam: Full ROM. absent: Tenderness - Respiratory Exam Respiratory Exam: Clear to Ausculation Bilateral, NORMAL BREATHING PATTERN - Cardiovascular Exam Cardiovascular Exam: REGULAR RHYTHM, RRR, +S1, +S2. absent: Bradycardia, Tachycardia, Irregular Rhythm, +S4 - GI/Abdominal Exam GI & Abdominal Exam: Soft, Normal Bowel Sounds. absent: Distended, Firm, Rigid , Tenderness, Diminished Bowel Sounds, Hyperactive Bowel Sounds, Hypoactive Bowel Sounds - Extremities Exam Extremities Exam: Normal Inspection. absent: Calf Tenderness, Pedal Edema - Neurological Exam Neurological Exam: Alert, Awake - Psychiatric Exam Psychiatric exam: Normal Affect, Normal Mood - Skin Skin Exam: Dry, Intact, Normal Color, Warm Assessment and Plan - Assessment and Plan (Free Text) Assessment: This is a 84 yo F with PMH of HTN, DM, CVA, and dementia who was admitted to TCU for rehab after admission to [facility] for AMS/Syncope, likely TIA. Plan: 1) AMS: Resolved -likely TIA vs transient hypotension, unlikely CVA -CT head negative -continue ASA and Statin as per Neuro -No obvious deficits on exam -Continue rehab in TCU, tolerating PT/OT activities well 2) HTN -Continue Lisinopril, PRN Hydralazine 3) DM -Continue Levemir 20units HS + ISS-Low, metformin -Fingersticks ACHS 4) Dementia -Continue Donepezil and Aricept 5) Tobacco abuse -continue nicotine patch 14mcg Dispo: TCU, continuing to undergoing strengthening, D/c on Monday as per TCU staff FEN: Dysphagia/Modified Consistence Access: Peripheral IVs Consults: Neuro Ppx: Lovenox for DVT Patient seen, reviewed, and discussed with attending, Dr. Poole. <Farzad Poole - Last Filed: 02/16/17 22:43> Objective - Vital Signs/Intake and Output Vital Signs (last 24 hours): Temp Pulse Resp BP Pulse Ox 98.2 F 70 18 129/74 99 02/16/17 10:00 02/16/17 10:02/16/17 10:00 02/16/17 10:02/16/17 10:00 - Medications Medications: Current Medications Acetaminophen (Tylenol 325mg Tab) 650 mg PO Q6 PRN; Protocol PRN Reason: Pain 4-10 Aspirin (Ecotrin) 81 mg PO 0800 HERBERT PRN Reason: Protocol Last Admin: 02/16/17 08:40 Dose: 81 mg Atorvastatin Calcium (Lipitor) 40 mg PO HS HERBERT PRN Reason: Protocol Last Admin: 02/15/17 21:41 Dose: 40 mg Donepezil HCl (Aricept) 5 mg PO HS HERBERT PRN Reason: Protocol Last Admin: 02/15/17 21:41 Dose: 5 mg Enoxaparin Sodium (Lovenox) 40 mg SC 0600 HERBERT PRN Reason: Protocol Last Admin: 02/16/17 05:13 Dose: 40 mg Hydralazine HCl (Apresoline) 10 mg PO QID PRN PRN Reason: high SBP Insulin Detemir (Levemir) 15 unit SC HS HERBERT PRN Reason: Protocol Last Admin: 02/15/17 22:13 Dose: 15 unit Insulin Human Regular (Humulin R Low) 0 units SC ACHS HERBERT PRN Reason: Protocol Last Admin: 02/16/17 17:30 Dose: Not Given Lisinopril (Zestril) 5 mg PO DAILY HERBERT PRN Reason: Protocol Last Admin: 02/16/17 10:06 Dose: 5 mg Metformin HCl (Glucophage) 1,000 mg PO BID HERBERT PRN Reason: Protocol Last Admin: 02/16/17 17:53 Dose: 1,000 mg Nicotine (Nicoderm Cq) 1 patch TD DAILY [facility] Last Admin: 02/16/17 10:09 Dose: 1 patch Zolpidem Tartrate (Ambien) 5 mg PO HS PRN; Protocol PRN Reason: Insomnia Last Admin: 02/14/17 22:02 Dose: 5 mg - Labs Labs: 02/14/17 06:00 02/13/17 07:45 Attending/Attestation - Attestation I have personally seen and examined this patient.: Yes I have fully participated in the care of the patient.: Yes I have reviewed all pertinent clinical information, including history, physical exam and plan: Yes Notes (Text): 02/16/17 22:41 84 year old female with past medical history of hypertension, diabetes, CVA and dementia who presented with weakness and altered mental status now improved. CT head was negative. She was seen by neurology. Symptoms were likely secondary to TIA. Continue with physical therapy in the TCU. Continue with aspirin and statin. Continue with lisinopril for hypertension. Also on levemir and metformin for diabetes. She is also on donepezil and aricept for dementia. Farzad Poole MD Hospitalist.
[2017-02-16] MEDS: Insulin Detemir 100 units/ml Vial (Levemir) SC SCH (23:16)
[2017-02-17] MEDS: Enoxaparin 40 mg Syringe SC SCH (05:26)
[2017-02-17] MEDS: Insulin Reg-LOW-Coverage SC SCH ×5 (07:06→22:00)
[2017-02-17] MEDS: Insulin Detemir 100 units/ml Vial (Levemir) SC SCH (21:32)
[2017-02-18] MEDS: Enoxaparin 40 mg Syringe SC SCH (05:50)
[2017-02-18] MEDS: Insulin Reg-LOW-Coverage SC SCH ×4 (07:40→22:33)
[2017-02-18 08:57] LABS: ADD MANUAL DIFF? NO
[2017-02-18 09:00] LABS: BASO # 0.05 K/mm3 (0.0-2.0); BASO % 0.8 % (0.0-3.0); EOS # 0.1 (0.0-0.7); EOS % 1.1 % (1.5-5.0); GRAN # 3.43 (1.4-6.5); GRAN % 53.6 % (50.0-68.0); HEMATOCRIT 30.4 % (36.0-48.0); LYMPH # 2.5 (1.2-3.4); LYMPH % 39.5 % (22.0-35.0); MEAN CELL VOLUME 85.9 fL (80.0-105.0); MEAN CORPUSCULAR HEMOGLOBIN 28.5 pg (25.0-35.0); MEAN CORPUSCULAR HGB CONC 33.2 g/dl (31.0-37.0); MONO # 0.3 (0.1-0.6); PLATELET COUNT 238 10^3/uL (120.0-450.0); RED CELL DISTRIBUTION WIDTH 12.8 % (11.5-14.5); WHITE BLOOD COUNT 6.4 10^3/ul (4.5-11.0)
[2017-02-18 09:09] LABS: BLOOD UREA NITROGEN 25 mg/dL (7-21); CALCIUM 9.4 mg/dL (8.4-10.5); CARBON DIOXIDE 24 mmol/L (21-33); CHLORIDE 105 mmol/L (95-110); GFR AFRICAN-AMERICAN > 60; GLUCOSE,RANDOM 220 mg/dL (70-110); MAGNESIUM 1.8 mg/dL (1.7-2.2); PHOSPHOROUS 4.8 mg/dL (2.5-4.5); POTASSIUM 4.4 mmol/L (3.6-5.0); SODIUM 140 mmol/L (132-148)
--- NOTE | 2017-02-18 17:16 | CP.PCM.PN ---
<Alexander Tariq - Last Filed: 02/18/17 17:12> Subjective - Date & Time of Evaluation Date of Evaluation: 02/18/17 Time of Evaluation: 07:45 - Subjective Subjective: Internal Medicine Progress Note for Dr. Rojas Patient seen and examined at bedside in the TCU. Resting comfortably in bed. No acute events overnight. Continues to have no complaints, feels well. Denies chest pain, shortness of breath, new focal weakness, generalized weakness , nausea, or emesis. States she is walking well with PT. Pending discharge from TCU tomorrow. Objective - Vital Signs/Intake and Output Vital Signs (last 24 hours): Temp Pulse Resp BP Pulse Ox 98.2 F 63 18 100/54 L 99 02/18/17 16:00 02/18/17 16:00 02/18/17 16:00 02/18/17 16:00 02/18/17 16:00 Intake and Output: 02/18/17 02/18/17 06:59 18:59 Intake Total 600 Balance 600 - Medications Medications: Current Medications Acetaminophen (Tylenol 325mg Tab) 650 mg PO Q6 PRN; Protocol PRN Reason: Pain 4-10 Aspirin (Ecotrin) 81 mg PO 0800 HERBERT PRN Reason: Protocol Last Admin: 02/18/17 08:22 Dose: 81 mg Atorvastatin Calcium (Lipitor) 40 mg PO HS HERBERT PRN Reason: Protocol Last Admin: 02/17/17 21:34 Dose: 40 mg Donepezil HCl (Aricept) 5 mg PO HS HERBERT PRN Reason: Protocol Last Admin: 02/17/17 21:34 Dose: 5 mg Enoxaparin Sodium (Lovenox) 40 mg SC 0600 HERBERT PRN Reason: Protocol Last Admin: 02/18/17 05:50 Dose: 40 mg Hydralazine HCl (Apresoline) 10 mg PO QID PRN PRN Reason: high SBP Last Admin: 02/17/17 10:58 Dose: 10 mg Insulin Detemir (Levemir) 15 unit SC HS HERBERT PRN Reason: Protocol Last Admin: 02/17/17 21:32 Dose: 15 unit Insulin Human Regular (Humulin R Low) 0 units SC ACHS HERBERT PRN Reason: Protocol Last Admin: 02/18/17 11:49 Dose: 3 units Lisinopril (Zestril) 5 mg PO DAILY HERBERT PRN Reason: Protocol Last Admin: 02/18/17 10:44 Dose: 5 mg Metformin HCl (Glucophage) 1,000 mg PO BID HERBERT PRN Reason: Protocol Last Admin: 02/18/17 10:44 Dose: 1,000 mg Nicotine (Nicoderm Cq) 1 patch TD DAILY HERBERT Last Admin: 02/18/17 10:44 Dose: 1 patch Zolpidem Tartrate (Ambien) 5 mg PO HS PRN; Protocol PRN Reason: Insomnia Last Admin: 02/14/17 22:02 Dose: 5 mg - Labs Labs: 02/18/17 08:30 02/18/17 08:30 - Additional Findings Additional findings: - Constitutional Appears: Non-toxic, No Acute Distress, Resting/Sitting in bed comfortably - Head Exam Head Exam: ATRAUMATIC, NORMAL INSPECTION, NORMOCEPHALIC - Eye Exam Eye Exam: EOMI, Normal appearance. absent: Conjunctival injection, Scleral icterus Pupil Exam: absent: Irregular, Unequal - ENT Exam ENT Exam: Mucous Membranes Moist - Neck Exam Neck Exam: Full ROM. absent: Tenderness - Respiratory Exam Respiratory Exam: Clear to Ausculation Bilateral, NORMAL BREATHING PATTERN - Cardiovascular Exam Cardiovascular Exam: REGULAR RHYTHM, RRR, +S1, +S2. absent: Bradycardia, Tachycardia, Irregular Rhythm, +S4 - GI/Abdominal Exam GI & Abdominal Exam: Soft, Normal Bowel Sounds. absent: Distended, Firm, Rigid , Tenderness, Diminished Bowel Sounds, Hyperactive Bowel Sounds, Hypoactive Bowel Sounds - Extremities Exam Extremities Exam: Normal Inspection. absent: Calf Tenderness, Pedal Edema - Neurological Exam Neurological Exam: Alert, Awake, Moving all extremities spontaneously - Psychiatric Exam Psychiatric exam: Normal Affect, Normal Mood - Skin Skin Exam: Dry, Intact, Normal Color, Warm Assessment and Plan - Assessment and Plan (Free Text) Assessment: This is a 84 yo F with PMH of HTN, DM, CVA, and dementia who was admitted to TCU for rehab after admission to [facility] for AMS/Syncope, likely TIA. Plan: 1) AMS: Resolved -likely TIA vs transient hypotension, unlikely CVA -CT head negative -continue ASA and Statin as per Neuro -No obvious deficits on exam -Continue rehab in TCU, tolerating PT/OT activities well 2) HTN -Continue Lisinopril, PRN Hydralazine 3) DM -Continue Levemir 20units HS + ISS-Low, metformin -Fingersticks ACHS 4) Dementia -Continue Donepezil and Aricept -Appropriate mentation, answering questions and following commands appropriately 5) Tobacco abuse -continue nicotine patch 14mcg Dispo: TCU, continuing to undergoing strengthening, D/c tomorrow as per TCU staff FEN: Dysphagia/Modified Consistence Access: Peripheral IVs Consults: Neuro Ppx: Lovenox for DVT Patient reviewed and discussed with attending, Dr. Rojas <Yelena Rojas - Last Filed: 02/18/17 22:01> Objective - Vital Signs/Intake and Output Vital Signs (last 24 hours): Temp Pulse Resp BP Pulse Ox 98.2 F 63 18 100/54 L 99 02/18/17 16:00 02/18/17 16:00 02/18/17 16:00 02/18/17 16:00 02/18/17 16:00 - Medications Medications: Current Medications Acetaminophen (Tylenol 325mg Tab) 650 mg PO Q6 PRN; Protocol PRN Reason: Pain 4-10 Aspirin (Ecotrin) 81 mg PO 0800 HERBERT PRN Reason: Protocol Last Admin: 02/18/17 08:22 Dose: 81 mg Atorvastatin Calcium (Lipitor) 40 mg PO HS HERBERT PRN Reason: Protocol Last Admin: 02/18/17 21:21 Dose: 40 mg Donepezil HCl (Aricept) 5 mg PO HS HERBERT PRN Reason: Protocol Last Admin: 02/18/17 21:21 Dose: 5 mg Enoxaparin Sodium (Lovenox) 40 mg SC 0600 HERBERT PRN Reason: Protocol Last Admin: 02/18/17 05:50 Dose: 40 mg Hydralazine HCl (Apresoline) 10 mg PO QID PRN PRN Reason: high SBP Last Admin: 02/17/17 10:58 Dose: 10 mg Insulin Detemir (Levemir) 15 unit SC HS HERBERT PRN Reason: Protocol Last Admin: 02/17/17 21:32 Dose: 15 unit Insulin Human Regular (Humulin R Low) 0 units SC ACHS HERBERT PRN Reason: Protocol Last Admin: 02/18/17 17:51 Dose: Not Given Lisinopril (Zestril) 5 mg PO DAILY HERBERT PRN Reason: Protocol Last Admin: 02/18/17 10:44 Dose: 5 mg Metformin HCl (Glucophage) 1,000 mg PO BID HERBERT PRN Reason: Protocol Last Admin: 02/18/17 17:50 Dose: 1,000 mg Nicotine (Nicoderm Cq) 1 patch TD DAILY HERBERT Last Admin: 02/18/17 10:44 Dose: 1 patch Zolpidem Tartrate (Ambien) 5 mg PO HS PRN; Protocol PRN Reason: Insomnia Last Admin: 02/14/17 22:02 Dose: 5 mg - Labs Labs: 02/18/17 08:30 02/18/17 08:30 Attending/Attestation - Attestation I have personally seen and examined this patient.: Yes I have fully participated in the care of the patient.: Yes I have reviewed all pertinent clinical information, including history, physical exam and plan: Yes Notes (Text): 02/18/17 22:00 Patient seen and examined at bedside. labs, vitals reviewed. No new events reported. Agree with the plan outlined by the resident.
[2017-02-18] MEDS: Insulin Detemir 100 units/ml Vial (Levemir) SC SCH (22:30)
[2017-02-19] MEDS: Enoxaparin 40 mg Syringe SC SCH (05:13)
[2017-02-19 06:12] VITALS: O2SAT 98
[2017-02-19] MEDS: Insulin Reg-LOW-Coverage SC SCH ×2 (07:31→11:33)
[2017-02-19 09:46] VITALS: BP 106/63; PULSE 59
[2017-02-19 10:49] VITALS: RESP 18; TEMP 98.2
--- NOTE | 2017-02-19 13:12 | CP.PCM.DIS ---
<Edgar Araujo - Last Filed: 02/19/17 13:16> Provider - Provider Date of Admission: 02/11/17 16:33 Attending physician: Farzad Poole MD Primary care physician: Avelino Greenfield MD Consults: Dr. Patrick Reynolds- Neuro Time Spent in preparation of Discharge (in minutes): 45 Hospital Course - Lab Results Lab Results: Most Recent Lab Values WBC 6.4 10^3/ul (4.5-11.0) 02/18/17 08:30 RBC 3.54 10^6/uL (3.5-6.1) 02/18/17 08:30 Hgb 10.1 gm/dL (12.0-16.0) L 02/18/17 08:30 Hct 30.4 % (36.0-48.0) L 02/18/17 08:30 MCV 85.9 fL (80.0-105.0) 02/18/17 08:30 MCH 28.5 pg (25.0-35.0) 02/18/17 08:30 MCHC 33.2 g/dl (31.0-37.0) 02/18/17 08:30 RDW 12.8 % (11.5-14.5) 02/18/17 08:30 Plt Count 238 10^3/uL (120.0-450.0) 02/18/17 08:30 MPV 11.0 fl (7.0-11.0) 02/18/17 08:30 Gran % 53.6 % (50.0-68.0) 02/18/17 08:30 Lymph % (Auto) 39.5 % (22.0-35.0) H 02/18/17 08:30 Park % (Auto) 5.0 % (1.0-6.0) 02/18/17 08:30 Eos % (Auto) 1.1 % (1.5-5.0) L 02/18/17 08:30 Baso % (Auto) 0.8 % (0.0-3.0) 02/18/17 08:30 Gran # 3.43 (1.4-6.5) 02/18/17 08:30 Lymph # 2.5 (1.2-3.4) 02/18/17 08:30 Park # 0.3 (0.1-0.6) 02/18/17 08:30 Eos # 0.1 (0.0-0.7) 02/18/17 08:30 Baso # 0.05 K/mm3 (0.0-2.0) 02/18/17 08:30 Sodium 140 mmol/L (132-148) 02/18/17 08:30 Potassium 4.4 mmol/L (3.6-5.0) 02/18/17 08:30 Chloride 105 mmol/L (95-110) 02/18/17 08:30 Carbon Dioxide 24 mmol/L (21-33) 02/18/17 08:30 Anion Gap 15 (10-20) 02/18/17 08:30 BUN 25 mg/dL (7-21) H 02/18/17 08:30 Creatinine 0.9 mg/dL (0.5-1.4) 02/18/17 08:30 Est GFR ( Amer) > 60 02/18/17 08:30 Est GFR (Non-Af Amer) > 60 02/18/17 08:30 POC Glucose (mg/dL) 116 mg/dL (65-110) H 02/19/17 04:54 Random Glucose 220 mg/dL (70-110) H 02/18/17 08:30 Calcium 9.4 mg/dL (8.4-10.5) 02/18/17 08:30 Phosphorus 4.8 mg/dL (2.5-4.5) H 02/18/17 08:30 Magnesium 1.8 mg/dL (1.7-2.2) 02/18/17 08:30 Total Bilirubin 0.3 mg/dL (0.2-1.3) 02/13/17 07:45 AST 30 U/L (15-39) 02/13/17 07:45 ALT 35 U/L (7-56) 02/13/17 07:45 Alkaline Phosphatase 70 U/L (38-133) 02/13/17 07:45 Total Protein 7.2 g/dL (5.8-8.3) 02/13/17 07:45 Albumin 4.0 g/dL (3.0-4.8) 02/13/17 07:45 Globulin 3.2 gm/dL 02/13/17 07:45 Albumin/Globulin Ratio 1.3 (1.1-1.8) 02/13/17 07:45 - Hospital Course Hospital Course: Attending: Bob Poole Admit date- 02/12/17 DC date- 02/19/17 Procedures- none Complications - none Discharge dx 1. TIA 2. HTN 3. DM 4. Dementia 5. Tobacco abuse HPI: see h/p Labs: see lab data Hospital course 66 yo female w/PMHx history of HTN, DM, CVA, dementia, presents from discharge from [facility] admission for AMS, TIA and syncope, for the purpose of rehabilitation. Pt denies chest pain, abdominal pain, n/v/fever/chills, hematuria, dysuria, and diarrhea. 1) AMS: Resolved -likely TIA vs transient hypotension, unlikely CVA -CT head negative -continue ASA and Statin as per Neuro -No obvious deficits on exam -Continue rehab in TCU, tolerating PT/OT activities well 2) HTN -Continue Lisinopril, PRN Hydralazine 3) DM -Continue Levemir 20units HS + ISS-Low, metformin -switched to levemir 15 units HS -Fingersticks ACHS 4) Dementia -Continue Donepezil and Aricept -Appropriate mentation, answering questions and following commands appropriately 5) Tobacco abuse -continue nicotine patch 14mcg 6)GI/DVT -given lovenox for ppx -modified consistency diet. Discharge instructions Please discharge home. Please resume all home meds. Please return if condition worsens. Discharge meds 1. asa 81 daily 2. lipitor 40 mg po daily 3. lisinopril 5 daily 4. levemir 15 units hs 5. metformin 1000 bid 6. donepezil 5 daily 7. nicotine patch - Date & Time of H&P Date of H&P: 02/12/17 Time of H&P: 21:03 Discharge Exam - Head Exam Head Exam: ATRAUMATIC, NORMAL INSPECTION, NORMOCEPHALIC Discharge Plan - Follow Up Plan Condition: GOOD Disposition: HOME/ ROUTINE Instructions: Transient Ischemic Attack (GEN), How to Stop Smoking (DC), Syncope (DC), Cigarette Smoking and Your Health (GEN) Referrals: Avelino Greenfield [Primary Care Provider] - <Yelena Rojas - Last Filed: 02/19/17 13:38> Provider - Provider Date of Admission: 02/11/17 16:33 Attending physician: Farzad Poole MD Primary care physician: Avelino Greenfield MD Hospital Course - Lab Results Lab Results: Most Recent Lab Values WBC 6.4 10^3/ul (4.5-11.0) 02/18/17 08:30 RBC 3.54 10^6/uL (3.5-6.1) 02/18/17 08:30 Hgb 10.1 gm/dL (12.0-16.0) L 02/18/17 08:30 Hct 30.4 % (36.0-48.0) L 02/18/17 08:30 MCV 85.9 fL (80.0-105.0) 02/18/17 08:30 MCH 28.5 pg (25.0-35.0) 02/18/17 08:30 MCHC 33.2 g/dl (31.0-37.0) 02/18/17 08:30 RDW 12.8 % (11.5-14.5) 02/18/17 08:30 Plt Count 238 10^3/uL (120.0-450.0) 02/18/17 08:30 MPV 11.0 fl (7.0-11.0) 02/18/17 08:30 Gran % 53.6 % (50.0-68.0) 02/18/17 08:30 Lymph % (Auto) 39.5 % (22.0-35.0) H 02/18/17 08:30 Park % (Auto) 5.0 % (1.0-6.0) 02/18/17 08:30 Eos % (Auto) 1.1 % (1.5-5.0) L 02/18/17 08:30 Baso % (Auto) 0.8 % (0.0-3.0) 02/18/17 08:30 Gran # 3.43 (1.4-6.5) 02/18/17 08:30 Lymph # 2.5 (1.2-3.4) 02/18/17 08:30 Park # 0.3 (0.1-0.6) 02/18/17 08:30 Eos # 0.1 (0.0-0.7) 02/18/17 08:30 Baso # 0.05 K/mm3 (0.0-2.0) 02/18/17 08:30 Sodium 140 mmol/L (132-148) 02/18/17 08:30 Potassium 4.4 mmol/L (3.6-5.0) 02/18/17 08:30 Chloride 105 mmol/L (95-110) 02/18/17 08:30 Carbon Dioxide 24 mmol/L (21-33) 02/18/17 08:30 Anion Gap 15 (10-20) 02/18/17 08:30 BUN 25 mg/dL (7-21) H 02/18/17 08:30 Creatinine 0.9 mg/dL (0.5-1.4) 02/18/17 08:30 Est GFR ( Amer) > 60 02/18/17 08:30 Est GFR (Non-Af Amer) > 60 02/18/17 08:30 POC Glucose (mg/dL) 116 mg/dL (65-110) H 02/19/17 04:54 Random Glucose 220 mg/dL (70-110) H 02/18/17 08:30 Calcium 9.4 mg/dL (8.4-10.5) 02/18/17 08:30 Phosphorus 4.8 mg/dL (2.5-4.5) H 02/18/17 08:30 Magnesium 1.8 mg/dL (1.7-2.2) 02/18/17 08:30 Total Bilirubin 0.3 mg/dL (0.2-1.3) 02/13/17 07:45 AST 30 U/L (15-39) 02/13/17 07:45 ALT 35 U/L (7-56) 02/13/17 07:45 Alkaline Phosphatase 70 U/L (38-133) 02/13/17 07:45 Total Protein 7.2 g/dL (5.8-8.3) 02/13/17 07:45 Albumin 4.0 g/dL (3.0-4.8) 02/13/17 07:45 Globulin 3.2 gm/dL 02/13/17 07:45 Albumin/Globulin Ratio 1.3 (1.1-1.8) 02/13/17 07:45 Attending/Attestation - Attestation I have personally seen and examined this patient.: Yes I have fully participated in the care of the patient.: Yes I have reviewed all pertinent clinical information, including history, physical exam and plan: Yes Notes (Text): 02/19/17 13:36 Patient seen and examined at bedside. She is resting comfortably in bed in no acute distress. Denies any new complaints. vitals, labs, notes and orders reviewed. Agree with the discharge plan outlined by the resident.
== END 2017-02-19 14:44 | disposition home or self-care (01) | DRG 69 ==
LOC: TRCU 16:33
PROVIDERS: ADMIT Internal Medicine; ATTEND Internal Medicine
PROC: F07Z9ZZ Gait Training/Functional Ambulation Treatment (ICD-10-PCS; principal; 2017-02-12)
PROC: F08Z4ZZ Home Management Treatment (ICD-10-PCS; 2017-02-13)
DX: G45.9 Transient cerebral ischemic attack, unspecified (principal); F03.90 Unspecified dementia, unspecified severity, without behavioral disturbance, psychotic disturbance, mood disturbance, and anxiety; I10 Essential (primary) hypertension; E11.9 Type 2 diabetes mellitus without complications; R41.82 Altered mental status, unspecified; G47.00 Insomnia, unspecified; Z86.73 Personal history of transient ischemic attack (TIA), and cerebral infarction without residual deficits; Z72.0 Tobacco use; Z83.3 Family history of diabetes mellitus; Z82.49 Family history of ischemic heart disease and other diseases of the circulatory system

== ENCOUNTER 2017-03-12 23:39 | Emergency (ER) | payer MEDICARE, MEDICAID ==
[2017-03-12 23:40] VITALS: BMI 28.6
[2017-03-13 00:55] VITALS: RESP 17; TEMP 98.1
--- NOTE | 2017-03-13 01:04 | ED PDOC ---
Arrival/HPI - General Chief Complaint: High Blood Sugar Time Seen by Provider: 03/12/17 23:43 Historian: Patient - History of Present Illness Narrative History of Present Illness (Text): 03/13/17 01:01 Merrick Goldberg is a 66 year old female, whose past medical history includes hypertension, diabetes, and hyperlipidemia, who presents to the ED complaining of high blood sugar. Relative states patient has been experiencing high blood sugar since yesterday morning, states patient's blood sugar was 472 at 17:00 after taking her insulin. Patient states she feels fine and denies any chest pain, shortness of breath, headache, fever, chills, cough, nausea, vomiting, diarrhea, abdominal pain, dizziness, or any other complaints. Time/Duration: Other (today) Symptom Onset: Gradual Symptom Course: Unchanged Activities at Onset: Rest, Light Context: Home Past Medical History - Provider Review Nursing Documentation Reviewed: Yes - Infectious Disease Hx of Infectious Diseases: None - Reproductive Menopause: Yes - Cardiac Hx Cardiac Disorders: Yes Hx Hypertension: Yes - Pulmonary Hx Respiratory Disorders: No Hx Chronic Obstructive Pulmonary Disease (COPD): No Hx Pneumonia: No - Neurological HX Cerebrovascular Accident: Yes - HEENT Hx HEENT Disorder: No - Renal Hx Renal Disorder: No Hx Renal Failure: No - Endocrine/Metabolic Hx Diabetes Mellitus Type 2: Yes - Hematological/Oncological Hx Blood Disorders: No Hx Cancer: No - Integumentary Hx Dermatological Disorder: No - Musculoskeletal/Rheumatological Hx Arthritis: Yes - Gastrointestinal Hx Gastrointestinal Disorders: No Hx Gastroesophageal Reflux: No - Genitourinary/Gynecological Hx Genitourinary Disorders: No Hx Reproductive Disorders: No - Psychiatric Hx Psychophysiologic Disorder: No Hx Substance Use: No Other/Comment: dementia - Surgical History Hx Cardiac Catheterization: Yes (MANY MANY YEARS AGO) Hx Coronary Stent: Yes (DAUGHTER THINKS SO , BUT NOT SURE) - Anesthesia Hx Anesthesia: No Hx Anesthesia Reactions: No Hx Malignant Hyperthermia: No Family/Social History - Physician Review Nursing Documentation Reviewed: Yes Family/Social History: Unknown Family HX Smoking Status: Heavy Smoker > 10 Cigarettes Daily Hx Alcohol Use: No Hx Substance Use: No Allergies/Home Meds Allergies/Adverse Reactions: Allergies No Known Allergies Allergy (Verified 03/13/17 00:22) Review of Systems - Physician Review All systems were reviewed & negative as marked: Yes - Review of Systems Constitutional: Normal. absent: Fevers Eyes: Normal ENT: Normal Respiratory: Normal. absent: SOB, Cough Cardiovascular: Normal. absent: Chest Pain Gastrointestinal: Normal. absent: Abdominal Pain, Diarrhea, Nausea, Vomiting Genitourinary Female: Normal. absent: Dysuria, Frequency, Hematuria, Urine Output Changes Musculoskeletal: Normal. absent: Back Pain, Neck Pain Skin: Normal. absent: Rash Neurological: Normal. absent: Headache, Dizziness Endocrine: Other (+high blood sugar) Hemo/Lymphatic: Normal Psychiatric: Normal Physical Exam Vital Signs Reviewed: Yes Vital Signs Temp Pulse Resp BP Pulse Ox 03/13/17 03:00 65 17 140/70 100 03/13/17 02:30 68 17 145/71 99 03/13/17 00:55 98.1 F 62 17 143/52 L 99 Temperature: Afebrile Blood Pressure: Normal Pulse: Regular Respiratory Rate: Normal Appearance: Positive for: Well-Appearing, Non-Toxic, Comfortable Pain Distress: None Mental Status: Positive for: Alert and Oriented X 3 Finger Stick Blood Glucose: 164 - Systems Exam Head: Present: Atraumatic, Normocephalic Pupils: Present: PERRL Extroacular Muscles: Present: EOMI Conjunctiva: Present: Normal Mouth: Present: Moist Mucous Membranes Neck: Present: Normal Range of Motion Respiratory/Chest: Present: Clear to Auscultation, Good Air Exchange. No: Respiratory Distress, Accessory Muscle Use Cardiovascular: Present: Regular Rate and Rhythm, Normal S1, S2. No: Murmurs Abdomen: Present: Normal Bowel Sounds. No: Tenderness, Distention, Peritoneal Signs Upper Extremity: Present: Normal Inspection. No: Cyanosis, Edema Lower Extremity: Present: Normal Inspection. No: Edema Neurological: Present: GCS=15, CN II-XII Intact, Speech Normal Skin: Present: Warm, Dry, Normal Color. No: Rashes Psychiatric: Present: Alert, Oriented x 3, Normal Insight, Normal Concentration Medical Decision Making ED Course and Treatment: 03/13/17 01:01 Impression: 66 year old female c/o high blood sugar since yesterday. Differential Diagnosis included but are not limited to: hyperglycemia vs. diabetes Plan: -- Labs -- Reassess and disposition Progress Notes: 03/13/17 03:05 On re-evaluation, patient is well-appearing, in no acute distress. Patient is resting comfortably, and is in no acute distress. Patient was instructed to follow up with PMD in this week for further evaluation. - Lab Interpretations Lab Results: 03/13/17 01:45 03/13/17 01:45 Lab Results 03/13/17 01:45: WBC 7.7 D, RBC 3.59, Hgb 10.2 L, Hct 30.4 L, MCV 84.7, MCH 28.4 , MCHC 33.6, RDW 13.2, Plt Count 260, MPV 10.5 03/13/17 01:45: Sodium 142, Potassium 4.0, Chloride 107, Carbon Dioxide 26, Anion Gap 13, BUN 24 H, Creatinine 0.7, Est GFR ( Amer) > 60, Est GFR ( Non-Af Amer) > 60, Random Glucose 131 H, Calcium 9.4, Total Bilirubin 0.2, AST 25, ALT 42, Alkaline Phosphatase 76, Total Protein 7.5, Albumin 4.2, Globulin 3.4, Albumin/Globulin Ratio 1.2 - Scribe Statement The provider has reviewed the documentation as recorded by the Stephanie Gonzalez Provider Attestation: All medical record entries made by the Leandroibmahendra were at my direction and personally dictated by me. I have reviewed the chart and agree that the record accurately reflects my personal performance of the history, physical exam, medical decision making, and the department course for this patient. I have also personally directed, reviewed, and agree with the discharge instructions and disposition. Disposition/Present on Arrival - Present on Arrival Any Indicators Present on Arrival: No History of DVT/PE: No History of Uncontrolled Diabetes: No Urinary Catheter: No History of Decub. Ulcer: No History Surgical Site Infection Following: None - Disposition Have Diagnosis and Disposition been Completed?: Yes Diagnosis: DM2 (diabetes mellitus, type 2) Disposition: HOME/ ROUTINE Disposition Time: 03:09 Patient Plan: Discharge Patient Problems: Current Active Problems Problem Status Onset DM2 (diabetes mellitus, type 2) Chronic Condition: GOOD Discharge Instructions (ExitCare): Diabetes Mellitus Type 2 in Adults (ED) Additional Instructions: Continue current meds/monitor blood sugar as usual/follow up with your doctor this week Referrals: Avelino Greenfield [Primary Care Provider] - Follow up with primary
[2017-03-13 02:07] LABS: HEMOGLOBIN 10.2 gm/dL (12.0-16.0); MEAN CELL VOLUME 84.7 fL (80.0-105.0); MEAN CORPUSCULAR HEMOGLOBIN 28.4 pg (25.0-35.0); MEAN CORPUSCULAR HGB CONC 33.6 g/dl (31.0-37.0); MEAN PLATELET VOLUME 10.5 fl (7.0-11.0); RBC 3.59 10^6/uL (3.5-6.1); RED CELL DISTRIBUTION WIDTH 13.2 % (11.5-14.5); WHITE BLOOD COUNT 7.7 10^3/ul (4.5-11.0)
[2017-03-13 02:14] LABS: ALB/GLOB RATIO 1.2 (1.1-1.8); ALBUMIN 4.2 g/dL (3.0-4.8); ALT/SGPT 42 U/L (7-56); AST/SGOT 25 U/L (15-39); BLOOD UREA NITROGEN 24 mg/dL (7-21); CALCIUM 9.4 mg/dL (8.4-10.5); GFR AFRICAN-AMERICAN > 60; GFR NON-AFRICAN AMERICAN > 60
[2017-03-13 03:23] VITALS: BP 140/70; PULSE 65; O2SAT 100
== END 2017-03-13 03:00 | disposition home or self-care (01) ==
LOC: ED 23:39
DX: E11.9 Type 2 diabetes mellitus without complications (principal); I10 Essential (primary) hypertension; E78.5 Hyperlipidemia, unspecified; F17.210 Nicotine dependence, cigarettes, uncomplicated

== ENCOUNTER 2017-04-27 18:43 | Observation (INO) | payer MEDICARE, MEDICAID ==
--- NOTE | 2017-04-27 19:17 | ED PDOC ---
Arrival/HPI - General Chief Complaint: Chest Pain Time Seen by Provider: 04/27/17 19:10 - History of Present Illness Narrative History of Present Illness (Text): 04/27/17 19:16 Patient with a history of diabetes, hypertension, dementia. Patient brought in by her daughter stating that she had an episode of chest discomfort and shortness of breath earlier today. States that mother cannot provide any further history. Past Medical History - Provider Review Nursing Documentation Reviewed: Yes - Infectious Disease Hx of Infectious Diseases: None - Cardiac Hx Cardiac Disorders: Yes Hx Hypertension: Yes - Pulmonary Hx Respiratory Disorders: No Hx Chronic Obstructive Pulmonary Disease (COPD): No Hx Pneumonia: No - Neurological HX Cerebrovascular Accident: Yes - HEENT Hx HEENT Disorder: No - Renal Hx Renal Disorder: No Hx Renal Failure: No - Endocrine/Metabolic Hx Diabetes Mellitus Type 2: Yes - Hematological/Oncological Hx Blood Disorders: Yes - Integumentary Hx Dermatological Disorder: No - Musculoskeletal/Rheumatological Hx Arthritis: Yes - Gastrointestinal Hx Gastrointestinal Disorders: (c/o difficulty swallowing) - Genitourinary/Gynecological Hx Genitourinary Disorders: Yes - Psychiatric Hx Psychophysiologic Disorder: No Hx Substance Use: No Other/Comment: dementia - Surgical History Hx Cardiac Catheterization: Yes (MANY MANY YEARS AGO) Hx Coronary Stent: Yes (DAUGHTER THINKS SO , BUT NOT SURE) - Anesthesia Hx Anesthesia: No Hx Anesthesia Reactions: No Hx Malignant Hyperthermia: No Family/Social History Family/Social History: Unknown Family HX Smoking Status: Heavy Smoker > 10 Cigarettes Daily Hx Alcohol Use: No Hx Substance Use: No Allergies/Home Meds Allergies/Adverse Reactions: Allergies No Known Allergies Allergy (Verified 03/13/17 00:22) Home Medications: Home Meds Medication Instructions Recorded Confirmed Donepezil [Aricept] 10 mg PO HS 04/27/17 04/27/17 Insulin Detemir [Levemir] 10 unit SC BID 04/27/17 04/27/17 Review of Systems - Review of Systems Systems not reviewed;Unavailable: Dementia Physical Exam Vital Signs Reviewed: Yes Vital Signs Temp Pulse Resp BP Pulse Ox 04/27/17 19:01 98.4 F 63 15 142/62 100 Temperature: Afebrile Blood Pressure: Normal Pulse: Regular Respiratory Rate: Normal Appearance: Positive for: Well-Appearing, Non-Toxic, Comfortable Pain Distress: None Mental Status: No: Agitated, Lethargic, Comatose Finger Stick Blood Glucose: 283 - Systems Exam Head: Present: Atraumatic, Normocephalic Pupils: Present: PERRL Extroacular Muscles: Present: EOMI Conjunctiva: Present: Normal Mouth: Present: Moist Mucous Membranes Neck: Present: Normal Range of Motion. No: Meningeal Signs, MIDLINE TENDERNESS Respiratory/Chest: Present: Clear to Auscultation, Good Air Exchange. No: Respiratory Distress, Accessory Muscle Use, Wheezes, Decreased Breath Sounds Cardiovascular: Present: Regular Rate and Rhythm, Normal S1, S2. No: Murmurs Abdomen: Present: Normal Bowel Sounds. No: Tenderness, Distention, Peritoneal Signs, Rebound, Guarding Back: Present: Normal Inspection. No: Midline Tenderness, Paraspinal Tenderness Upper Extremity: Present: Normal Inspection. No: Cyanosis, Edema Lower Extremity: Present: Normal Inspection. No: Edema Neurological: Present: GCS=15, CN II-XII Intact, Speech Normal, Other (No focal neurological deficits) Skin: Present: Warm ( because), Dry, Normal Color. No: Rashes Psychiatric: Present: Alert. No: Anxious, Agitated Medical Decision Making ED Course and Treatment: Previous records reviewed, patient was admitted on 02/11/17 with altered mental status. Based on discharge note, it was thought likely to be due to TIA versus transient hypotension. 66-year-old female with episodes of chest discomfort throughout the day. Currently asymptomatic and denies complaints. Aspirin given. No acute findings on physical examination. Chest xray interpreted by ED physician shows no pneumothorax, no cardiomegaly, no infiltrates EKG interpreted by ER physician. Normal sinus. No ST-segment elevations. Normal intervals. Patient and daughter are aware of and agree with plan telemetry overnight for further evaluation. 04/27/17 23:12 dw medical observer and Dr. Frank, accepted tele/obs pt pain free and in no distress - Lab Interpretations Lab Results: 04/27/17 17:40 04/27/17 17:40 Lab Results 04/27/17 22:08: POC Glucose (mg/dL) 256 H 04/27/17 17:40: PT 10.9, INR 1.01, APTT 24.7 04/27/17 17:40: Sodium 141, Potassium 4.6, Chloride 104, Carbon Dioxide 26, Anion Gap 16, BUN 18, Creatinine 0.7, Est GFR ( Amer) > 60, Est GFR (Non- Af Amer) > 60, Random Glucose 245 H, Calcium 9.4, Total Bilirubin 0.3, AST 25, ALT 37, Alkaline Phosphatase 76, Lactate Dehydrogenase 447, Total Creatine Kinase 54, Troponin I < 0.01, Total Protein 6.6, Albumin 4.0, Globulin 2.6, Albumin/Globulin Ratio 1.6 04/27/17 17:40: WBC 7.4, RBC 3.31 L, Hgb 9.2 L, Hct 28.0 L, MCV 84.6, MCH 27.8, MCHC 32.9, RDW 13.5, Plt Count 244, MPV 10.2, Gran % 47.5 L, Lymph % (Auto) 44.1 H, [place] % (Auto) 6.3 H, Eos % (Auto) 1.6, Baso % (Auto) 0.5, Gran # 3.53, Lymph # 3.3, [place] # 0.5, Eos # 0.1, Baso # 0.04 - RAD Interpretation Radiology Orders: 04/27/17 19:25 CHEST PORTABLE [RAD] Stat - Medication Orders Current Medication Orders: Aspirin (Ecotrin) 81 mg PO DAILY [facility] Atorvastatin Calcium (Lipitor) 40 mg PO HS [facility] Last Admin: 04/27/17 22:15 Dose: 40 mg Donepezil HCl (Aricept) 10 mg PO HS [facility] Last Admin: 04/27/17 22:28 Dose: 10 mg Insulin Detemir (Levemir) 10 unit SC BID [facility] Insulin Human Regular (Humulin R Low) [address] [facility] PRN Reason: Protocol Last Admin: 04/27/17 22:09 Dose: Not Given Non-Admin Reason: Blood Sugar Parameter Comments: 256 bedtime insulin = none Lisinopril (Zestril) 5 mg PO DAILY [facility] Polysaccharide Iron Complex (Ferrex-150) 150 mg PO DAILY [facility] Discontinued Medications Aspirin (Aspirin Chewable) 324 mg PO STAT [facility] Stop: 04/27/17 19:46 Last Admin: 04/27/17 20:25 Dose: 324 mg Pantoprazole Sodium (Protonix Ec Tab) 40 mg PO ONCE ONE Stop: 04/27/17 23:01 Disposition/Present on Arrival - Present on Arrival Any Indicators Present on Arrival: No History of DVT/PE: No History of Uncontrolled Diabetes: No Urinary Catheter: No History of Decub. Ulcer: No History Surgical Site Infection Following: None - Disposition Have Diagnosis and Disposition been Completed?: Yes Diagnosis: Chest pain Disposition: HOSPITALIZED Disposition Time: 20:45 Patient Plan: Observation Patient Problems: Current Active Problems Problem Status Onset Chest pain Acute Condition: FAIR Discharge Instructions (ExitCare): Chest Pain (ED) Referrals: Avelino Greenfield [Primary Care Provider] - Follow up with primary Forms: [employer] (Honduran)
[2017-04-27 19:48] LABS: ADD MANUAL DIFF? NO
[2017-04-27 19:59] LABS: BASO # 0.04 K/mm3 (0.0-2.0); BASO % 0.5 % (0.0-3.0); EOS # 0.1 (0.0-0.7); EOS % 1.6 % (1.5-5.0); GRAN # 3.53 (1.4-6.5); GRAN % 47.5 % (50.0-68.0); LYMPH # 3.3 (1.2-3.4); LYMPH % 44.1 % (22.0-35.0); MEAN CELL VOLUME 84.6 fl (80.0-105.0); MEAN CORPUSCULAR HEMOGLOBIN 27.8 pg (25.0-35.0); MEAN CORPUSCULAR HGB CONC 32.9 g/dl (31.0-37.0); MEAN PLATELET VOLUME 10.2 fl (7.0-11.0); MONO # 0.5 (0.1-0.6); MONO % 6.3 % (1.0-6.0); PLATELET COUNT 244 10^3/uL (120.0-450.0); RED CELL DISTRIBUTION WIDTH 13.5 % (11.5-14.5); WHITE BLOOD COUNT 7.4 10^3/ul (4.5-11.0)
[2017-04-27 20:07] LABS: ALB/GLOB RATIO 1.6 (1.1-1.8); ALKALINE PHOSPHATASE 76 U/L (38-133); ALT/SGPT 37 U/L (7-56); AST/SGOT 25 U/L (15-39); BILIRUBIN,TOTAL 0.3 mg/dL (0.2-1.3); BLOOD UREA NITROGEN 18 mg/dL (7-21); CALCIUM 9.4 mg/dL (8.4-10.5); CARBON DIOXIDE 26 mmol/L (21-33); CHLORIDE 104 mmol/L (95-110); GFR AFRICAN-AMERICAN > 60; GLUCOSE,RANDOM 245 mg/dL (70-110); POTASSIUM 4.6 mmol/L (3.6-5.0); SODIUM 141 mmol/L (132-148); TOTAL PROTEIN 6.6 g/dL (5.8-8.3)
[2017-04-27 20:10] LABS: INR 1.01 (0.93-1.08); PARTIAL THROMBOPLASTIN TIME 24.7 Seconds (23.7-30.8)
[2017-04-27 20:27] LABS: TROPONIN I < 0.01 ng/mL
--- NOTE | 2017-04-27 21:49 | CP.PCM.HP ---
<Catalino Hendricks - Last Filed: 04/27/17 23:02> History of Present Illness - History of Present Illness History of Present Illness: Catalino Hendricks D.O. PGY-1, Internal Medicine, Night Float H&P CC: chest pain for 1 day 66 year old female with a past medical history of DM II, HTN, CVA, and dementia who present to [facility] for 1 day onset of left sided chest pain and associated SOB. The history was obtained from the patient, the ED physician, and the use of a voice press officer. The patient is an unreliable historian. When personally examined, daughter was not at bedside, and patient did not wish to elaborate on her symptoms. Patient only states that she had CP " for only a little while." Patient notably confused and unable to provide any more details. She denies having any symptoms at this time, but admits to having emotional stressors at home, which she will not disclose the specifics to either me or the press officer. She denies CP, SOB, diaphoresis, N/V/D, or paresthesias. PMD: Avelino Bolaños PMH: Dementia, CVA (last documented one was in September 2016), DM, hyperlipidemia , and hypertension PSH: Patient denied any surgical history Soc History: 100 pack year history; Denies Alchohol use; Denies illicit drug use. She lives at home with her daughter Fam History: DM, Hypertension, CAD in multiple family members Meds: reviewed Allergies:NKDA Present on Admission - Present on Admission Any Indicators Present on Admission: No Review of Systems - Constitutional Constitutional: As Per HPI Past Patient History - Infectious Disease Hx of Infectious Diseases: None - Past Medical History & Family History Past Medical History?: Yes - Past Social History Smoking Status: Heavy Smoker > 10 Cigarettes Daily - CARDIAC Hx Cardiac Disorders: Yes Hx Hypertension: Yes - PULMONARY Hx Respiratory Disorders: No Hx Chronic Obstructive Pulmonary Disease (COPD): No Hx Pneumonia: No - NEUROLOGICAL HX Cerebrovascular Accident: Yes - HEENT Hx HEENT Problems: No - RENAL Hx Chronic Kidney Disease: No Hx Renal Failure: No - ENDOCRINE/METABOLIC Hx Diabetes Mellitus Type 2: Yes - HEMATOLOGICAL/ONCOLOGICAL Hx Blood Disorders: Yes - INTEGUMENTARY Hx Dermatological Problems: No - MUSCULOSKELETAL/RHEUMATOLOGICAL Hx Arthritis: Yes - GASTROINTESTINAL Hx Gastrointestinal Disorders: (c/o difficulty swallowing) - GENITOURINARY/GYNECOLOGICAL Hx Genitourinary Disorders: Yes - PSYCHIATRIC Hx Psychophysiologic Disorder: No Hx Substance Use: No Other/Comment: dementia - SURGICAL HISTORY Hx Cardiac Catheterization: Yes (MANY MANY YEARS AGO) Hx Coronary Stent: Yes (DAUGHTER THINKS SO , BUT NOT SURE) - ANESTHESIA Hx Anesthesia: No Hx Anesthesia Reactions: No Hx Malignant Hyperthermia: No Meds Allergies/Adverse Reactions: Allergies Allergy/AdvReac Type Severity Reaction Status Date / Time No Known Allergies Allergy Verified 03/13/17 00:22 Physical Exam - Constitutional Appears: No Acute Distress, Unkempt, Older Than Stated Age - Head Exam Head Exam: ATRAUMATIC, NORMOCEPHALIC - Eye Exam Eye Exam: EOMI, Normal appearance, PERRL - ENT Exam ENT Exam: Mucous Membranes Moist, Normal Oropharynx - Neck Exam Neck exam: Positive for: Normal Inspection. Negative for: Thyromegaly - Respiratory Exam Respiratory Exam: Rhonchi (bilareally), NORMAL BREATHING PATTERN. absent: Wheezes - Cardiovascular Exam Cardiovascular Exam: RRR, +S1, +S2 - GI/Abdominal Exam GI & Abdominal Exam: Normal Bowel Sounds, Soft. absent: Distended, Guarding, Rebound - Exam Exam: absent: Bladder Distension - Extremities Exam Extremities exam: Positive for: pedal pulses present. Negative for: calf tenderness, pedal edema - Back Exam Back exam: NORMAL INSPECTION - Neurological Exam Neurological exam: Alert, CN II-XII Intact - Psychiatric Exam Psychiatric exam: Normal Affect, Normal Mood - Skin Skin Exam: Dry, Intact, Normal Color, Warm Results - Vital Signs Recent Vital Signs: Last Vital Signs Temp 98.4 F 04/27/17 19:01 Pulse 63 04/27/17 19:01 Resp 15 04/27/17 19:01 BP 142/62 04/27/17 19:01 Pulse Ox 100 04/27/17 19:01 - Labs Result Diagrams: 04/27/17 17:40 04/27/17 17:40 Labs: Laboratory Results - last 24 hr 04/27/17 04/27/17 04/27/17 17:40 17:40 17:40 WBC 7.4 RBC 3.31 L Hgb 9.2 L Hct 28.0 L MCV 84.6 MCH 27.8 MCHC 32.9 RDW 13.5 Plt Count 244 MPV 10.2 Gran % 47.5 L Lymph % (Auto) 44.1 H [place] % (Auto) 6.3 H Eos % (Auto) 1.6 Baso % (Auto) 0.5 Gran # 3.53 Lymph # 3.3 [place] # 0.5 Eos # 0.1 Baso # 0.04 PT 10.9 INR 1.01 APTT 24.7 Sodium 141 Potassium 4.6 Chloride 104 Carbon Dioxide 26 Anion Gap 16 BUN 18 Creatinine 0.7 Est GFR ( Amer) > 60 Est GFR (Non-Af Amer) > 60 Random Glucose 245 H Calcium 9.4 Total Bilirubin 0.3 AST 25 ALT 37 Alkaline Phosphatase 76 Lactate Dehydrogenase 447 Total Creatine Kinase 54 Troponin I < 0.01 Total Protein 6.6 Albumin 4.0 Globulin 2.6 Albumin/Globulin Ratio 1.6 - EKG Data EKG shows normal: Sinus rhythm Rate: Normal - EKG Data EKG comments: LVH with strain, incomplete RBBB, LAFB - Imaging and Cardiology Chest x-ray Additional comment: no significant changes compared to prior Assessment & Plan - Assessment and Plan (Free Text) Assessment: 66 yo female with a PMH of HTN, HLP, CVA, and dementia who presents with chest pain and associated SOB. Initial work up for ACS reveals (-) troponin X1, EKG no acute findings. Patient is admitted for observation and further cardiac work- up. Plan: 1) CP R/O ACS - Diabetic patient with hyperlipidemia and 100 pack year of smoking history, poss ACS - Initial EKG showed no ST-T wave changes and is stable compared to prior - Initial troponin I (-) x1, will follow trend - CXR shows no new findings compared to prior - Cardiology consulted - 324 mg of chewable aspirin given in ED - 81 mg Aspirin in AM - C/W 40 mg Lipitor HS 2) DM2 - Metformin held - HgbA1c ordered - In ED, BSG was 245, will start patient's hs dose of Levemir - ISS low - HHD with low carbohydrate diet 3) Hypertension - Currenly, patient is normotensive - C/W home Lisinopril 5 mg in AM 4) Dementia -Poss acute component, UA ordered - C/W Donazepil 10 mg hs 5) Dyslipidemia: - Lipid panel ordered - C/W Lipitor 40 mg HS GI/DVT ppx: 40 mg Protonix and SCD Patient was seen and examined and case was discussed at length with attending physician. - Date & Time Date: 04/27/17 Time: 22:17 <Sami Frank - Last Filed: 04/28/17 01:56> Results - Vital Signs Recent Vital Signs: Last Vital Signs Temp 98.4 F 04/27/17 19:01 Pulse 63 04/27/17 19:01 Resp 15 04/27/17 19:01 BP 142/62 04/27/17 19:01 Pulse Ox 100 04/27/17 19:01 - Labs Result Diagrams: 04/27/17 17:40 04/27/17 17:40 Attending/Attestation - Attestation I have personally seen and examined this patient.: Yes I have fully participated in the care of the patient.: Yes I have reviewed all pertinent clinical information: Yes Notes (Text): 04/28/17 01:55 Patient was seen when she was in bed # 5 in the ER. Agree with history, physical examination ,assessment and plan.
[2017-04-27] MEDS: Insulin Reg-LOW-Coverage SC SCH (22:09)
[2017-04-27] MEDS ORDERED: Pantoprazole 40 mg EC Tab PO ONE (23:00)
[2017-04-27 23:08] LABS: CHOLESTEROL 169 mg/dL (130-200)
[2017-04-27] MEDS: Insulin Detemir 100 units/ml Vial (Levemir) SC SCH (23:11)
[2017-04-27 23:45] LABS: URINE BILIRUBIN NEGATIVE (NEGATIVE); URINE BLOOD NEGATIVE (NEGATIVE); URINE GLUCOSE (UA) 100 mg/dL (NEGATIVE); URINE KETONE NEGATIVE (NEGATIVE); URINE LEUKOCYTE ESTERASE SMALL Leu/uL (NEGATIVE); URINE PROTEIN NEGATIVE mg/dL (<30 mg/dL); URINE UROBILINOGEN 0.2 E.U./dL (<1 E.U./dL)
[2017-04-27 23:57] LABS: URINE APPEARANCE CLEAR (CLEAR); URINE COLOR STRAW (YELLOW)
[2017-04-28 00:03] LABS: URINE BACTERIA RARE (NEG); URINE EPITHELIAL CELLS 0 - 2 /hpf (0-5); URINE RBC 0 - 2 /hpf (0-2)
[2017-04-28 03:15] VITALS: BMI 31.8
[2017-04-28 06:10] VITALS: O2SAT 99
--- NOTE | 2017-04-28 08:18 | RAD ---
HISTORY: chest pain COMPARISON: Comparison is made to 01/17/2017 FINDINGS: LUNGS: No active pulmonary disease. PLEURA: No significant pleural effusion identified, no pneumothorax apparent. CARDIOVASCULAR: Normal. OSSEOUS STRUCTURES: No significant abnormalities. VISUALIZED UPPER ABDOMEN: Normal. OTHER FINDINGS: None. IMPRESSION: No evidence of new infiltrate or consolidation in the lungs. Thoracic inlet opacity is again noted may represent enlarged thyroid.
[2017-04-28] MEDS: Insulin Reg-LOW-Coverage SC SCH ×3 (08:22→17:10)
--- NOTE | 2017-04-28 09:38 | CARD ---
APPROVED REPORT EKG Measurement Heart [id number] <Conclusion> Normal sinus rhythm Possible Left atrial enlargement Incomplete right bundle branch block Left anterior fascicular block Left ventricular hypertrophy ST abnormality, possible digitalis effect Abnormal ECG
[2017-04-28] MEDS ORDERED: Iron Complex Polysacch 150mg Cap PO SCH (10:00)
[2017-04-28] MEDS: Insulin Detemir 100 units/ml Vial (Levemir) SC SCH ×2 (10:50→17:10)
[2017-04-28 12:12] VITALS: BP 155/67; PULSE 59; RESP 18; TEMP 98.1
--- NOTE | 2017-04-28 12:49 | CP.PCM.DIS ---
<LILIAM MENG - Last Filed: 04/28/17 12:37> Provider - Provider Date of Admission: 04/27/17 23:13 Attending physician: Farzad Poole MD Primary care physician: Avelino Greenfield MD Consults: Cardio: Danilo Time Spent in preparation of Discharge (in minutes): 45 Hospital Course - Lab Results Lab Results: Most Recent Lab Values WBC 7.4 10^3/ul (4.5-11.0) 04/27/17 17:40 RBC 3.31 10^6/uL (3.5-6.1) L 04/27/17 17:40 Hgb 9.2 g/dL (12.0-16.0) L 04/27/17 17:40 Hct 28.0 % (36.0-48.0) L 04/27/17 17:40 MCV 84.6 fl (80.0-105.0) 04/27/17 17:40 MCH 27.8 pg (25.0-35.0) 04/27/17 17:40 MCHC 32.9 g/dl (31.0-37.0) 04/27/17 17:40 RDW 13.5 % (11.5-14.5) 04/27/17 17:40 Plt Count 244 10^3/uL (120.0-450.0) 04/27/17 17:40 MPV 10.2 fl (7.0-11.0) 04/27/17 17:40 Gran % 47.5 % (50.0-68.0) L 04/27/17 17:40 Lymph % (Auto) 44.1 % (22.0-35.0) H 04/27/17 17:40 [place] % (Auto) 6.3 % (1.0-6.0) H 04/27/17 17:40 Eos % (Auto) 1.6 % (1.5-5.0) 04/27/17 17:40 Baso % (Auto) 0.5 % (0.0-3.0) 04/27/17 17:40 Gran # 3.53 (1.4-6.5) 04/27/17 17:40 Lymph # 3.3 (1.2-3.4) 04/27/17 17:40 [place] # 0.5 (0.1-0.6) 04/27/17 17:40 Eos # 0.1 (0.0-0.7) 04/27/17 17:40 Baso # 0.04 K/mm3 (0.0-2.0) 04/27/17 17:40 PT 10.9 Seconds (9.9-11.8) 04/27/17 17:40 INR 1.01 (0.93-1.08) 04/27/17 17:40 APTT 24.7 Seconds (23.7-30.8) 04/27/17 17:40 Sodium 141 mmol/L (132-148) 04/27/17 17:40 Potassium 4.6 mmol/L (3.6-5.0) 04/27/17 17:40 Chloride 104 mmol/L (95-110) 04/27/17 17:40 Carbon Dioxide 26 mmol/L (21-33) 04/27/17 17:40 Anion Gap 16 (10-20) 04/27/17 17:40 BUN 18 mg/dL (7-21) 04/27/17 17:40 Creatinine 0.7 mg/dL (0.5-1.4) 04/27/17 17:40 Est GFR ( Amer) > 60 04/27/17 17:40 Est GFR (Non-Af Amer) > 60 04/27/17 17:40 POC Glucose (mg/dL) 143 mg/dL (65-110) H 04/28/17 07:13 Random Glucose 245 mg/dL (70-110) H 04/27/17 17:40 Calcium 9.4 mg/dL (8.4-10.5) 04/27/17 17:40 Total Bilirubin 0.3 mg/dL (0.2-1.3) 04/27/17 17:40 AST 25 U/L (15-39) 04/27/17 17:40 ALT 37 U/L (7-56) 04/27/17 17:40 Alkaline Phosphatase 76 U/L (38-133) 04/27/17 17:40 Lactate Dehydrogenase 447 U/L (333-699) 04/27/17 17:40 Total Creatine Kinase 54 U/L (35-230) 04/27/17 17:40 Troponin I < 0.01 ng/mL 04/28/17 11:39 Total Protein 6.6 g/dL (5.8-8.3) 04/27/17 17:40 Albumin 4.0 g/dL (3.0-4.8) 04/27/17 17:40 Globulin 2.6 gm/dL 04/27/17 17:40 Albumin/Globulin Ratio 1.6 (1.1-1.8) 04/27/17 17:40 Triglycerides 130 mg/dL (35-160) 04/27/17 17:40 Cholesterol 169 mg/dL (130-200) 04/27/17 17:40 LDL Cholesterol Direct 61 mg/dL (0-129) 04/27/17 17:40 HDL Cholesterol 84 mg/dL (29-60) H 04/27/17 17:40 Urine Color Straw (YELLOW) 04/27/17 20:10 Urine Appearance Clear (CLEAR) 04/27/17 20:10 Urine pH 7.0 (4.7-8.0) 04/27/17 20:10 Ur Specific [place] <= 1.005 (1.005-1.035) 04/27/17 20:10 Urine Protein Negative mg/dL (<30 mg/dL) 04/27/17 20:10 Urine Glucose (UA) 100 mg/dL (NEGATIVE) H 04/27/17 20:10 Urine Ketones Negative mg/dL (NEGATIVE) 04/27/17 20:10 Urine Blood Negative (NEGATIVE) 04/27/17 20:10 Urine Nitrate Negative (NEGATIVE) 04/27/17 20:10 Urine Bilirubin Negative (NEGATIVE) 04/27/17 20:10 Urine Urobilinogen 0.2 E.U./dL (<1 E.U./dL) 04/27/17 20:10 Ur Leukocyte Esterase Small Kae/uL (NEGATIVE) H 04/27/17 20:10 Urine RBC 0 - 2 /hpf (0-2) 04/27/17 20:10 Urine WBC 1 - 3 /hpf (0-6) 04/27/17 20:10 Ur Epithelial Cells 0 - 2 /hpf (0-5) 04/27/17 20:10 Urine Bacteria Rare (NEG) 04/27/17 20:10 - Hospital Course Hospital Course: 66 year old female with a past medical history of DM II, HTN, CVA, and dementia who present to [facility] for 1 day onset of left sided chest pain and associated SOB. The history was obtained from the patient, the ED physician, and the use of a voice sand filler. The patient is an unreliable historian. When personally examined, daughter was not at bedside, and patient did not wish to elaborate on her symptoms. Patient only states that she had CP " for only a little while." Patient notably confused and unable to provide any more details. She denies having any symptoms at this time, but admits to having emotional stressors at home, which she will not disclose the specifics to either me or the sand filler. She denies CP, SOB, diaphoresis, N/V/D, or paresthesias. In the ED, labs and imaging were ordered. Labs were remarkable for Hgb of 9.2, which is at her baseline and hyperglycemia in the 200's. Cardiac enzymes were negative, EKG showed NSR, and CXR was negative. Pt was admitted for chest pain to rule out ACS. Cardio was consulted and advised out-patient stress test. Today, pt was seen and examined at bedside. Pt denied CP, SOB, n/v/d, chills, fevers, abdominal pain, QUESADA, or dizziness. Follow-up cardiac enzymes x2 were negative. Pt will be discharged and home meds will be continued. 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 Discharge Exam - Head Exam Head Exam: ATRAUMATIC, NORMOCEPHALIC - Eye Exam Eye Exam: EOMI, PERRL - ENT Exam ENT Exam: Mucous Membranes Moist - Neck Exam Neck exam: Full Rom - Respiratory Exam Respiratory Exam: Clear to PA & Lateral. absent: Rales, Rhonchi, Wheezes - Cardiovascular Exam Cardiovascular Exam: RRR. absent: Diastolic murmur, Gallop, Rubs, Systolic Murmur - GI/Abdominal Exam GI & Abdominal Exam: Soft. absent: Firm, Guarding, Rebound, Tenderness - Extremities Exam Extremities exam: normal inspection - Back Exam Back exam: NORMAL INSPECTION - Neurological Exam Neurological exam: Alert, CN II-XII Intact, Oriented x3 - Psychiatric Exam Psychiatric exam: Normal Affect, Normal Mood - Skin Skin Exam: Dry, Intact, Normal Color, Warm Discharge Plan - Follow Up Plan Condition: FAIR Disposition: HOME/ ROUTINE Instructions: Chest Pain (DC), Chest Pain (GEN) Additional Instructions: 1. Follow up with Dr. Carrasco for out-patient stress test 2. Follow up with PMD within 1 week 3. Take medications as prescibed 4. Return to ED if chest pain and shortness of breath worsens Referrals: Avelino Greenfield [Primary Care Provider] - Marcia Carrasco MD [Staff Provider] - <Farzad Poole - Last Filed: 04/28/17 15:45> Provider - Provider Date of Admission: 04/27/17 23:13 Attending physician: Farzad Poole MD Primary care physician: Avelino Greenfield MD Hospital Course - Lab Results Lab Results: Most Recent Lab Values WBC 7.4 10^3/ul (4.5-11.0) 04/27/17 17:40 RBC 3.31 10^6/uL (3.5-6.1) L 04/27/17 17:40 Hgb 9.2 g/dL (12.0-16.0) L 04/27/17 17:40 Hct 28.0 % (36.0-48.0) L 04/27/17 17:40 MCV 84.6 fl (80.0-105.0) 04/27/17 17:40 MCH 27.8 pg (25.0-35.0) 04/27/17 17:40 MCHC 32.9 g/dl (31.0-37.0) 04/27/17 17:40 RDW 13.5 % (11.5-14.5) 04/27/17 17:40 Plt Count 244 10^3/uL (120.0-450.0) 04/27/17 17:40 MPV 10.2 fl (7.0-11.0) 04/27/17 17:40 Gran % 47.5 % (50.0-68.0) L 04/27/17 17:40 Lymph % (Auto) 44.1 % (22.0-35.0) H 04/27/17 17:40 [place] % (Auto) 6.3 % (1.0-6.0) H 04/27/17 17:40 Eos % (Auto) 1.6 % (1.5-5.0) 04/27/17 17:40 Baso % (Auto) 0.5 % (0.0-3.0) 04/27/17 17:40 Gran # 3.53 (1.4-6.5) 04/27/17 17:40 Lymph # 3.3 (1.2-3.4) 04/27/17 17:40 [place] # 0.5 (0.1-0.6) 04/27/17 17:40 Eos # 0.1 (0.0-0.7) 04/27/17 17:40 Baso # 0.04 K/mm3 (0.0-2.0) 04/27/17 17:40 PT 10.9 Seconds (9.9-11.8) 04/27/17 17:40 INR 1.01 (0.93-1.08) 04/27/17 17:40 APTT 24.7 Seconds (23.7-30.8) 04/27/17 17:40 Sodium 141 mmol/L (132-148) 04/27/17 17:40 Potassium 4.6 mmol/L (3.6-5.0) 04/27/17 17:40 Chloride 104 mmol/L (95-110) 04/27/17 17:40 Carbon Dioxide 26 mmol/L (21-33) 04/27/17 17:40 Anion Gap 16 (10-20) 04/27/17 17:40 BUN 18 mg/dL (7-21) 04/27/17 17:40 Creatinine 0.7 mg/dL (0.5-1.4) 04/27/17 17:40 Est GFR ( Amer) > 60 04/27/17 17:40 Est GFR (Non-Af Amer) > 60 04/27/17 17:40 POC Glucose (mg/dL) 143 mg/dL (65-110) H 04/28/17 07:13 Random Glucose 245 mg/dL (70-110) H 04/27/17 17:40 Hemoglobin A1c 10.9 % (4.2-6.5) H 04/27/17 17:40 Calcium 9.4 mg/dL (8.4-10.5) 04/27/17 17:40 Total Bilirubin 0.3 mg/dL (0.2-1.3) 04/27/17 17:40 AST 25 U/L (15-39) 04/27/17 17:40 ALT 37 U/L (7-56) 04/27/17 17:40 Alkaline Phosphatase 76 U/L (38-133) 04/27/17 17:40 Lactate Dehydrogenase 447 U/L (333-699) 04/27/17 17:40 Total Creatine Kinase 54 U/L (35-230) 04/27/17 17:40 Troponin I < 0.01 ng/mL 04/28/17 11:39 Total Protein 6.6 g/dL (5.8-8.3) 04/27/17 17:40 Albumin 4.0 g/dL (3.0-4.8) 04/27/17 17:40 Globulin 2.6 gm/dL 04/27/17 17:40 Albumin/Globulin Ratio 1.6 (1.1-1.8) 04/27/17 17:40 Triglycerides 130 mg/dL (35-160) 04/27/17 17:40 Cholesterol 169 mg/dL (130-200) 04/27/17 17:40 LDL Cholesterol Direct 61 mg/dL (0-129) 04/27/17 17:40 HDL Cholesterol 84 mg/dL (29-60) H 04/27/17 17:40 Urine Color Straw (YELLOW) 04/27/17 20:10 Urine Appearance Clear (CLEAR) 04/27/17 20:10 Urine pH 7.0 (4.7-8.0) 04/27/17 20:10 Ur Specific [place] <= 1.005 (1.005-1.035) 04/27/17 20:10 Urine Protein Negative mg/dL (<30 mg/dL) 04/27/17 20:10 Urine Glucose (UA) 100 mg/dL (NEGATIVE) H 04/27/17 20:10 Urine Ketones Negative mg/dL (NEGATIVE) 04/27/17 20:10 Urine Blood Negative (NEGATIVE) 04/27/17 20:10 Urine Nitrate Negative (NEGATIVE) 04/27/17 20:10 Urine Bilirubin Negative (NEGATIVE) 04/27/17 20:10 Urine Urobilinogen 0.2 E.U./dL (<1 E.U./dL) 04/27/17 20:10 Ur Leukocyte Esterase Small Kae/uL (NEGATIVE) H 04/27/17 20:10 Urine RBC 0 - 2 /hpf (0-2) 04/27/17 20:10 Urine WBC 1 - 3 /hpf (0-6) 04/27/17 20:10 Ur Epithelial Cells 0 - 2 /hpf (0-5) 04/27/17 20:10 Urine Bacteria Rare (NEG) 04/27/17 20:10 Attending/Attestation - Attestation I have personally seen and examined this patient.: Yes I have fully participated in the care of the patient.: Yes I have reviewed all pertinent clinical information, including history, physical exam and plan: Yes Notes (Text): 04/28/17 15:41 66 year old female with past medical history of diabetes, hypertension, CVA and dementia who presented with complaint of left sided chest pain. Serial cardiac enzymes were negative. Chest pain resolved. She was seen by cardiology who recommended outpatient stress test. Patient will be discharged home to follow up with pmd. Follow up with cardiology for outpatient stress test as per cardiology. Farzad Poole MD Hospitalist.
--- NOTE | 2017-04-29 03:58 | CON ---
DATE: 04/28/2017 LOCATION: The patient room#265, bed 2. REASON FOR CONSULTATION: Chest pain. HISTORY OF PRESENT ILLNESS: The patient is a 66-year-old female who has past medical history of hypertension, diabetes type 2, CVA, dementia who according to emergency room and hospital staff history, the patient has had one-day duration of chest pain. Now, I am asking the patient, she said I only had dizziness. She denied having any chest pain. The patient lying flat in bed without any chest pain, shortness of breath or palpitation. The patient probably is forgetful also because of dementia. PAST MEDICAL HISTORY: Dementia, CVA, diabetes mellitus, hyperlipidemia and hypertension. PAST SURGICAL HISTORY: The patient denies any previous surgical history. PERSONAL HISTORY: 100 packs per year, history of smoking. Denied alcohol. HOME MEDICATIONS: Included insulin Levemir 10 units subcu b.i.d., Ferrex 150 mg p.o. daily, metformin 1000 mg b.i.d., Aricept 10 mg at bedtime, Lipitor 40 mg daily, aspirin 81 mg daily, lisinopril probably 5 mg daily. ALLERGIES: THE PATIENT DENIES ALLERGIES. REVIEW OF SYSTEMS: All the systems reviewed, positive mentioned in history, others were negative. PHYSICAL EXAMINATION: VITAL SIGNS: Blood pressure 130/60, respirations 20, pulse 62 and temperature 98.6. HEENT: Head is normocephalic. Eyes, pupils normal and conjunctivae slightly pale. NECK: JVP low. Carotids equal. LUNGS: Thorax AP diameter normal. Lungs clear. CARDIOVASCULAR: S1 and S2. ABDOMEN: Soft. No tenderness. No organomegaly. Bowel sounds normal. EXTREMITIES: No clubbing. No cyanosis. LABORATORY DATA: WBC 7.4, hemoglobin 9.2, hematocrit 28.0 and platelets 244. Random sugar 143. Troponin x2 negative. Triglycerides 130, cholesterol 169, LDL 61 and HDL 84. Sodium 141, potassium 4.6, BUN 18 and creatinine 0.7. Chest x-ray clear. EKG showed normal sinus rhythm, left anterior hemiblock, incomplete right bundle-branch block. DIAGNOSIS: Chest pain on admission. Now, the patient denies that she has any chest pain. She states she has dizziness, that is why she is here. The patient is not reliable. She has a history of dementia, diabetes type 2, hypertension, cerebrovascular accident and hyperlipidemia. PLAN: The patient is on Aricept 10 mg at bedtime, aspirin 81 mg daily, Ferrex 150 mg p.o. daily, Levemir insulin 10 units b.i.d., Lipitor 40 mg daily, Protonix 40 mg daily and lisinopril 5 mg daily. We will continue current therapy and the patient is willing, so we will arrange a stress test as an outpatient. Clinically, right now, cardiac status seem to be stable. We will follow with you. Marcia Carrasco MD
== END 2017-04-28 20:37 | disposition home or self-care (01) ==
LOC: ED 18:43 → ERH 23:13 → 2RNO 04-28 00:36
PROVIDERS: ADMIT Hospitalist; ATTEND Internal Medicine
DX: R07.9 Chest pain, unspecified (principal); I10 Essential (primary) hypertension; F03.90 Unspecified dementia, unspecified severity, without behavioral disturbance, psychotic disturbance, mood disturbance, and anxiety; E11.65 Type 2 diabetes mellitus with hyperglycemia; E78.5 Hyperlipidemia, unspecified; I25.10 Atherosclerotic heart disease of native coronary artery without angina pectoris; Z87.891 Personal history of nicotine dependence; Z86.73 Personal history of transient ischemic attack (TIA), and cerebral infarction without residual deficits; Z79.4 Long term (current) use of insulin
CPT/HCPCS: 36415; 71010; 80053; 80061; 81001; 82550; 82948; 83036; 83615; 84484; 85025; 85610; 85730; 87086; 93005; 96372; 99285; G0378

== ENCOUNTER 2017-09-03 20:02 | Observation (INO) | payer MEDICAID, MEDICARE ==
[2017-09-03 20:30] VITALS: BMI 33.0
[2017-09-03] MEDS ORDERED: Sodium Chloride 0.9% 1,000 ML IV STA (20:32)
--- NOTE | 2017-09-03 20:34 | ED PDOC ---
Arrival/HPI - General Chief Complaint: Female Genitourinary Time Seen by Provider: 09/03/17 20:05 - History of Present Illness Narrative History of Present Illness (Text): 09/03/17 20:32 67 yo female, hx of htn, dm, dementia mildly confused baseline, presents with high blodo sugar and "uti". as per family, were told pt had a "bladder infection ". pt was told to see a urologist. family notes pt increasingly confused. no fevers, no cough no abdominal pain. no other complaints. Past Medical History - Infectious Disease Hx of Infectious Diseases: None - Cardiac Hx Hypertension: Yes - Pulmonary Hx Respiratory Disorders: No Hx Chronic Obstructive Pulmonary Disease (COPD): No Hx Pneumonia: No - Neurological Hx Seizures: Yes - HEENT Hx HEENT Disorder: No - Renal Hx Renal Disorder: No Hx Renal Failure: No - Endocrine/Metabolic Hx Diabetes Mellitus Type 2: Yes - Hematological/Oncological Hx Blood Disorders: Yes - Integumentary Hx Dermatological Disorder: No - Musculoskeletal/Rheumatological Hx Arthritis: Yes Hx Falls: Yes - Gastrointestinal Hx Gastrointestinal Disorders: (c/o difficulty swallowing) - Genitourinary/Gynecological Hx Genitourinary Disorders: Yes - Psychiatric Hx Psychophysiologic Disorder: No Hx Substance Use: No Other/Comment: dementia - Surgical History Hx Cardiac Catheterization: Yes (MANY MANY YEARS AGO) Hx Coronary Stent: Yes (DAUGHTER THINKS SO , BUT NOT SURE) - Anesthesia Hx Anesthesia: No Hx Anesthesia Reactions: No Hx Malignant Hyperthermia: No Family/Social History - Physician Review Nursing Documentation Reviewed: Yes Family/Social History: Unknown Family HX Smoking Status: Former Smoker Hx Alcohol Use: No Hx Substance Use: No Allergies/Home Meds Allergies/Adverse Reactions: Allergies No Known Allergies Allergy (Verified 03/13/17 00:22) Home Medications: Home Meds Medication Instructions Recorded Confirmed Donepezil [Aricept] 10 mg PO HS 04/27/17 09/03/17 Insulin Detemir [Levemir] 10 unit SC BID 04/27/17 09/03/17 Review of Systems - Review of Systems Constitutional: Normal Eyes: Normal ENT: Normal Respiratory: Normal Cardiovascular: Normal Gastrointestinal: Normal Genitourinary Female: Dysuria Musculoskeletal: Normal Skin: Normal Neurological: Normal Endocrine: Normal Hemo/Lymphatic: Normal Psychiatric: Normal Physical Exam Vital Signs Temp Pulse Resp BP Pulse Ox 09/03/17 20:21 98 F 70 19 156/96 H 99 Temperature: Afebrile Blood Pressure: Normal Pulse: Regular Respiratory Rate: Normal Appearance: Positive for: Well-Appearing, Non-Toxic, Comfortable Pain Distress: None Mental Status: Positive for: Alert and Oriented X 3 - Systems Exam Head: Present: Atraumatic, Normocephalic Pupils: Present: PERRL Extroacular Muscles: Present: EOMI Conjunctiva: Present: Normal Mouth: Present: Moist Mucous Membranes Neck: Present: Normal Range of Motion Respiratory/Chest: Present: Clear to Auscultation, Good Air Exchange. No: Respiratory Distress, Accessory Muscle Use Cardiovascular: Present: Regular Rate and Rhythm, Normal S1, S2. No: Murmurs Abdomen: Present: Normal Bowel Sounds. No: Tenderness, Distention, Peritoneal Signs Back: Present: Normal Inspection Upper Extremity: Present: Normal Inspection. No: Cyanosis, Edema Lower Extremity: Present: Normal Inspection. No: Edema Neurological: Present: GCS=15, CN II-XII Intact, Speech Normal, Motor Func Grossly Intact, Normal Sensory Function, Normal Cerebellar Funct Skin: Present: Warm, Dry, Normal Color. No: Rashes Psychiatric: Present: Alert, Oriented x 3, Normal Insight, Normal Concentration Medical Decision Making ED Course and Treatment: 09/03/17 21:25 Impression: Differential Diagnosis included but are not limited to: ro dka uti cva. Plan: -- Reassess and disposition Prior Visits: Notes and results from previous visits were reviewed. Patient was last seen in the emergency department on Progress Notes: EKG shows NSR at [address] BPM with non-specific ST/T changes. Interpreted by me. 09/04/17 01:41 noted previous presentation with similar and previous stroke - will obs for mri - Lab Interpretations Lab Results: 09/03/17 20:50 09/03/17 20:50 Lab Results 09/03/17 21:58: POC Glucose (mg/dL) 344 H 09/03/17 20:50: Sodium 137, Chloride 104, Potassium 4.1, Carbon Dioxide 25, Anion Gap 13, BUN 27 H, Creatinine 0.8, Est GFR ( Amer) > 60, Est GFR ( Non-Af Amer) > 60, Random Glucose 439 H* D, Calcium 9.0, Magnesium 1.8, Total Bilirubin 0.2, AST 32, ALT 30, Alkaline Phosphatase 73, Lactate Dehydrogenase 459, Total Creatine Kinase 49, Troponin I < 0.01, Total Protein 7.0, Albumin 4.0 , Globulin 3.0, Albumin/Globulin Ratio 1.4 09/03/17 20:50: Urine Color Yellow, Urine Appearance Clear, Urine pH 6.0, Ur Specific [place] 1.010, Urine Protein Trace H, Urine Glucose (UA) >=1000, Urine Ketones Negative, Urine Blood Trace-lysed H, Urine Nitrate Negative, Urine Bilirubin Negative, Urine Urobilinogen 0.2, Ur Leukocyte Esterase Negative, Urine RBC 0 - 2, Urine WBC 0 - 2, Ur Epithelial Cells 0 - 2 09/03/17 20:50: PT 11.4, INR 1.04, APTT 27.7 09/03/17 20:50: WBC 8.7, RBC 3.27 L, Hgb 9.4 L, Hct 28.5 L, MCV 87.2, MCH 28.7, MCHC 33.0, RDW 13.1, Plt Count 242, MPV 11.1 H, Gran % 51.7, Lymph % (Auto) 41.1 H, [place] % (Auto) 5.1, Eos % (Auto) 1.5, Baso % (Auto) 0.6, Gran # 4.49, Lymph # 3.6 H, [place] # 0.4, Eos # 0.1, Baso # 0.05 09/03/17 20:50: pO2 30, VBG pH 7.32, VBG pCO2 52.0, VBG HCO3 26.8, VBG Total CO2 28.4 H, VBG O2 Sat (Calc) 61.2, VBG Base Excess -0.1 L, VBG Potassium 4.3, Sodium 138.0, Chloride 105.0, Glucose 456 H*, Lactate 1.3, FiO2 21.0, Venous Blood Potassium 4.3 09/03/17 20:17: POC Glucose (mg/dL) 379 H - RAD Interpretation Radiology Orders: 09/03/17 21:40 HEAD W/O CONTRAST [CT] Stat 09/03/17 21:41 CXR [CHEST PORTABLE] [RAD] Stat - Medication Orders Current Medication Orders: Aspirin (Ecotrin) 81 mg PO DAILY HERBERT Atorvastatin Calcium (Lipitor) 40 mg PO HS HERBERT Donepezil HCl (Aricept) 10 mg PO HS HERBERT Sodium Chloride (Sodium Chloride 0.9%) 1,000 mls @ 100 mls/hr IV .Q10H HERBERT Insulin Detemir (Levemir) 15 unit SC Q12 HERBERT Last Admin: 09/04/17 00:18 Dose: Not Given Non-Admin Reason: Blood Sugar Parameter MAR Blood Glucose Document 09/04/17 00:18 AP (Rec: 09/04/17 00:18 AP [id number]) Blood Glucose Finger Stick Blood Glucose (70-120) 86 Insulin Human Regular (Humulin R Med) 0 units SC ACHS HERBERT PRN Reason: Protocol Lisinopril (Zestril) 5 mg PO DAILY HERBERT Pantoprazole Sodium (Protonix Ec Tab) 20 mg PO 0600 HERBERT Discontinued Medications Aspirin (Aspirin) 325 mg PO STAT STA Stop: 09/03/17 23:19 Last Admin: 09/03/17 23:37 Dose: 325 mg Sodium Chloride (Sodium Chloride 0.9%) 1,000 mls @ 999 mls/hr IV .Q1H1M STA Stop: 09/03/17 21:32 Last Admin: 09/03/17 20:59 Dose: 999 mls/hr eMAR Start Stop Document 09/03/17 20:59 RD (Rec: 09/03/17 20:59 RD [id number]) Intravenous Solution Start Date 09/03/17 Start Time 20:59 End Date 09/03/17 End time 21:59 Total Infusion Time 60 Insulin Human Regular (Humulin R) 4 units IV STAT STA Stop: 09/03/17 21:35 Last Admin: 09/03/17 22:00 Dose: 4 units eMAR Start Stop Document 09/03/17 22:00 ND (Rec: 09/03/17 22:00 ND [id number]) Intravenous Solution Start Date 09/03/17 Start Time 22:00 End Date 09/03/17 End time 22:00 Total Infusion Time 0 MAR Blood Glucose Document 09/03/17 22:00 ND (Rec: 09/03/17 22:00 ND [id number]) Blood Glucose Finger Stick Blood Glucose (70-120) 344 NIHSS Scale ([place]) Time Performed: 23:41 - How Severe is the [place]oke Baseline Level of Consciousness: 0=Alert LOC to Questions: 0=Both comments correct LOC to commands: 0=Obeys both correctly Best Gaze: 0=Normal Visual: 0=No visual loss Facial: 0=Normal Motor Arm - Left: 0=No drift Motor Arm - Right: 0=No drift Motor Leg - Left: 0=No drift Motor Leg - Right: 0=No drift Limb Ataxia: 0=Absent Sensory: 0=Normal Best Language: 0=No aphasia Dysarthia: 0=Normal articulation Extinction & Inattention (Neglect): 0=Normal, no object Score: 0 Risk Level: No Stroke Risk rTPA Inclusion/Exclusion - Refusal of Treatment Patient Refused Treatment: No - Inclusion Criteria for Altepase Patient is 18 years or Older: Yes The Clinical Diagnosis of Ischemic Stroke That is Causing a Potentially Disabling Neurological Deficit: No Time of Onset is Well Established to be Less Than 270 Minute Before Treatment Would Begin: No Risk/Benefit Discussed With Patient/Family Member Present: No Disposition/Present on Arrival - Present on Arrival Any Indicators Present on Arrival: No History of DVT/PE: No History of Uncontrolled Diabetes: Yes Urinary Catheter: No History of Decub. Ulcer: No History Surgical Site Infection Following: None - Disposition Have Diagnosis and Disposition been Completed?: Yes Diagnosis: Altered mental status, Hyperglycemia Disposition: HOSPITALIZED Disposition Time: 01:00 Condition: STABLE
[2017-09-03 21:12] LABS: VENOUS BLOOD GAS BASE EXCESS -0.1 mmol/L (0.0-2.0); VENOUS BLOOD PH 7.32 (7.32-7.43)
[2017-09-03 21:15] LABS: URINE BILIRUBIN NEGATIVE (NEGATIVE); URINE BLOOD TRACE-LYSED (NEGATIVE); URINE GLUCOSE (UA) >=1000 mg/dL (NEGATIVE); URINE KETONE NEGATIVE (NEGATIVE); URINE LEUKOCYTE ESTERASE NEGATIVE Leu/uL (NEGATIVE); URINE PROTEIN TRACE mg/dL (<30 mg/dL); URINE UROBILINOGEN 0.2 E.U./dL (<1 E.U./dL)
[2017-09-03 21:16] LABS: URINE APPEARANCE CLEAR (CLEAR); URINE COLOR YELLOW (YELLOW)
[2017-09-03 21:25] LABS: BASO # 0.05 K/mm3 (0.0-2.0); BASO % 0.6 % (0.0-3.0); EOS # 0.1 (0.0-0.7); EOS % 1.5 % (1.5-5.0); GRAN # 4.49 (1.4-6.5); GRAN % 51.7 % (50.0-68.0); HEMATOCRIT 28.5 % (36.0-48.0); INR 1.04 (0.93-1.08); LYMPH # 3.6 (1.2-3.4); LYMPH % 41.1 % (22.0-35.0); MEAN CELL VOLUME 87.2 fl (80.0-105.0); MEAN CORPUSCULAR HEMOGLOBIN 28.7 pg (25.0-35.0); MEAN PLATELET VOLUME 11.1 fl (7.0-11.0); MONO # 0.4 (0.1-0.6); MONO % 5.1 % (1.0-6.0); PARTIAL THROMBOPLASTIN TIME 27.7 Seconds (25.1-36.5); RED CELL DISTRIBUTION WIDTH 13.1 % (11.5-14.5); WHITE BLOOD COUNT 8.7 10^3/ul (4.5-11.0)
[2017-09-03 21:28] LABS: ALB/GLOB RATIO 1.4 (1.1-1.8); ALKALINE PHOSPHATASE 73 U/L (38-126); ALT/SGPT 30 U/L (7-56); AST/SGOT 32 U/L (14-36); BILIRUBIN,TOTAL 0.2 mg/dL (0.2-1.3); BLOOD UREA NITROGEN 27 mg/dL (7-21); CARBON DIOXIDE 25 mmol/L (21-33); CHLORIDE 104 mmol/L (98-107); GFR AFRICAN-AMERICAN > 60; MAGNESIUM 1.8 mg/dL (1.7-2.2); POTASSIUM 4.1 mmol/L (3.6-5.0); SODIUM 137 mmol/L (132-148)
[2017-09-03 21:31] LABS: GLUCOSE,RANDOM 439 mg/dL (70-110)
[2017-09-03 21:33] LABS: TROPONIN I < 0.01 ng/mL
[2017-09-03] MEDS ORDERED: Insulin Regular 1 UNITS/0.01 ML ML IV STA (21:34)
[2017-09-03 21:35] LABS: URINE EPITHELIAL CELLS 0 - 2 /hpf (0-5); URINE RBC 0 - 2 /hpf (0-2); URINE WBC 0 - 2 /hpf (0-6)
--- NOTE | 2017-09-03 23:10 | CT ---
EXAM: CT Head Without Intravenous Contrast CLINICAL HISTORY: 67 years old, female; Signs and symptoms; Altered mental status/memory loss; Additional info: AMS TECHNIQUE: Axial computed tomography images of the head/brain without intravenous contrast. All CT scans at this facility use one or more dose reduction techniques, viz.: automated exposure control; ma/kV adjustment per patient size (including targeted exams where dose is matched to indication; i.e. head); or iterative reconstruction technique. Coronal and sagittal reformatted images were created and reviewed. COMPARISON: CT - HEAD W/O (CODE STROKE) 2017-02-06 21:52 FINDINGS: Brain: [id number] atrophy. No intracranial hemorrhage. No mass. [id number] encephalomalacia within left occipital parietal region. Multiple scattered foci of decreased attenuation within periventricular/subcortical white matter. Probable chronic lacunar infarct within RIGHT basal ganglia. Chronic lacunar infarct within LEFT thalamus. Probable chronic lacunar infarct within left cerebellum. No definite edema. Ventricles: No hydrocephalus. Bones/joints: No acute fracture. Soft tissues: Small lipoma right frontal scalp. Vasculature: Atherosclerotic disease of intracranial arteries. Sinuses: Scattered minimal mucosal thickening. Mastoid air cells: No mastoid effusion. Orbits: Unremarkable as visualized. IMPRESSION: 1. Nonspecific white matter changes. Acute infarction may be CT occult within first 24 hours. If a focal deficit persists, consider followup CT or MRI for further evaluation. 2. Incidental/non-acute findings are described above.
[2017-09-04] MEDS: Insulin Detemir 100 units/ml Vial (Levemir) SC SCH ×2 (00:18→10:12)
[2017-09-04] MEDS: Sodium Chloride 0.9% 1,000 ML IV SCH ×2 (00:20→09:58)
--- NOTE | 2017-09-04 00:50 | CP.PCM.HP ---
<Eamon Willard - Last Filed: 09/04/17 01:24> History of Present Illness - History of Present Illness History of Present Illness: 67 year old female with past medical history of dementia, CVA, DM, hyperlipidemia, and hypertension presents to the ED with her daughter for altered mental status. Patient speaks Guyanese and daughter is at bedside to translate. Daughter states patient has been having high blood sugars over the past several days. Readings have been between 300-500s. Patient went to see her PMD this past week and she was informed that she has a UTI, but she would need to follow up with a urologist. Daughter also mentions patient has not been acting correctly and this worried her as the patient had a stroke at the beginning of the year. Patient was acting similarly when she had her stoke at the beginning of the year. Patient denies Chest pain, shortness of breath, nausea, vomiting, diarrhea, dysuria, weakness. PMD: Avelino Bolaños PMH: Dementia, CVA, DM, hyperlipidemia, and hypertension PSH: None Social History: Smoking for the past 50 years. Denies Alcohol use. Denies illicit drug use. Lives at home with her daughter Family History: None Meds: As per MAR Allergies:NKDA Present on Admission - Present on Admission Any Indicators Present on Admission: No Review of Systems - Review of Systems Review of Systems: 12 point ROS as per HPI, otherwise negative Past Patient History - Infectious Disease Hx of Infectious Diseases: None - Past Medical History & Family History Past Medical History?: Yes - Past Social History Smoking Status: Former Smoker - CARDIAC Hx Hypertension: Yes - PULMONARY Hx Respiratory Disorders: No Hx Chronic Obstructive Pulmonary Disease (COPD): No Hx Pneumonia: No - NEUROLOGICAL Hx Seizures: Yes - HEENT Hx HEENT Problems: No - RENAL Hx Chronic Kidney Disease: No Hx Renal Failure: No - ENDOCRINE/METABOLIC Hx Diabetes Mellitus Type 2: Yes - HEMATOLOGICAL/ONCOLOGICAL Hx Blood Disorders: Yes - INTEGUMENTARY Hx Dermatological Problems: No - MUSCULOSKELETAL/RHEUMATOLOGICAL Hx Arthritis: Yes Hx Falls: Yes - GASTROINTESTINAL Hx Gastrointestinal Disorders: (c/o difficulty swallowing) - GENITOURINARY/GYNECOLOGICAL Hx Genitourinary Disorders: Yes - PSYCHIATRIC Hx Psychophysiologic Disorder: No Hx Substance Use: No Other/Comment: dementia - SURGICAL HISTORY Hx Cardiac Catheterization: Yes (MANY MANY YEARS AGO) Hx Coronary Stent: Yes (DAUGHTER THINKS SO , BUT NOT SURE) - ANESTHESIA Hx Anesthesia: No Hx Anesthesia Reactions: No Hx Malignant Hyperthermia: No Meds Allergies/Adverse Reactions: Allergies Allergy/AdvReac Type Severity Reaction Status Date / Time No Known Allergies Allergy Verified 03/13/17 00:22 Physical Exam - Constitutional Appears: Non-toxic, No Acute Distress - Head Exam Head Exam: ATRAUMATIC, NORMAL INSPECTION, NORMOCEPHALIC - Eye Exam Eye Exam: EOMI, Normal appearance - ENT Exam ENT Exam: Mucous Membranes Moist, Normal Exam - Respiratory Exam Respiratory Exam: Clear to Auscultation Bilateral, NORMAL BREATHING PATTERN. absent: Rales, Rhonchi, Wheezes - Cardiovascular Exam Cardiovascular Exam: RRR, +S1, +S2 - GI/Abdominal Exam GI & Abdominal Exam: Normal Bowel Sounds, Soft. absent: Tenderness - Extremities Exam Extremities exam: Positive for: normal inspection. Negative for: calf tenderness, pedal edema - Neurological Exam Neurological exam: Alert, CN II-XII Intact, Oriented x3 Additional comments: No sensory or motor deficits 5/5 muscle strength throughout all extremities - Psychiatric Exam Psychiatric exam: Normal Affect, Normal Mood - Skin Skin Exam: Intact, Normal Color, Warm Results - Vital Signs Recent Vital Signs: Last Vital Signs Temp 98 F 09/03/17 20:21 Pulse 70 09/03/17 20:21 Resp 19 09/03/17 20:21 BP 156/96 H 09/03/17 20:21 Pulse Ox 99 09/03/17 20:21 - Labs Result Diagrams: 09/03/17 20:50 09/03/17 20:50 Labs: Laboratory Results - last 24 hr 09/03/17 23:35 POC Glucose (mg/dL) 86 Assessment & Plan - Assessment and Plan (Free Text) Plan: 67 year old female with past medical history of dementia, CVA, DM, hyperlipidemia, and hypertension presents with AMS and hyperglycemia. 1. AMS ASA and Lipitor Continue home dementia meds Hx of CVA Consider neuro consult 2. Hyperglycemia Continue home Levemir 15 units BID Insulin sliding scale HgA1c ordered 3. History of CVA Continue ASA, lipitor 4. History of hypertension Continue Lisinopril 5. Tobacco use Counseled on abstinence Will consider nicotine patch 6. Prophylaxis Protonix SCDs Sudheer, PGY-2 <Dangelo Pink Q - Last Filed: 09/04/17 05:46> Results - Vital Signs Recent Vital Signs: Last Vital Signs Temp 98.6 F 09/04/17 00:32 Pulse 62 09/04/17 01:58 Resp 18 09/04/17 00:32 BP 138/57 L 09/04/17 00:32 Pulse Ox 99 09/03/17 20:21 - Labs Result Diagrams: 09/03/17 20:50 09/03/17 20:50 Labs: Laboratory Results - last 24 hr 09/03/17 09/04/17 09/04/17 23:35 02:09 02:30 POC Glucose (mg/dL) 86 51 L 91 Attending/Attestation - Attestation I have personally seen and examined this patient.: Yes I have fully participated in the care of the patient.: Yes I have reviewed all pertinent clinical information: Yes Notes (Text): 09/04/17 05:42 I agree with the above mentioned note and exam by the resident with the addition /exception of the followin67 y/o female with Dementia, history of CVA, frequent UTI's, uncontrolled DM2 was brought to the ED by her daughter for concerns of an active UTI causing AMS along with hyperglycemia. She reports receiving a call from the PMD's office 4 days prior indicating the patient had a UTI and to schedule a followup appointment with a urology service. She noticed her mother's FS BS ranging from 300-400+ so she became concerned and came to the ER for further evaluation and treatment for her mother. Patient's daughter was informed that there was no active UTI, and that her initial CT Head was also negative for an acute CVA ( Patient did not have any focal neurologic defecits during my exam, she was 5/5 strength bilaterally along with normal CN 2-12 and finger to nose testing). She expressed concern for her elevated blood sugars and was hesitant to bring her mother home. Patient placed on observation with the aim of improving acute fingersticks and ensuring the patient has not developed any new neurological defecits.
[2017-09-04] MEDS ORDERED: Pantoprazole 20 mg EC Tab PO SCH (06:00)
[2017-09-04 06:23] VITALS: RESP 20; TEMP 97.9; O2SAT 98
[2017-09-04 07:00] LABS: BASO # 0.04 K/mm3 (0.0-2.0); BASO % 0.5 % (0.0-3.0); EOS # 0.1 (0.0-0.7); EOS % 1.2 % (1.5-5.0); GRAN # 4.18 (1.4-6.5); GRAN % 51.3 % (50.0-68.0); HEMATOCRIT 28.8 % (36.0-48.0); LYMPH # 3.3 (1.2-3.4); LYMPH % 40.7 % (22.0-35.0); MEAN CELL VOLUME 86.7 fl (80.0-105.0); MEAN CORPUSCULAR HGB CONC 32.3 g/dl (31.0-37.0); MEAN PLATELET VOLUME 11.2 fl (7.0-11.0); MONO # 0.5 (0.1-0.6); MONO % 6.3 % (1.0-6.0); RED CELL DISTRIBUTION WIDTH 13.4 % (11.5-14.5); WHITE BLOOD COUNT 8.1 10^3/ul (4.5-11.0)
[2017-09-04 07:27] LABS: ALB/GLOB RATIO 1.2 (1.1-1.8); ALKALINE PHOSPHATASE 66 U/L (38-126); ALT/SGPT 28 U/L (7-56); AST/SGOT 25 U/L (14-36); BILIRUBIN,TOTAL 0.2 mg/dL (0.2-1.3); BLOOD UREA NITROGEN 21 mg/dL (7-21); CARBON DIOXIDE 24 mmol/L (21-33); CHLORIDE 109 mmol/L (98-107); GFR AFRICAN-AMERICAN > 60; GLUCOSE,RANDOM 161 mg/dL (70-110); POTASSIUM 4.5 mmol/L (3.6-5.0); SODIUM 143 mmol/L (132-148)
[2017-09-04] MEDS: Insulin Reg-MEDIUM-Coverage SC SCH ×2 (07:50→13:03)
--- NOTE | 2017-09-04 08:50 | CARD ---
APPROVED REPORT EKG Measurement Heart [id number] HI [id number] [id number] <Conclusion> Normal sinus rhythm Left axis deviation IVCD ASMI, age unknwn STTW changes c/w ischemia Prolonged QTc
[2017-09-04] MEDS ORDERED: Insulin Detemir 100 units/ml Vial (Levemir) SC SCH (10:15)
--- NOTE | 2017-09-04 10:53 | RAD ---
HISTORY: Weakness COMPARISON: 04/27/2017. FINDINGS: LUNGS: No active pulmonary disease. PLEURA: No significant pleural effusion identified, no pneumothorax apparent. CARDIOVASCULAR: Normal size heart, pulmonary vascular congestion. OSSEOUS STRUCTURES: No significant abnormalities. VISUALIZED UPPER ABDOMEN: Normal. OTHER FINDINGS: None. IMPRESSION: No active pulmonary disease. Mild pulmonary vascular congestion.
[2017-09-04 12:32] VITALS: BP 94/59; PULSE 71
--- NOTE | 2017-09-04 16:42 | CP.PCM.DIS ---
<Radha Rivera - Last Filed: 09/04/17 16:35> Provider - Provider Date of Admission: 09/03/17 23:19 Attending physician: Marcia Calzada MD Primary care physician: Gisella Profile Required Time Spent in preparation of Discharge (in minutes): 35 Diagnosis - Discharge Diagnosis (1) Hyperglycemia Status: Acute Hospital Course - Lab Results Lab Results: Most Recent Lab Values WBC 8.1 10^3/ul (4.5-11.0) 09/04/17 06:00 RBC 3.32 10^6/uL (3.5-6.1) L 09/04/17 06:00 Hgb 9.3 g/dL (12.0-16.0) L 09/04/17 06:00 Hct 28.8 % (36.0-48.0) L 09/04/17 06:00 MCV 86.7 fl (80.0-105.0) 09/04/17 06:00 MCH 28.0 pg (25.0-35.0) 09/04/17 06:00 MCHC 32.3 g/dl (31.0-37.0) 09/04/17 06:00 RDW 13.4 % (11.5-14.5) 09/04/17 06:00 Plt Count 254 10^3/uL (120.0-450.0) 09/04/17 06:00 MPV 11.2 fl (7.0-11.0) H 09/04/17 06:00 Gran % 51.3 % (50.0-68.0) 09/04/17 06:00 Lymph % (Auto) 40.7 % (22.0-35.0) H 09/04/17 06:00 Gaines % (Auto) 6.3 % (1.0-6.0) H 09/04/17 06:00 Eos % (Auto) 1.2 % (1.5-5.0) L 09/04/17 06:00 Baso % (Auto) 0.5 % (0.0-3.0) 09/04/17 06:00 Gran # 4.18 (1.4-6.5) 09/04/17 06:00 Lymph # 3.3 (1.2-3.4) 09/04/17 06:00 Gaines # 0.5 (0.1-0.6) 09/04/17 06:00 Eos # 0.1 (0.0-0.7) 09/04/17 06:00 Baso # 0.04 K/mm3 (0.0-2.0) 09/04/17 06:00 PT 11.4 SECONDS (9.4-12.5) 09/03/17 20:50 INR 1.04 (0.93-1.08) 09/03/17 20:50 APTT 27.7 Seconds (25.1-36.5) 09/03/17 20:50 pO2 30 mm/Hg (30-55) 09/03/17 20:50 VBG pH 7.32 (7.32-7.43) 09/03/17 20:50 VBG pCO2 52.0 (40-60) 09/03/17 20:50 VBG HCO3 26.8 mmol/l (21-28) 09/03/17 20:50 VBG Total CO2 28.4 mmol.L (22-28) H 09/03/17 20:50 VBG O2 Sat (Calc) 61.2 % (40-65) 09/03/17 20:50 VBG Base Excess -0.1 mmol/L (0.0-2.0) L 09/03/17 20:50 VBG Potassium 4.3 mmol/L (3.6-5.2) 09/03/17 20:50 Sodium 138.0 mmol/L (132-148) 09/03/17 20:50 Chloride 105.0 mmol/L (98-107) 09/03/17 20:50 Glucose 456 mg/dl (65-105) H* 09/03/17 20:50 Lactate 1.3 mmol/L (0.7-2.1) 09/03/17 20:50 FiO2 21.0 % 09/03/17 20:50 Sodium 143 mmol/L (132-148) 09/04/17 06:00 Potassium 4.5 mmol/L (3.6-5.0) 09/04/17 06:00 Chloride 109 mmol/L (98-107) H 09/04/17 06:00 Carbon Dioxide 24 mmol/L (21-33) 09/04/17 06:00 Anion Gap 14 (10-20) 09/04/17 06:00 BUN 21 mg/dL (7-21) 09/04/17 06:00 Creatinine 0.8 mg/dl (0.7-1.2) 09/04/17 06:00 Est GFR ( Amer) > 60 09/04/17 06:00 Est GFR (Non-Af Amer) > 60 09/04/17 06:00 POC Glucose (mg/dL) 154 mg/dL (65-110) H 09/04/17 10:01 Random Glucose 161 mg/dL (70-110) H 09/04/17 06:00 Hemoglobin A1c 9.6 % (4.2-6.5) H 09/04/17 06:00 Calcium 9.0 mg/dL (8.4-10.5) 09/04/17 06:00 Magnesium 1.8 mg/dL (1.7-2.2) 09/03/17 20:50 Total Bilirubin 0.2 mg/dL (0.2-1.3) 09/04/17 06:00 AST 25 U/L (14-36) 09/04/17 06:00 ALT 28 U/L (7-56) 09/04/17 06:00 Alkaline Phosphatase 66 U/L (38-126) 09/04/17 06:00 Lactate Dehydrogenase 459 U/L (333-699) 09/03/17 20:50 Total Creatine Kinase 49 U/L (35-230) 09/03/17 20:50 Troponin I < 0.01 ng/mL 09/03/17 20:50 Total Protein 7.0 g/dL (5.8-8.3) 09/04/17 06:00 Albumin 3.9 g/dL (3.0-4.8) 09/04/17 06:00 Globulin 3.1 gm/dL 09/04/17 06:00 Albumin/Globulin Ratio 1.2 (1.1-1.8) 09/04/17 06:00 Venous Blood Potassium 4.3 mmol/L (3.6-5.2) 09/03/17 20:50 Urine Color Yellow (YELLOW) 09/03/17 20:50 Urine Appearance Clear (CLEAR) 09/03/17 20:50 Urine pH 6.0 (4.7-8.0) 12/24/17 20:50 Ur Specific [place] 1.010 (1.005-1.035) 09/03/17 20:50 Urine Protein Trace mg/dL (<30 mg/dL) H 09/03/17 20:50 Urine Glucose (UA) >=1000 mg/dL (NEGATIVE) 09/03/17 20:50 Urine Ketones Negative mg/dL (NEGATIVE) 09/03/17 20:50 Urine Blood Trace-lysed (NEGATIVE) H 09/03/17 20:50 Urine Nitrate Negative (NEGATIVE) 09/03/17 20:50 Urine Bilirubin Negative (NEGATIVE) 09/03/17 20:50 Urine Urobilinogen 0.2 E.U./dL (<1 E.U./dL) 09/03/17 20:50 Ur Leukocyte Esterase Negative Kae/uL (NEGATIVE) 09/03/17 20:50 Urine RBC 0 - 2 /hpf (0-2) 09/03/17 20:50 Urine WBC 0 - 2 /hpf (0-6) 09/03/17 20:50 Ur Epithelial Cells 0 - 2 /hpf (0-5) 09/03/17 20:50 - Hospital Course Hospital Course: 67 year old female with past medical history of Alzheimer's dementia (has family history), CVA, DM, hyperlipidemia, and hypertension presents to the ED with her daughter for altered mental status. Patient speaks [place]i and daughter is at bedside to translate. Daughter states patient has been having high blood sugars over the past several days. Readings have been between 300-500s. Patient went to see her PMD this past week and she was informed that she has a UTI, but she would need to follow up with a urologist. Daughter also mentions patient has not been acting correctly and this worried her as the patient had a stroke at the beginning of the year. Patient denies Chest pain, shortness of breath, nausea, vomiting, diarrhea, dysuria, weakness. Patient afebrile, hemodynamically stable, has no new focal deficits on neurological exam, Labs showed elevated BG 417, with no anion gap and no ketones seen on UA. Head CT neg for acute CVA. UA was also negative for infection. Patient given 4 units HUmulin. Blood glucose stayed stable in 90s-130s. Discussed with patient's daughter regarding compliance with her meds levemir 15 units SQ daily and metformin. Also discussed of maintaining a diary of BG before each meal, for 3 days and taking to PMD for seeing trends and altering diabetic regimen. Patient and daughter advised to avoid sugary foods like cake and other carbs, especially during this holiday season. Discussed with Dr Zheng Rivera, PGY1 Discharge Exam - Head Exam Head Exam: ATRAUMATIC, NORMAL INSPECTION, NORMOCEPHALIC - Additional Findings Additional findings: - Constitutional Appears: Non-toxic, No Acute Distress - Eye Exam Eye Exam: EOMI, Normal appearance - ENT Exam ENT Exam: Mucous Membranes Moist, Normal Exam - Respiratory Exam Respiratory Exam: Clear to Auscultation Bilateral, NORMAL BREATHING PATTERN. absent: Rales, Rhonchi, Wheezes - Cardiovascular Exam Cardiovascular Exam: RRR, +S1, +S2 - GI/Abdominal Exam GI & Abdominal Exam: Normal Bowel Sounds, Soft. absent: Tenderness - Extremities Exam Extremities exam: Positive for: normal inspection. Negative for: calf tenderness, pedal edema - Neurological Exam Neurological exam: Alert, CN II-XII Intact, Oriented x3 Additional comments: No sensory or motor deficits 5/5 muscle strength throughout all extremities - Psychiatric Exam Psychiatric exam: Normal Affect, Normal Mood - Skin Skin Exam: Intact, Normal Color, Warm Discharge Plan - Discharge Medications Prescriptions: Insulin Detemir [Levemir] 15 unit SQ BID 30 Days ml - Follow Up Plan Condition: STABLE Disposition: HOME/ ROUTINE Patient education suggested?: Yes Instructions: Altered Mental Status (GEN), Diabetic Hyperglycemia (DC) Additional Instructions: - Discussed with patient's daughter regarding diabetic diet, and compliance with home meds Levemir 15 units SQ BID and Metformin. Please avoid foods containing high sugars since they can rapidly increase the blood glucose level. - Keep a diary of blood glucose measurements, before each meal, for 3 days and show it to your PMD Dr Avelino Bolaños. - Follow up with PMD within 1 week. - If any concerns, please return to the hospital. Referrals: Gisella Melvin, [Primary Care Provider] - <Marcia Calzada - Last Filed: 09/04/17 17:40> Provider - Provider Date of Admission: 09/03/17 23:19 Attending physician: Marcia Calzada MD Primary care physician: Gisella Shaw Required Hospital Course - Lab Results Lab Results: Most Recent Lab Values WBC 8.1 10^3/ul (4.5-11.0) 09/04/17 06:00 RBC 3.32 10^6/uL (3.5-6.1) L 09/04/17 06:00 Hgb 9.3 g/dL (12.0-16.0) L 09/04/17 06:00 Hct 28.8 % (36.0-48.0) L 09/04/17 06:00 MCV 86.7 fl (80.0-105.0) 09/04/17 06:00 MCH 28.0 pg (25.0-35.0) 09/04/17 06:00 MCHC 32.3 g/dl (31.0-37.0) 09/04/17 06:00 RDW 13.4 % (11.5-14.5) 09/04/17 06:00 Plt Count 254 10^3/uL (120.0-450.0) 09/04/17 06:00 MPV 11.2 fl (7.0-11.0) H 09/04/17 06:00 Gran % 51.3 % (50.0-68.0) 09/04/17 06:00 Lymph % (Auto) 40.7 % (22.0-35.0) H 09/04/17 06:00 Gaines % (Auto) 6.3 % (1.0-6.0) H 09/04/17 06:00 Eos % (Auto) 1.2 % (1.5-5.0) L 09/04/17 06:00 Baso % (Auto) 0.5 % (0.0-3.0) 09/04/17 06:00 Gran # 4.18 (1.4-6.5) 09/04/17 06:00 Lymph # 3.3 (1.2-3.4) 09/04/17 06:00 Gaines # 0.5 (0.1-0.6) 09/04/17 06:00 Eos # 0.1 (0.0-0.7) 09/04/17 06:00 Baso # 0.04 K/mm3 (0.0-2.0) 09/04/17 06:00 PT 11.4 SECONDS (9.4-12.5) 09/03/17 20:50 INR 1.04 (0.93-1.08) 09/03/17 20:50 APTT 27.7 Seconds (25.1-36.5) 09/03/17 20:50 pO2 30 mm/Hg (30-55) 09/03/17 20:50 VBG pH 7.32 (7.32-7.43) 09/03/17 20:50 VBG pCO2 52.0 (40-60) 09/03/17 20:50 VBG HCO3 26.8 mmol/l (21-28) 09/03/17 20:50 VBG Total CO2 28.4 mmol.L (22-28) H 09/03/17 20:50 VBG O2 Sat (Calc) 61.2 % (40-65) 09/03/17 20:50 VBG Base Excess -0.1 mmol/L (0.0-2.0) L 09/03/17 20:50 VBG Potassium 4.3 mmol/L (3.6-5.2) 09/03/17 20:50 Sodium 138.0 mmol/L (132-148) 09/03/17 20:50 Chloride 105.0 mmol/L (98-107) 09/03/17 20:50 Glucose 456 mg/dl (65-105) H* 09/03/17 20:50 Lactate 1.3 mmol/L (0.7-2.1) 09/03/17 20:50 FiO2 21.0 % 09/03/17 20:50 Sodium 143 mmol/L (132-148) 09/04/17 06:00 Potassium 4.5 mmol/L (3.6-5.0) 09/04/17 06:00 Chloride 109 mmol/L (98-107) H 09/04/17 06:00 Carbon Dioxide 24 mmol/L (21-33) 09/04/17 06:00 Anion Gap 14 (10-20) 09/04/17 06:00 BUN 21 mg/dL (7-21) 09/04/17 06:00 Creatinine 0.8 mg/dl (0.7-1.2) 09/04/17 06:00 Est GFR ( Amer) > 60 09/04/17 06:00 Est GFR (Non-Af Amer) > 60 09/04/17 06:00 POC Glucose (mg/dL) 154 mg/dL (65-110) H 09/04/17 10:01 Random Glucose 161 mg/dL (70-110) H 09/04/17 06:00 Hemoglobin A1c 9.6 % (4.2-6.5) H 09/04/17 06:00 Calcium 9.0 mg/dL (8.4-10.5) 09/04/17 06:00 Magnesium 1.8 mg/dL (1.7-2.2) 09/03/17 20:50 Total Bilirubin 0.2 mg/dL (0.2-1.3) 09/04/17 06:00 AST 25 U/L (14-36) 09/04/17 06:00 ALT 28 U/L (7-56) 09/04/17 06:00 Alkaline Phosphatase 66 U/L (38-126) 09/04/17 06:00 Lactate Dehydrogenase 459 U/L (333-699) 09/03/17 20:50 Total Creatine Kinase 49 U/L (35-230) 09/03/17 20:50 Troponin I < 0.01 ng/mL 09/03/17 20:50 Total Protein 7.0 g/dL (5.8-8.3) 09/04/17 06:00 Albumin 3.9 g/dL (3.0-4.8) 09/04/17 06:00 Globulin 3.1 gm/dL 09/04/17 06:00 Albumin/Globulin Ratio 1.2 (1.1-1.8) 09/04/17 06:00 Venous Blood Potassium 4.3 mmol/L (3.6-5.2) 09/03/17 20:50 Urine Color Yellow (YELLOW) 09/03/17 20:50 Urine Appearance Clear (CLEAR) 09/03/17 20:50 Urine pH 6.0 (4.7-8.0) 09/03/17 20:50 Ur Specific [place] 1.010 (1.005-1.035) 09/03/17 20:50 Urine Protein Trace mg/dL (<30 mg/dL) H 09/03/17 20:50 Urine Glucose (UA) >=1000 mg/dL (NEGATIVE) 09/03/17 20:50 Urine Ketones Negative mg/dL (NEGATIVE) 09/03/17 20:50 Urine Blood Trace-lysed (NEGATIVE) H 09/03/17 20:50 Urine Nitrate Negative (NEGATIVE) 09/03/17 20:50 Urine Bilirubin Negative (NEGATIVE) 09/03/17 20:50 Urine Urobilinogen 0.2 E.U./dL (<1 E.U./dL) 09/03/17 20:50 Ur Leukocyte Esterase Negative Kae/uL (NEGATIVE) 09/03/17 20:50 Urine RBC 0 - 2 /hpf (0-2) 09/03/17 20:50 Urine WBC 0 - 2 /hpf (0-6) 09/03/17 20:50 Ur Epithelial Cells 0 - 2 /hpf (0-5) 09/03/17 20:50 Attending/Attestation - Attestation I have personally seen and examined this patient.: Yes I have fully participated in the care of the patient.: Yes I have reviewed all pertinent clinical information, including history, physical exam and plan: Yes Notes (Text): 09/04/17 17:36 Patient was seen and examined with medical technologist. Agreed with resident assessment and plan. 67 Yrs old female with PMH of DM/HTN .CVA , Congitive dysfunction , was recently treated for UTI was admitted as daughter felt that her mental status is different. Patient is afebrile.Mental status is at base line.There is no evidence of any infection at this time.There is no focal deficit. Patient will be discharged home and will follow up with PCP.
== END 2017-09-04 14:51 | disposition home or self-care (01) ==
LOC: ED 20:02 → ERH 23:19 → 3RNO 09-04 00:18
PROVIDERS: ADMIT Internal Medicine; ATTEND Internal Medicine
DX: E11.65 Type 2 diabetes mellitus with hyperglycemia (principal); R41.82 Altered mental status, unspecified; E78.5 Hyperlipidemia, unspecified; F02.80 Dementia in other diseases classified elsewhere, unspecified severity, without behavioral disturbance, psychotic disturbance, mood disturbance, and anxiety; G30.9 Alzheimer's disease, unspecified; I10 Essential (primary) hypertension; Z86.73 Personal history of transient ischemic attack (TIA), and cerebral infarction without residual deficits; N39.0 Urinary tract infection, site not specified; Z79.4 Long term (current) use of insulin; Z79.899 Other long term (current) drug therapy; Z87.440 Personal history of urinary (tract) infections; Z95.5 Presence of coronary angioplasty implant and graft; Z86.69 Personal history of other diseases of the nervous system and sense organs; M19.90 Unspecified osteoarthritis, unspecified site; R40.2412 Glasgow coma scale score 13-15, at arrival to emergency department; R13.10 Dysphagia, unspecified; Z72.0 Tobacco use
CPT/HCPCS: 36415; 70450; 71010; 80053; 81001; 82550; 82803; 82948; 83036; 83615; 83735; 84484; 85025; 85610; 85730; 93005; 96360; 99282; G0378; J7040